=== PATIENT | male | born 1935 | race Caucasian/White ===

== ENCOUNTER → 2016-09-27 | Outpatient (CLI) | payer MEDICARE, OTHER ==
[~2016-09-27] MED LIST: ADV250INH INH; BENI20TA3 PO; CALC1CAP31 PO; CLIN1CAP5 PO; CORE40CA PO; DOXY200C PO; DULO1CAP3 PO; EUCECRE3 TOP; FERR325T3 PO; FURO20TA2 PO; IPRASOL4 INH; LEVE1INJ5 SC; LEVO750T33 PO; OMEP20CA3 PO; RENATAB5 PO; SPIR1CAP INH; VIT D2 PO
[2016-09-27 18:24] LABS: ALBUMIN 3.6 GM/DL (3.2-5.2); ALBUMIN/GLOBULIN RATIO 1.13 (1.00-1.93); BILIRUBIN,TOTAL 0.4 MG/DL (0.2-1.0); CALCIUM LEVEL 8.6 MG/DL (8.8-10.2); CREATININE FOR GFR 1.41 MG/DL (0.70-1.30); GLOMERULAR FILTRATION RATE 51.6 (>42); POTASSIUM SERUM 4.3 MEQ/L (3.5-5.1); TOTAL PROTEIN 6.8 GM/DL (6.4-8.2)
[2016-09-27 19:11] LABS: BASO # 0.1 K/mm3 (0.0-0.2); BASO % 0.8 % (0.0-1.0); EOS # 0.2 K/mm3 (0.0-0.50); EOS % 2.5 % (0.0-3.0); LYMPH % 24.2 % (24.0-44.0); MEAN CORPUSCULAR HEMOGLOBIN 27.3 pg (27.0-33.0); MEAN CORPUSCULAR HGB CONC 30.7 g/dl (32.0-36.5); MONO # 0.5 K/mm3 (0.0-0.8); MONO % 5.9 % (0.0-5.0); NEUTROPHILS # 5.2 K/mm3 (1.8-7.7); NEUTROPHILS % 63.3 % (36.0-66.0); RED CELL DISTRIBUTION WIDTH 14.1 % (11.5-14.5); WHITE BLOOD COUNT 8.1 K/mm3 (4.0-10.0)
== END ==
LOC: M LAB 15:33
PROVIDERS: ATTEND Physician Assistant Medical
DX: E11.9 Type 2 diabetes mellitus without complications (principal); E55.9 Vitamin D deficiency, unspecified

== ENCOUNTER → 2017-01-29 | Outpatient (CLI) | payer MEDICARE, OTHER ==
[~2017-01-29] MED LIST changes: +BENI20TA18 PO; -BENI20TA3 PO; +CLIN150C14 PO; -CLIN1CAP5 PO; +LEVO750T13 PO; -LEVO750T33 PO
[2017-01-29 19:46] LABS: ALBUMIN/GLOBULIN RATIO 1.05 (1.00-1.93); BILIRUBIN,TOTAL 0.7 MG/DL (0.2-1.0); CALCIUM LEVEL 9.5 MG/DL (8.8-10.2); CREATININE FOR GFR 1.58 MG/DL (0.70-1.30); GLOMERULAR FILTRATION RATE 45.3 (>42); POTASSIUM SERUM 4.3 MEQ/L (3.5-5.1); TOTAL PROTEIN 7.8 GM/DL (6.4-8.2)
[2017-01-29 20:10] LABS: BASO # 0.1 K/mm3 (0.0-0.2); EOS # 0.2 K/mm3 (0.0-0.50); EOS % 1.7 % (0.0-3.0); LYMPH # 1.8 K/mm3 (1.5-4.5); LYMPH % 15.8 % (24.0-44.0); MEAN CORPUSCULAR HGB CONC 33.2 g/dl (32.0-36.5); MEAN CORPUSCULAR VOLUME 90.6 fl (80.0-96.0); MONO # 0.5 K/mm3 (0.0-0.8); MONO % 4.8 % (0.0-5.0); NEUTROPHILS # 8.4 K/mm3 (1.8-7.7); NEUTROPHILS % 74.7 % (36.0-66.0); RED CELL DISTRIBUTION WIDTH 13.8 % (11.5-14.5); WHITE BLOOD COUNT 11.2 K/mm3 (4.0-10.0)
== END ==
LOC: M LAB 16:17
PROVIDERS: ATTEND Physician Assistant Medical
DX: E11.9 Type 2 diabetes mellitus without complications (principal)

== ENCOUNTER → 2017-06-16 | Outpatient (CLI) | payer MEDICARE, OTHER ==
[2017-06-16 10:32] LABS: BASO # 0.1 10^3/uL (0.0-0.2); BASO % 0.5 % (0.0-1.0); EOS # 0.2 10^3/uL (0.0-0.50); IMMATURE GRANULOCYTE % 0.6 % (0-0); LYMPH # 1.8 10^3/uL (1.5-4.5); LYMPH % 15.6 % (24.0-44.0); MEAN CORPUSCULAR HEMOGLOBIN 29.4 pg (27.0-33.0); MEAN CORPUSCULAR HGB CONC 32.8 g/dl (32.0-36.5); MEAN CORPUSCULAR VOLUME 89.5 fl (80.0-96.0); MONO # 0.8 10^3/uL (0.0-0.8); MONO % 7.3 % (0.0-5.0); NEUTROPHILS # 8.6 10^3/uL (1.8-7.7); PLATELET COUNT, AUTOMATED 302 10^3/uL (150-450); RED CELL DISTRIBUTION WIDTH 13.4 % (11.5-14.5); WHITE BLOOD COUNT 11.6 10^3/uL (4.0-10.0)
[2017-06-16 11:07] LABS: ALBUMIN 3.5 GM/DL (3.2-5.2); ALBUMIN/GLOBULIN RATIO 1.06 (1.00-1.93); BILIRUBIN,TOTAL 0.6 MG/DL (0.2-1.0); CALCIUM LEVEL 8.9 MG/DL (8.8-10.2); CREATININE FOR GFR 1.31 MG/DL (0.70-1.30); POTASSIUM SERUM 3.5 MEQ/L (3.5-5.1); THYROXINE (T4) 9.1 UG/DL (4.5-12.0); TOTAL PROTEIN 6.8 GM/DL (6.4-8.2)
--- NOTE | 2017-06-16 14:10 | REP ---
MRI BRAIN WITHOUT CONTRAST: HISTORY: Confusion. COMPARISON: 06/13/2015. Areas of increased signal intensity on T2-weighted images are present in the periventricular and subcortical white matter and silva. This represents small vessel ischemic disease. There is no intraparenchymal hemorrhage, infarct, mass or midline shift. The ventricular system and cortical sulci as well as subarachnoid space in the posterior fossa are dilated consistent with mild volume loss. There is no extracerebral collection. The sinuses are clear. IMPRESSION: 1. Small vessel ischemic disease. 2. Mild volume loss. Signed by Sid Wheatley MD 06/16/2017 02:09 P
== END ==
LOC: M LAB 09:58
PROVIDERS: ATTEND Physician Assistant Medical
DX: E11.9 Type 2 diabetes mellitus without complications (principal); R55 Syncope and collapse; R90.82 White matter disease, unspecified

== ENCOUNTER 2017-11-23 16:20 | Emergency (ER) | payer MEDICARE, OTHER ==
[2017-11-23] MEDS: ACETAMINOPHEN TAB 650MG DOSE (2X325MG) PO (17:34)
== END 2017-11-23 18:18 | disposition home or self-care (01) ==
LOC: M ED 16:20
DX: S40.011A Contusion of right shoulder, initial encounter (principal); R91.1 Solitary pulmonary nodule; W01.10XA Fall on same level from slipping, tripping and stumbling with subsequent striking against unspecified object, initial encounter; Y92.099 Unspecified place in other non-institutional residence as the place of occurrence of the external cause; Y93.9 Activity, unspecified; Y99.9 Unspecified external cause status; J44.9 Chronic obstructive pulmonary disease, unspecified; K21.9 Gastro-esophageal reflux disease without esophagitis; Z87.891 Personal history of nicotine dependence; Z79.4 Long term (current) use of insulin; Z79.899 Other long term (current) drug therapy
CPT/HCPCS: 73030

== ENCOUNTER → 2018-11-03 | Outpatient (CLI) | payer MEDICARE, OTHER ==
[~2018-11-03] MED LIST changes: +IPRA0.00 INH; -IPRASOL4 INH
[2018-11-03 16:18] LABS: HEMOGLOBIN A1c 6.9 %
[2018-11-03 16:19] LABS: ALBUMIN 4.1 GM/DL (3.2-5.2); BILIRUBIN,TOTAL 0.5 MG/DL (0.2-1.0); CALCIUM LEVEL 8.9 MG/DL (8.8-10.2); CREATININE FOR GFR 1.51 MG/DL (0.70-1.30); GLOMERULAR FILTRATION RATE 47.5 (>35); POTASSIUM SERUM 3.8 MEQ/L (3.5-5.1); TOTAL PROTEIN 7.3 GM/DL (6.4-8.2)
[2018-11-03 16:37] LABS: TOTAL 25(OH) VITAMIN D 27.7 NG/ML (30.0-100.0)
== END ==
LOC: M LAB 15:12
PROVIDERS: ATTEND Family Medicine Addiction Medicine
DX: E11.9 Type 2 diabetes mellitus without complications (principal)

== ENCOUNTER 2019-02-21 15:41 | Emergency (ER) | payer MEDICARE, OTHER ==
[~2019-02-21] VITALS: Ht 172.7 cm; Wt 93.6 kg
[~2019-02-21 15:41] MED LIST changes: -DULO1CAP3 PO; +DULO1CAP6 PO; +OMEP1CAP73 PO; -OMEP20CA3 PO
[2019-02-21] MEDS ORDERED: IBUPROFEN 600 MG TAB PO ONE (16:30)
[2019-02-21] MEDS ORDERED: NORCO, ANEXSIA 5/325MG TABLET (HYDROcodone/ACETAMINOPHEN) PO ONE (17:30)
--- NOTE | 2019-02-21 17:46 | REP ---
Clinical: Trauma. Technique: AP and lateral views of the right humerus. Findings: There is a comminuted fracture of the humeral surgical neck. Overlying soft tissue swelling. Impression: Comminuted fracture of the humeral surgical neck. Electronically Signed by Zachary Gomez MD 02/21/2019 05:37 P
--- NOTE | 2019-02-21 17:49 | REP ---
Clinical: Trauma. Fall. Technique: Internal rotation, external rotation view of the right shoulder. Findings: There is a comminuted angulated fracture through the humeral neck. Overlying soft tissue swelling noted. Underlying osteopenia and age-related degenerative changes. Impression: Comminuted fracture of the humeral neck. Electronically Signed by Zachary Gomez MD 02/21/2019 05:40 P
--- NOTE | 2019-02-21 17:52 | REP ---
Clinical: Trauma. Fall. Technique: AP and angled views of the right clavicle. Findings: There is a comminuted fracture through the humeral surgical neck. Osteopenia and degenerative changes are appreciated. The clavicle is intact. Impression: 1. No clavicle fracture. 2. Comminuted humeral neck fracture. 3. Underlying osteopenia and degenerative changes. Electronically Signed by Zachary Gomez MD 02/21/2019 05:44 P
[2019-02-21] MEDS ORDERED: NORC1TAB7 PO (18:08)
[2019-02-21 18:15] VITALS: BP 142/91
== END 2019-02-21 18:20 | disposition home or self-care (01) ==
LOC: M ED 15:41
DX: S42.211A Unspecified displaced fracture of surgical neck of right humerus, initial encounter for closed fracture (principal); W18.39XA Other fall on same level, initial encounter; Y92.018 Other place in single-family (private) house as the place of occurrence of the external cause; J44.9 Chronic obstructive pulmonary disease, unspecified; E11.9 Type 2 diabetes mellitus without complications; I10 Essential (primary) hypertension; F41.9 Anxiety disorder, unspecified; K21.9 Gastro-esophageal reflux disease without esophagitis; Z79.899 Other long term (current) drug therapy; Z79.4 Long term (current) use of insulin; Z87.891 Personal history of nicotine dependence

== ENCOUNTER 2019-03-26 17:05 | Inpatient (IN) | payer MEDICARE, OTHER ==
[~2019-03-26] VITALS: Ht 172.7 cm; Wt 88.5 kg
[~2019-03-26 17:05] MED LIST changes: +NORC1TAB7 PO
[2019-03-26 17:38] LABS: BASO # 0.1 10^3/uL (0.0-0.2); BASO % 0.5 % (0.0-1.0); EOS # 0.4 10^3/uL (0.0-0.5); EOS % 2.9 % (0.0-3.0); HEMATOCRIT 43.7 % (42.0-52.0); HEMOGLOBIN 14.3 g/dl (13.5-17.5); LYMPH # 1.9 10^3/uL (1.5-5.0); LYMPH % 13.6 % (24.0-44.0); MEAN CORPUSCULAR HEMOGLOBIN 30.3 pg (27.0-33.0); MEAN CORPUSCULAR HGB CONC 32.7 g/dl (32.0-36.5); MEAN CORPUSCULAR VOLUME 92.6 fl (80.0-96.0); MONO % 6.9 % (0.0-5.0); NEUTROPHILS # 10.8 10^3/uL (1.5-8.5); NEUTROPHILS % 75.5 % (36.0-66.0); PLATELET COUNT, AUTOMATED 354 10^3/uL (150-450); RED BLOOD COUNT 4.72 10^6/uL (4.30-6.10); WHITE BLOOD COUNT 14.3 10^3/uL (4.0-10.0)
[2019-03-26 17:52] LABS: INR 1.04; PROTHROMBIN TIME 13.3 SECONDS (11.8-14.0)
[2019-03-26] MEDS: METOPROLOL 5 MG/5 ML VIAL IV SCH ×3 (17:53→19:10)
[2019-03-26 18:10] LABS: ALBUMIN 3.4 GM/DL (3.2-5.2); ALT/SGPT 40 U/L (12-78); BILIRUBIN,DIRECT 0.3 MG/DL (0.0-0.2); BILIRUBIN,TOTAL 0.6 MG/DL (0.2-1.0); BLOOD UREA NITROGEN 17 MG/DL (7-18); CALCIUM LEVEL 10.1 MG/DL (8.8-10.2); CARBON DIOXIDE LEVEL 27 MEQ/L (21-32); CHLORIDE LEVEL 102 MEQ/L (98-107); CK-MB VALUE MASS < 1.0 NG/ML (<3.6); CPK CREATINE PHOSPHOKINASE 29 U/L (39-308); CREATININE FOR GFR 1.17 MG/DL (0.70-1.30); GLOMERULAR FILTRATION RATE > 60.0 (>35); GLUCOSE, FASTING 150 MG/DL (70-100); MB/CK RELATIVE INDEX 3.45 (< OR =4); NT-PRO BNP 433 PG/ML (<450); POTASSIUM SERUM 4.1 MEQ/L (3.5-5.1); SODIUM LEVEL 138 MEQ/L (136-145); THYROXINE (T4) 9.5 UG/DL (4.5-12.0); TOTAL PROTEIN 7.4 GM/DL (6.4-8.2); TROPONIN I < 0.02 NG/ML (< 0.10)
--- NOTE | 2019-03-26 18:13 | REP ---
Clinical: Cough . Comparison: 05/24/2014 . Findings: The mediastinum and cardiac silhouette are stable and within normal limits for portable technique. The lung heredia demonstrate chronic interstitial changes without focal consolidation, effusion, or pneumothorax. Skeletal structures are intact. Impression: No focal consolidation or effusion. Chronic interstitial changes versus mild interstitial edema. Electronically Signed by Zachary Gomez MD 03/26/2019 06:05 P
[2019-03-26] MEDS ORDERED: LEVALBUTEROL 1.25 MG/0.5 ML CONCENTRATE NEB NEB ONE (18:45)
--- NOTE | 2019-03-26 19:39 | ECGEPIP ---
[facility] - ED Test Date: 2019-03-26 Pat Name: AKASH EARLY Department: Room: - Gender: Male Erp Specialist: lt : 1935 Requested By: SYD ELLER Order Number: [id number] Reading MD: Adonis Ahn Measurements Intervals [place] Rate: 156 P: [place]: 0 QRS: -45 QRSD: 75 T: 41 QT: 276 QTc: 445 Interpretive Statements ATRIAL FIBRILLATION WITH RAPID VENTRICULAR RESPONSE NO PRIORS FOR COMPARISON Electronically Signed on 03-26-2019 19:38:59 EDT by Adonis Ahn
--- NOTE | 2019-03-26 19:50 | HPEPDOC ---
[facility] Medical History & Physical Date of Admission Mar 26, 2019 Date of Service: Mar 26, 2019 Primary Care Physician: A Other Provider Aiden Miranda MD Attending Physician: YVETTE SHEIKH MD History and Physical TIME OF SERVICE: 9:35 PM CHIEF COMPLAINT: Sent by PCP HISTORY OF PRESENT ILLNESS: This is an 83-year-old male who was sent to the ED for evaluation by his PCP. Prior to arrival he "felt dizzy didn't feel right". He went to his PCP who sent him here for evaluation. Specifically, he had dyspnea at rest and with walking. He thinks that his COPD is acting up because of the change in the weather; he had to increase his oxygen from 2 L to 5 L. He has been coughing more than usual, but denies having a change in the color of the sputum. He denies having chest pain, denies any weight, denies having leg swelling. About 2 weeks ago he fell and fractured his right arm which his reports was managed conservatively because of his age, and comorbidities. In the ED, EKG showed A. fib with RVR, which is new. REVIEW OF SYSTEMS: 12 point review of systems negative except as listed in HPI PAST MEDICAL/ SURGICAL HISTORY: COPD with chronic respiratory failure and dependence on 2 L of nasal cannula. Diabetes CKD 3 Dyslipidemia. Chronic Hypertension. Chronic Coronary artery disease GERD. Hemorrhoids. Diverticulosis. Status post resection of colonic polyp Status post incision and drainage of left thigh abscess Status post repair of right humeral fracture Status post cholecystectomy Status post inguinal hernia repair SOCIAL HISTORY: Former smoker FAMILY HISTORY: CAD Diabetes ALLERGIES: Please see below. HOME MEDICATIONS: Please see below. PHYSICAL EXAMINATION: VITAL SIGNS: Please see below. GENERAL APPEARANCE: Well-nourished, well-developed, not in apparent distress HEENT: Normocephalic, atraumatic, nasal cannula, place, mucous membranes slightly dry CARDIOVASCULAR: Heart rate irregularly irregular, there is no lower extremity edema LUNGS: The patient is unable to speak full sentences without having to stop to rest, he is using accessory muscles to breathe. There is equal air entry bilaterally, along with expiratory wheezing bilaterally ABDOMEN: Soft, nontender and not distended MUSCULOSKELETAL: Range of motion intact in all 4 extremities except for left arm which is in a sling NEUROLOGICAL: Numerous 2-12 are grossly intact. Speech is not dysarthric PSYCHIATRIC: Alert and oriented, able to understand and follow commands LABORATORY DATA: See below. IMAGING: Chest x-ray is negative for a focal consolidation, or effusion. There are chronic interstitial changes may also represent mild interstitial edema MICROBIOLOGY: Please see below. ASSESSMENT: Mr. English is an 83-year-old male with a past medical history of insulin- dependent diabetes mellitus, COPD, CKD 3 dyslipidemia and hypertension will be admitted for management of newly diagnosed A. fib with RVR, and acute COPD. PLAN: 1. Multifactorial Dyspnea Secondary to acute COPD and A. fib with RVR Patient is not back to his baseline of 2 L of O2 BNP wnl Plan: admit to PCU for management of A.fib / O2 via NC / f/u D-dimer to rule out A. fib as the patient recently had a heart fracture & ABG 2. A. fib with RVR -likely 2/2 acute COPD / will r/o PE -EKG per HPI -Trop, BNP, TSH, K, Ca wnl -CHADS VASC Score to determine risk of stroke = 5 = needs aC Plan: telemetry / f/u serial trops / rate rhythm control w Metoprolol 25mg PO BID / anticoagulant w heparin drip pending Echo to r/o valvulopathy / pt will also need outpatient sleep study 3. Acute on chronic COPD Likely due to the change in the weather causing bronchitis SIRS criteria include leukocytosis and tachycardia , but clinically the patient does not appear septic Chest x-ray didn't show any acute process Plan: f/u ABG , d-dimer, O2 / continue Spiriva/Dunebs Q6H, Albuterol Q4HP, Prednisone + PPI / levofloxacin/Tessalon Pearls / refer to [facility] for repeat PFTs and Pulmonary Rehab when ready for d/c 4. Hypomagnesemia. Plan: Repeat magnesium and follow up lytes in the morning 5. Old left arm fracture. Plan: Continue with sling / lidocaine patch, Tylenol and tramadol for pain, 6. Diabetes Plan: diabetic diet / f/u accuchecks & A1C / hypoglycemia protocol / the tumor 26 units daily + sliding scale insulin / hold oral anti-glycemics 7. Chronic Hypertension. Plan: Continue home meds 8 Chronic Coronary artery disease /Dyslipidemia. Plan: Continue home meds 9. CKD 3 At baseline Plan: Follow-up BMP daily. Avoid nephrotoxins 10 GERD. Plan: PPIs 11.Overweight BMI 29 Plan: f/u w PCP to discuss diet / recommend 40 min of cardiovascular exercise 4- 5 days a week DVT prophylaxis with heparin drip pending Echo to rule out valvulopathy Disposition pending clinical course Vital Signs Vital Signs Date Time Temp Pulse Resp B/P (MAP) Pulse Ox O2 Delivery O2 Flow Rate FiO2 03/26/19 19:10 98 133/84 03/26/19 18:00 Room Air 03/26/19 17:10 97.4 26 97 2.0 Laboratory Data Labs 24H Laboratory Tests 2 03/26/19 17:19: Immature Granulocyte % (Auto) 0.6, White Blood Count 14.3H, Red Blood Count 4.72, Hemoglobin 14.3, Hematocrit 43.7, Mean Corpuscular Volume 92.6, Mean Corpuscular Hemoglobin 30.3, Mean Corpuscular Hemoglobin Concent 32.7, Red Cell Distribution Width 14.0, Platelet Count 354, Neutrophils (%) (Auto) 75.5H, Lymphocytes (%) (Auto) 13.6L, Monocytes (%) (Auto) 6.9H, Eosinophils (%) (Auto) 2.9, Basophils (%) (Auto) 0.5, Neutrophils # (Auto) 10.8H, Lymphocytes # (Auto) 1.9, Monocytes # (Auto) 1.0H, Eosinophils # (Auto) 0.4, Basophils # (Auto) 0.1, Nucleated Red Blood Cells % (auto) 0.0, Prothrombin Time 13.3, Prothromb Time I nternational Ratio 1.04, Anion Gap 9, Glomerular Filtration Rate > 60.0, Calcium Level 10.1, Aspartate Amino Transf (AST/SGOT) 30, Alanine Aminotransferase (ALT/SGPT) 40, Alkaline Phosphatase 155H, Total Bilirubin 0.6, Direct Bilirubin 0.3H, Total Creatine Kinase 29L, Creatine Kinase MB < 1.0, Creatine Kinase MB Relative Index 3.45, Troponin I < 0.02, SW-Cgh-U-Type Natriuretic Peptide 433, Total Protein 7.4, Albumin 3.4, Albumin/Globulin Ratio 0.85L, Thyroid Stimulating Hormone (TSH) 2.180, Thyroxine (T4) 9.5 03/26/19 17:20: Lactic Acid Level 1.6 03/26/19 17:22: POC pH (Misc Panel) 7.381, POC Base Excess (Misc Panel) 0.0, POC Saturated Percent O2 (Misc) 96, POC pO2 (Misc Panel) 83.0, POC pCO2 (Misc Panel) 41.6, POC HCO3 (Misc Panel) 24.7, POC Total CO2 (Misc Panel) 26.0 CBC/BMP Laboratory Tests 03/26/19 17:19 Red Blood Count 4.72, Mean Corpuscular Volume 92.6, Mean Corpuscular Hemoglobin 30.3, Mean Corpuscular Hemoglobin Concent 32.7, Red Cell Distribution Width 14.0, Neutrophils (%) (Auto) 75.5 H, Lymphocytes (%) (Auto) 13.6 L, Monocytes (%) (Auto) 6.9 H, Eosinophils (%) (Auto) 2.9, Basophils (%) (Auto) 0.5, Neutrophils # (Auto) 10.8 H, Lymphocytes # (Auto) 1.9, Monocytes # (Auto) 1.0 H, Eosinophils # (Auto) 0.4, Basophils # (Auto) 0.1 Microbiology Microbiology 03/26/19 Blood Culture, Received Pending 03/26/19 Blood Culture, Received Pending Home Medications Scheduled Duloxetine Hcl (Duloxetine HCl) 60 Mg Cap, 60 MG PO DAILY Ergocalciferol (Vitamin D2) (Vitamin D2) 50,000 Unit Capsule, 50,000 UNIT PO 1XWK TAKES ON FRIDAY Ferrous Sulfate (Ferrous Sulfate) 325 Mg Tab, 325 MG PO DAILY Insulin Detemir (Levemir Flextouch) 100 Unit/Ml Inj, 26 UNIT SC DAILY Ipratropium/Albuterol Sulfate (Iprat-Albut 0.5-3(2.5) mg/3 ml) 1 Lia Lia, 1 INH INH Q4H Omeprazole (Omeprazole) 20 Mg Cap, 20 MG PO DAILY Salmeterol/Fluticasone (Advair 250-50 Diskus) 14 Puff/Inhaler Aerp, 1 PUFF INH B ID Tiotropium [place] (Spiriva) 18 Mcg Cap, 1 INH INH DAILY Allergies Coded Allergies: No Known Allergies (Verified , 03/06/04) A-FIB/CHADSVASC A-FIB History Current/History of A-Fib/PAF?: Yes Current PO Anticoag Therapy: Yes Age/Risk Factor Scoring CHADSVASC: CHADSVASC Response (Comments) Value Age Risk Factor Age >/= 75 years old 2 Gender Risk Factor Male 0 Hx of CHF No 0 Hx of HTN Yes 1 Hx of Stroke/TIA/or VTE No 0 Hx of Diabetes Yes 1 Hx of Vascular Disease Yes 1 Total 5 YVETTE SHEIKH MD Mar 26, 2019 19:50
[2019-03-26] MEDS ORDERED: HEPARIN SOD (PORCINE) 5000 UNITS/ML VIAL IV STA (20:09)
[2019-03-26] MEDS ORDERED: methylPREDNISolone INJ 125 MG/2 ML VIAL (J2930) IV STA (20:09)
[2019-03-26] MEDS ORDERED: ALBUTEROL SULFATE 2.5 MG/0.5 ML INH NEB SOLN NEB PRN (20:15)
[2019-03-26] MEDS ORDERED: DEXTROSE 50% 50 ML SYRINGE IV PRN (20:15)
[2019-03-26] MEDS ORDERED: VITA50005 PO (20:23)
[2019-03-26] MEDS: HumaLOG INSULIN (NovoLOG) PER UNIT SC SCH (20:48)
[2019-03-26] MEDS ORDERED: BENZONATATE 100 MG CAP PO ONE (21:00)
[2019-03-26] MEDS: METOPROLOL TART 25 MG TABLET PO SCH (21:03)
[2019-03-26 21:51] LABS: CPK CREATINE PHOSPHOKINASE 30 U/L (39-308); MAGNESIUM LEVEL 1.5 MG/DL (1.8-2.4); MB/CK RELATIVE INDEX 3.33 (< OR =4); TROPONIN I < 0.02 NG/ML (< 0.10)
[2019-03-26] MEDS ORDERED: MAGNESIUM OXIDE 400 MG TAB (MAG-OX) PO ONE (22:30)
[2019-03-26] MEDS ORDERED: LevoFLOXacin IV 500 MG in IV 1 EA IV ONE (22:30)
[2019-03-26] MEDS ORDERED: ISOVUE-370 76% 100ML VIAL (Q9967) As Ordered ONE (22:30)
--- NOTE | 2019-03-26 23:13 | REPVR ---
EXAM: CT Angiography Chest With Contrast EXAM DATE/TIME: 03/26/2019 10:41 PM CLINICAL HISTORY: 83 years old, male; Dyspnea; Additional info: Dyspnea, recent arm fracture, elevated d-dimer TECHNIQUE: Imaging protocol: Computed tomographic angiography of the chest with intravenous contrast. 3D rendering: MIP reconstructed images were created and reviewed. Radiation optimization: All CT scans at this facility use at least one of these dose optimization techniques: automated exposure control; mA and/or kV adjustment per patient size (includes targeted exams where dose is matched to clinical indication); or iterative reconstruction. Contrast material: ISOVUE 370; Contrast volume: 75 ml; Contrast route: IV; COMPARISON: CT CHEST W/O CONTRAST - OUTSIDE PRIOR 06/01/2015 1:51 PM FINDINGS: Pulmonary arteries: There are no pulmonary emboli. Aorta: The aorta demonstrates mild atherosclerotic calcification. There is no aortic dissection or aneurysm. Lungs: Focus of parenchymal scarring right apex. Irregular parenchymal opacity in the right upper lobe measuring approximately 1.5 x 3.6 cm associated with pleural tenting may represent postsurgical changes which should be correlated clinically. The opacity is in the same location of a previously demonstrated right upper lobe nodule. Increase interstitial markings demonstrated bilaterally most pronounced in the lower lung zones. Bilateral centrilobular emphysematous changes stable in appearance. Pleural space: Unremarkable. No pneumothorax. No pleural effusion. Heart: Unremarkable. No cardiomegaly. No pericardial effusion. Lymph nodes: Unremarkable. No enlarged lymph nodes. Bones/joints: Fractured proximal humerus on the right. Rib deformity lateral aspect of the right third rib may be related to prior fracture and/or postsurgical changes. The spine demonstrates mild degenerative changes. Soft tissues: Unremarkable. IMPRESSION: 1. Bilateral centrilobular emphysematous changes stable in appearance. 2. There is no aortic dissection or aneurysm. 3. There are no pulmonary emboli. Electronically signed by: Cuauhtemoc Nickerson On 03/26/2019 23:12:51 PM
[2019-03-26] MEDS: LIDOCAINE 5% (LIDODERM) PATCH TD SCH (23:26)
[2019-03-27] VITALS (7 sets, daily range): BP systolic 108–171; BP diastolic 58–89
[2019-03-27] MEDS: traMADol ER 100MG TABLET (ULTRAM ER) PO SCH ×2 (00:38→20:32)
[2019-03-27] MEDS: ACETAMINOPHEN 650MG ER TAB (TYLENOL ARTHRITIS) PO SCH ×3 (00:38→20:32)
[2019-03-27] MEDS ORDERED: IPRATROPIUM 0.5MG/ALBUTEROL 2.5MG INH SOL UD 3ML (DUONEB)(J7620) NEB SCH (02:00)
[2019-03-27 04:33] LABS: HEMOGLOBIN 12.5 g/dl (13.5-17.5); MEAN CORPUSCULAR HEMOGLOBIN 29.6 pg (27.0-33.0); MEAN CORPUSCULAR HGB CONC 32.1 g/dl (32.0-36.5); MEAN CORPUSCULAR VOLUME 92.2 fl (80.0-96.0); PLATELET COUNT, AUTOMATED 291 10^3/uL (150-450); RED BLOOD COUNT 4.23 10^6/uL (4.30-6.10); WHITE BLOOD COUNT 7.8 10^3/uL (4.0-10.0)
[2019-03-27 04:55] LABS: BLOOD UREA NITROGEN 19 MG/DL (7-18); CARBON DIOXIDE LEVEL 27 MEQ/L (21-32); CHLORIDE LEVEL 102 MEQ/L (98-107); GLOMERULAR FILTRATION RATE > 60.0 (>35); GLUCOSE, FASTING 189 MG/DL (70-100); MAGNESIUM LEVEL 1.5 MG/DL (1.8-2.4); POTASSIUM SERUM 4.9 MEQ/L (3.5-5.1); SODIUM LEVEL 136 MEQ/L (136-145)
[2019-03-27 05:05] LABS: HEMOGLOBIN A1c 7.5 %
[2019-03-27 05:08] LABS: CK-MB VALUE MASS < 1.0 NG/ML (<3.6); CPK CREATINE PHOSPHOKINASE 25 U/L (39-308); TROPONIN I < 0.02 NG/ML (< 0.10)
[2019-03-27] MEDS: LevoFLOXacin 250 MG TABLET PO SCH (06:33)
[2019-03-27] MEDS: LEVALBUTEROL 1.25 MG/0.5 ML CONCENTRATE NEB INH SCH ×3 (08:04→19:29)
[2019-03-27] MEDS: TIOTROPIUM INHALER/CAPSULE (SPIRIVA) INH SCH (08:04)
[2019-03-27] MEDS: ASPIRIN 81 MG ENTERIC TAB PO SCH (08:47)
[2019-03-27] MEDS: DULoxetine 30 MG CAP (CYMBALTA) PO SCH (08:47)
[2019-03-27] MEDS: predniSONE 20 MG TAB PO SCH (08:47)
[2019-03-27] MEDS: METOPROLOL TART 25 MG TABLET PO SCH ×2 (08:48→20:34)
[2019-03-27] MEDS: HumaLOG INSULIN (NovoLOG) PER UNIT SC SCH ×4 (08:48→20:23)
[2019-03-27] MEDS: PANTOPRAZOLE 40MG TAB (PROTONIX) PO SCH (08:48)
[2019-03-27] MEDS: LEVEMIR (INSULIN DETEMIR) 1 UNITS/0.01ML SC SCH (08:49)
[2019-03-27] MEDS ORDERED: PREVNAR 13 VACCINE SYRINGE (CPT CODE:90670) IM ONE (09:00)
[2019-03-27] MEDS: **NOTE PATIENT COMMENT** MISC XX SCH (09:11)
--- NOTE | 2019-03-27 14:04 | REP ---
Clinical: Ataxia and gait disturbances. Comparison: MRI of the brain dated 06/16/2017 Findings: Age-related atrophy and microvascular ischemic changes are appreciated. The ventricles and sulci are symmetric. Kumar-white differentiation is maintained. There is no evidence for acute intracranial hemorrhage, mass/mass effect, pathology or infarction. No extra-axial fluid collection. Calvarium is intact. Paranasal sinuses and mastoid air cells are clear. Impression: Age related atrophy and microvascular ischemic changes. No acute intracranial hemorrhage, infarction, or mass/mass effect. Electronically Signed by Zachary Gomez MD 03/27/2019 01:56 P
[2019-03-27] MEDS: MAG SULF 1GM/100ML (MAG RUN) 1 GM in IV 1 EA IV SCH ×2 (14:16→15:05)
--- NOTE | 2019-03-27 15:13 | IPN ---
DATE: 03/27/2019 SUBJECTIVE:The patient's is sleeping at the bedside. The patient is pleasantly confused but he denies any lightheadedness, dizziness, chest pain, pressure or tightness. Shortness of breath slightly improved but still has occasional cough with white-yellow sputum. He denies any fever or chills overnight. OBJECTIVE: PHYSICAL EXAMINATION: VITAL SIGNS: Temperature 97.5, pulse 77, respiratory rate 16, blood pressure 108/58, 96% on two liters nasal cannula. GENERAL: The patient is awake, alert, and oriented to himself. He is pleasantly confused but answers questions appropriately. He is not using respiratory accessory muscles. Anicteric sclerae. No jaundice. Dry mucous membranes. HEART: S1, S2, irregularly irregular. LUNGS: Diminished with bilateral wheezing. No tripod positioning or use of respiratory accessory muscles. Air entry is diminished. ABDOMEN: Soft, nontender, nondistended. Positive bowel sounds. No rebound, guarding or hepatosplenomegaly. No carotid bruits noted. EXTREMITIES: Right arm is in a sling. Lower extremities have no lower extremity edema, clubbing or cyanosis. LABORATORY DATA: White count 7.8, hemoglobin 12, hematocrit 39, platelet count 291. Sodium 136, potassium 4.5, chloride 102, bicarbonate 27, BUN 19, creatinine 1.10, glucose 199, magnesium of 1.5. ASSESSMENT AND PLAN: This is an 83-year-old male with history of falls at home with a fracture of the right arm managed conservatively, presented to the emergency room with complaints of dizziness, found to have atrial fibrillation with rapid ventricular response (RVR) as well as worsening shortness of breath. He has past history significant for chronic obstructive pulmonary disease (COPD) on two liters nasal cannula with chronic hypoxic respiratory failure, type 2 diabetes, chronic kidney disease (CKD) stage III, dyslipidemia, hypertension, coronary artery disease (CAD), reflux, hemorrhoids, diverticulosis, colonic polyp, drainage of left thigh abscess, right humeral fracture repair, cholecystectomy and inguinal hernia repair. ACTIVE ISSUES: 1. Atrial fibrillation with rapid ventricular rate. The patient has been given metoprolol twice a day with significant improvement in rate control. He is currently placed on aspirin 81 mg due to recurrent falls with recent fractured arm on the right. Echocardiogram has been obtained. We will discuss with physical therapy regarding balance issues. He is at high risk of intracranial hemorrhage due to his gait imbalance. We will obtain CT of the head to rule out cerebellar cerebrovascular accident (CVA). 2. Chronic obstructive pulmonary disease (COPD) exacerbation. The patient is currently on prednisone, nebulizer treatments, Levaquin, and supplemental oxygen. Xopenex 0.63 and Spiriva to be continued. 3. Chronic hypoxic respiratory failure, on two liters of oxygen. Continue with goal saturations of 88% to 92%. 4. Type 2 diabetes. Consistent-carbohydrate diet, Levemir insulin, insulin sliding scale, and hypoglycemic protocol. 5. Recurrent falls. At risk for intracranial hemorrhage if the patient is placed on Eliquis or Xarelto. 6. Pain control with tramadol. Monitor for altered mental status changes. 7. Right arm fracture. Managed conservatively. Orthopedic followup and physical therapy as outpatient. 8. History of chronic kidney disease, stage III. Avoid nephrotoxins, renally dose all medications. 9. Low magnesium level. Supplement with magnesium runs times two and recheck magnesium level with next blood draw. MTDD
[2019-03-27] MEDS: LIDOCAINE 5% (LIDODERM) PATCH TD SCH (20:34)
[2019-03-28 02:00] VITALS: BP 125/73
[2019-03-28] MEDS: LevoFLOXacin 250 MG TABLET PO SCH (05:36)
[2019-03-28 06:00] VITALS: BP 119/74
[2019-03-28 06:42] LABS: BASO % 0.2 % (0.0-1.0); EOS % 0.2 % (0.0-3.0); HEMATOCRIT 33.1 % (42.0-52.0); LYMPH # 1.7 10^3/uL (1.5-5.0); LYMPH % 15.8 % (24.0-44.0); MEAN CORPUSCULAR HEMOGLOBIN 29.5 pg (27.0-33.0); MEAN CORPUSCULAR HGB CONC 33.2 g/dl (32.0-36.5); MEAN CORPUSCULAR VOLUME 88.7 fl (80.0-96.0); MONO # 1.1 10^3/uL (0.0-0.8); MONO % 9.6 % (0.0-5.0); NEUTROPHILS # 8.1 10^3/uL (1.5-8.5); NEUTROPHILS % 73.4 % (36.0-66.0); PLATELET COUNT, AUTOMATED 252 10^3/uL (150-450); RED BLOOD COUNT 3.73 10^6/uL (4.30-6.10)
[2019-03-28 07:07] LABS: CALCIUM LEVEL 8.8 MG/DL (8.8-10.2); CREATININE FOR GFR 1.41 MG/DL (0.70-1.30); GLOMERULAR FILTRATION RATE 51.4 (>35); POTASSIUM SERUM 3.9 MEQ/L (3.5-5.1)
[2019-03-28] MEDS: TIOTROPIUM INHALER/CAPSULE (SPIRIVA) INH SCH (07:52)
[2019-03-28] MEDS: LEVALBUTEROL 1.25 MG/0.5 ML CONCENTRATE NEB INH SCH ×3 (08:00→19:34)
--- NOTE | 2019-03-28 08:23 | ECHO ---
DATE OF PROCEDURE: 03/27/2019 Date of : 1935 Age: 83 Gender: Male. Height: 68 inches Weight: 196 pounds Body surface area: 2.03 meters squared Inpatient: Progressive care unit (PCU), room 3228. REFERRING PHYSICIAN: Dr. Jennyfer Burgess INDICATION: Dyspnea. MEASUREMENTS: 2D Measurements: RV: 3.4 cm LV: 4.8 cm Septum: 0.9 cm Posterior wall: 0.9 cm Aortic root: 3.6 cm LA: 3.4 cm LVEF: 65% Doppler Measurements: AV: 1.37 meters per second LVOT: 0.87 meters per second LVOT diameter: 2.0 cm MV-E: 74, A: 87, EA ratio: 0.9 Early mitral deceleration time: 271 milliseconds E prime: 5.8, A prime: 7.5, E/E prime ratio: 12.8 PCWP: 12 mmHg PV: 0.75 meters per second Pulmonary artery acceleration time: 144 milliseconds RVSP: 27 mmHg IVC: 1.8 cm COMMENTS: Normal sinus rhythm without intraventricular conductance disturbance. Technically difficult study in light of the patient's body habitus but some diagnostically useful information was still obtained. Normal left ventricular size, wall thickness and wall motion. Normal left atrial size with Doppler evidence of impairment of left ventricular (LV) diastolic function in keeping with his age. Current estimated mean left atrial pressure was still normal. Normal right heart chamber sizes and motion and estimated pulmonary arterial pressure. Normal IVC size and collapse against an elevated central venous pressure. Aortic valvular sclerosis without stenosis and only trace insufficiency. Mild mitral annular calcification with only trace insufficiency. No apparent intracardiac mass or pericardial effusion.
[2019-03-28] MEDS ORDERED: NS 250 ML IV ONE (09:00)
[2019-03-28] MEDS: predniSONE 20 MG TAB PO SCH (09:14)
[2019-03-28] MEDS: PANTOPRAZOLE 40MG TAB (PROTONIX) PO SCH (09:14)
[2019-03-28] MEDS: ASPIRIN 81 MG ENTERIC TAB PO SCH (09:15)
[2019-03-28] MEDS: atenoloL 50 MG TAB PO SCH ×2 (09:15→21:10)
[2019-03-28] MEDS: DULoxetine 30 MG CAP (CYMBALTA) PO SCH (09:15)
[2019-03-28] MEDS: LEVEMIR (INSULIN DETEMIR) 1 UNITS/0.01ML SC SCH (09:16)
[2019-03-28] MEDS: ACETAMINOPHEN 650MG ER TAB (TYLENOL ARTHRITIS) PO SCH ×2 (09:16→21:10)
[2019-03-28] MEDS: HumaLOG INSULIN (NovoLOG) PER UNIT SC SCH ×4 (09:16→20:39)
[2019-03-28] MEDS: NYSTATIN 100,000 UNITS/GM TOPICAL PWD 15 GM TOP SCH (09:17)
[2019-03-28] MEDS: **NOTE PATIENT COMMENT** MISC XX SCH (09:21)
[2019-03-28 10:00] VITALS: BP 102/65
--- NOTE | 2019-03-28 11:06 | REP ---
Clinical: Cough . Comparison: 03/26/2019 . Findings: The mediastinum and cardiac silhouette are stable and within normal limits for portable technique. The lung heredia demonstrate stable chronic-appearing changes without acute consolidation, effusion, or pneumothorax. Skeletal structures are intact. Impression: No change from prior examination. No obvious acute cardiopulmonary process appreciated. Electronically Signed by Zachary Gomez MD 03/28/2019 10:57 A
--- NOTE | 2019-03-28 11:29 | REP ---
Clinical: Acute renal failure. Technique: Real time swanson scale and color evaluation using curved array transducer. Findings: Bilateral kidneys are normal in reniform shape with increased central sinus fat and cortical thinning suggesting chronic renal disease. No hydronephrosis, obvious nephrolithiasis, or renal mass lesion. No perinephric fluid collection identified. Right kidney measures 10.1 x 4.0 x 5.0 cm and includes 4.1 x 4.4 x 3.4 cm simple upper pole cyst. Left kidney measures 11.2 x 4.3 x 5.2 cm. Bladder is grossly unremarkable and bilateral ureteral jets are noted. Impression: 1. No hydronephrosis. 2. Chronic medical renal disease and 4.4 cm right upper pole cyst. Electronically Signed by Zachary Gomez MD 03/28/2019 11:22 A
[2019-03-28 14:00] VITALS: BP 102/69
--- NOTE | 2019-03-28 15:42 | IPNPDOC ---
Date Seen The patient was seen on 03/28/19. Progress Note SUBJECTIVE: SOB and DEGROOT unchanged. still w cough productive of white sputum . no fever or chills. says he seems better. no pnd orthopnea, palpitations, lightheadedness, or dizziness. creatinine abn admits to decreased oral intake, but denies diarrhea. says pt has difficulty starting a urinary stream or maintaining urine output concernig for prostate issues. pvr ordered, and pt encouraged to increase oral fluid intake. OBJECTIVE: PHYSICAL EXAMINATION: VITAL SIGNS: PLS SEE BELOW GENERAL: alert and oriented to himself and place. Anicteric sclerae. No jaundice. Dry mucous membranes. HEART: S1, S2, irregularly irregular. LUNGS: Diminished with bilateral wheezing. No tripod positioning or use of respiratory accessory muscles. Air entry is diminished. ABDOMEN: Soft, nontender, nondistended. Positive bowel sounds. No rebound, guarding or hepatosplenomegaly. No carotid bruits noted. EXTREMITIES: Right arm is in a sling. Lower extremities have no lower extremity edema, clubbing or cyanosis. LABORATORY DATA, MICROBIOLOGY, IMAGING STUDIES: PLS SEE BELOW ASSESSMENT AND PLAN: This is an 83-year-old male with history of falls at home with a fracture of the right arm managed conservatively, presented to the emergency room with complaints of dizziness, found to have atrial fibrillation with rapid ventricular response (RVR) as well as worsening shortness of breath. He has past history significant for chronic obstructive pulmonary disease (COPD) on two liters nasal cannula with chronic hypoxic respiratory failure, type 2 diabetes, chronic kidney disease (CKD) stage III, dyslipidemia, hypertension, coronary artery disease (CAD), reflux, hemorrhoids, diverticulosis, colonic polyp, drainage of left thigh abscess, right humeral fracture repair, cholecystectomy and inguinal hernia repair. Atrial fibrillation with rapid ventricular rate. rate control with atenolol. ASA for AC due to risk of ICH with gait imbalance and h/o recurrent falls with right arm injury. CT head: no cerebellar CVA Chronic obstructive pulmonary disease (COPD) exacerbation. The patient is currently on prednisone, nebulizer treatments, Levaquin, and supplemental oxygen. Xopenex 0.63 and Spiriva to be continued. Chronic hypoxic respiratory failure, on two liters of oxygen. Continue with goal saturations of 88% to 92%. Type 2 diabetes. Consistent-carbohydrate diet,decreased Levemir insulin due to glucose 77, insulin sliding scale, and hypoglycemic protocol. Recurrent falls. At risk for intracranial hemorrhage if the patient is placed on Eliquis or Xarelto. on low dose ASA for Afib Pain control with tramadol. Monitor for altered mental status changes. Right arm fracture. Managed conservatively. Orthopedic followup and physical therapy as outpatient. History of chronic kidney disease, stage III. Avoid nephrotoxins, renally dose all medications. encourage oral fluid intake. check pvr and bladder scan. renal us no hydronephrosis Low magnesium level.,resolved Supplemented with magnesium runs times two and serial magnesium level until normal disposition: await PT clearance. VS, I&O, 24H, Fishbone Vital Signs/I&O Vital Signs Date Time Temp Pulse Resp B/P (MAP) Pulse Ox O2 Delivery O2 Flow Rate FiO2 03/28/19 14:00 97.0 68 17 102/69 (80) 93 2.0 03/26/19 23:30 Nasal Cannula I&O- Last 24 Hours up to 6 AM 03/28/19 05:59 Intake Total 810 ml Output Total 275 ml Balance 535 ml Laboratory Data 24H LABS Laboratory Tests 2 03/27/19 16:52: Bedside Glucose (Misc Panel) 238H 03/27/19 20:17: Bedside Glucose (Misc Panel) 191H 03/27/19 20:24: Magnesium Level 2.2 03/28/19 06:15: Immature Granulocyte % (Auto) 0.8, White Blood Count 11.0H, Red Blood Count 3.73L, Hemoglobin 11.0L, Hematocrit 33.1L, Mean Corpuscular Volume 88.7, Mean Corpuscular Hemoglobin 29.5, Mean Corpuscular Hemoglobin Concent 33.2, Red Cell Distribution Width 13.6, Platelet Count 252, Neutrophils (%) (Auto) 73.4H, Lymphocytes (%) (Auto) 15.8L, Monocytes (%) (Auto) 9.6H, Eosinophils (%) (Auto) 0.2, Basophils (%) (Auto) 0.2, Neutrophils # (Auto) 8.1, Lymphocytes # (Auto) 1.7, Monocytes # (Auto) 1.1H, Eosinophils # (Auto) 0.0, Basophils # (Auto) 0.0, Nucleated Red Blood Cells % (auto) 0.0, Anion Gap 11, Glomerular Filtration Rate 51.4, Blood Urea Nitrogen 35#H, Creatinine 1.41H, Sodium Level 136, Potassium Level 3.9#, Chloride Level 101, Carbon Dioxide Level 24, Calcium Level 8.8 03/28/19 11:29: Bedside Glucose (Misc Panel) 77L CBC/BMP Laboratory Tests 03/28/19 06:15 Red Blood Count 3.73 L, Mean Corpuscular Volume 88.7, Mean Corpuscular Hemoglobin 29.5, Mean Corpuscular Hemoglobin Concent 33.2, Red Cell Distribution Width 13.6, Neutrophils (%) (Auto) 73.4 H, Lymphocytes (%) (Auto) 15.8 L, Monocytes (%) (Auto) 9.6 H, Eosinophils (%) (Auto) 0.2, Basophils (%) (Auto) 0.2, Neutrophils # (Auto) 8.1, Lymphocytes # (Auto) 1.7, Monocytes # (Auto) 1.1 H, Eosinophils # (Auto) 0.0, Basophils # (Auto) 0.0, Calcium Level 8.8 Microbiology Microbiology 03/26/19 Blood Culture - Preliminary, Resulted No growth after 24 hours . All specim... 03/26/19 Blood Culture - Preliminary, Resulted No growth after 24 hours . All specim... JESSICA NAIR MD Mar 28, 2019 15:30
[2019-03-28 18:00] VITALS: BP 115/61
[2019-03-28] MEDS: traMADol ER 100MG TABLET (ULTRAM ER) PO SCH (21:10)
[2019-03-28] MEDS: LIDOCAINE 5% (LIDODERM) PATCH TD SCH (21:11)
[2019-03-28 22:00] VITALS: BP 115/62
[2019-03-29] MEDS: LevoFLOXacin 250 MG TABLET PO SCH (05:24)
[2019-03-29 06:00] VITALS: BP 141/75
[2019-03-29] MEDS: TIOTROPIUM INHALER/CAPSULE (SPIRIVA) INH SCH (07:43)
[2019-03-29] MEDS: LEVALBUTEROL 1.25 MG/0.5 ML CONCENTRATE NEB INH SCH ×3 (08:58→20:45)
[2019-03-29 09:21] LABS: HEMATOCRIT 34.3 % (42.0-52.0); MEAN CORPUSCULAR HEMOGLOBIN 28.6 pg (27.0-33.0); MEAN CORPUSCULAR HGB CONC 32.1 g/dl (32.0-36.5); MEAN CORPUSCULAR VOLUME 89.1 fl (80.0-96.0); PLATELET COUNT, AUTOMATED 262 10^3/uL (150-450); RED BLOOD COUNT 3.85 10^6/uL (4.30-6.10); WHITE BLOOD COUNT 7.6 10^3/uL (4.0-10.0)
[2019-03-29 09:43] LABS: BLOOD UREA NITROGEN 36 MG/DL (7-18); CALCIUM LEVEL 8.9 MG/DL (8.8-10.2); CARBON DIOXIDE LEVEL 30 MEQ/L (21-32); CHLORIDE LEVEL 102 MEQ/L (98-107); CREATININE FOR GFR 1.23 MG/DL (0.70-1.30); GLOMERULAR FILTRATION RATE > 60.0 (>35); GLUCOSE, FASTING 97 MG/DL (70-100); SODIUM LEVEL 139 MEQ/L (136-145)
[2019-03-29 10:00] VITALS: BP 116/58
[2019-03-29] MEDS: HumaLOG INSULIN (NovoLOG) PER UNIT SC SCH ×4 (10:05→20:36)
[2019-03-29] MEDS: predniSONE 20 MG TAB PO SCH (10:06)
[2019-03-29] MEDS: DULoxetine 30 MG CAP (CYMBALTA) PO SCH (10:06)
[2019-03-29] MEDS: PANTOPRAZOLE 40MG TAB (PROTONIX) PO SCH (10:07)
[2019-03-29] MEDS: ASPIRIN 81 MG ENTERIC TAB PO SCH (10:07)
[2019-03-29] MEDS: ACETAMINOPHEN 650MG ER TAB (TYLENOL ARTHRITIS) PO SCH ×2 (10:08→21:19)
[2019-03-29] MEDS: atenoloL 50 MG TAB PO SCH ×2 (10:08→21:19)
[2019-03-29] MEDS: LEVEMIR (INSULIN DETEMIR) 1 UNITS/0.01ML SC SCH (10:09)
[2019-03-29] MEDS: NYSTATIN 100,000 UNITS/GM TOPICAL PWD 15 GM TOP SCH (10:10)
[2019-03-29] MEDS: **NOTE PATIENT COMMENT** MISC XX SCH (10:13)
[2019-03-29] MEDS ORDERED: traMADol 50 MG TAB PO ONE (13:00)
[2019-03-29 14:00] VITALS: BP 114/59
--- NOTE | 2019-03-29 15:24 | IPNPDOC ---
Date Seen The patient was seen on 03/29/19. Progress Note SUBJECTIVE: still with some residual cough with scant sputum, breathing is better but not back to baseline. no fever, chills, or chest pain not cleared by physical therapy. OBJECTIVE: PHYSICAL EXAMINATION: VITAL SIGNS: PLS SEE BELOW GENERAL: alert and oriented to himself and place. no conversational dyspnea or use of respiratory accessory muscles. Anicteric sclerae. No jaundice. Dry mucous membranes. HEART: S1, S2, irregularly irregular. LUNGS: decreased breath sounds, No tripod positioning no wheezing ABDOMEN: Soft, nontender, nondistended. Positive bowel sounds. No rebound, guarding or hepatosplenomegaly. No carotid bruits noted. EXTREMITIES: Right arm is in a sling. Lower extremities have no lower extremity edema, clubbing or cyanosis. LABORATORY DATA, MICROBIOLOGY, IMAGING STUDIES: PLS SEE BELOW ASSESSMENT AND PLAN: This is an 83-year-old male with history of falls at home with a fracture of the right arm managed conservatively, presented to the emergency room with complaints of dizziness, found to have atrial fibrillation with rapid ventricular response (RVR) as well as worsening shortness of breath. He has past history significant for chronic obstructive pulmonary disease (COPD) on two liters nasal cannula with chronic hypoxic respiratory failure, type 2 diabetes, chronic kidney disease (CKD) stage III, dyslipidemia, hypertension, coronary artery disease (CAD), reflux, hemorrhoids, diverticulosis, colonic polyp, drainage of left thigh abscess, right humeral fracture repair, cholecystectomy and inguinal hernia repair. Atrial fibrillation with rapid ventricular rate,rate controlled on atenolol. ASA for AC due to risk of ICH with gait imbalance and h/o recurrent falls with right arm injury. CT head: no cerebellar CVA Chronic obstructive pulmonary disease (COPD) exacerbation. The patient is currently on prednisone, nebulizer treatments, Levaquin, and supplemental oxygen. Xopenex 0.63 and Spiriva to be continued. still with some DEGROOT, but not desaturating and at baseline o2 need of 2liters continuously Chronic hypoxic respiratory failure, on two liters of oxygen. Continue with goal saturations of 88% to 92%. Type 2 diabetes. Consistent-carbohydrate diet,decreased Levemir insulin due to glucose 77, insulin sliding scale, and hypoglycemic protocol. Recurrent falls. At risk for intracranial hemorrhage if the patient is placed on Eliquis or Xarelto. on low dose ASA for Afib CVA prophylaxis. pt and pt's aware of risk of ICH with stronger anticoagulants. Pain control with tramadol. Monitor for altered mental status changes. Right arm fracture. Managed conservatively. Orthopedic followup and physical therapy as outpatient. History of chronic kidney disease, stage III. Avoiding nephrotoxins, renally dosed all medications. encouraged oral fluid intake. negative pvr and bladder scan. renal us no hydronephrosis. back to baseline creatinine Low magnesium level.,resolved Supplemented with magnesium runs times two disposition: awaiting PT clearance. VS, I&O, 24H, Fishbone Vital Signs/I&O Vital Signs Date Time Temp Pulse Resp B/P (MAP) Pulse Ox O2 Delivery O2 Flow Rate FiO2 03/29/19 14:00 97.7 57 18 114/59 (77) 98 2.0 03/26/19 23:30 Nasal Cannula I&O- Last 24 Hours up to 6 AM 03/29/19 06:00 Intake Total 1366 ml Output Total 0 ml Balance 1366 ml Laboratory Data 24H LABS Laboratory Tests 2 03/28/19 16:45: Bedside Glucose (Misc Panel) 167H 03/28/19 20:33: Bedside Glucose (Misc Panel) 225H 03/29/19 06:13: Bedside Glucose (Misc Panel) 109 03/29/19 09:06: Nucleated Red Blood Cells % (auto) 0.0, Anion Gap 7L, Glomerular Filtration Rate > 60.0, Blood Urea Nitrogen 36H, Creatinine 1.23, Sodium Level 139, Potassium Level 4.0, Chloride Level 102, Carbon Dioxide Level 30, Calcium Level 8.9 03/29/19 11:20: Bedside Glucose (Misc Panel) 157H 03/29/19 12:23: Methicillin-Resist S.aureus DNA PCR NOT DETECTED CBC/BMP Laboratory Tests 03/29/19 09:06 Red Blood Count 3.85 L, Mean Corpuscular Volume 89.1, Mean Corpuscular Hemoglobin 28.6, Mean Corpuscular Hemoglobin Concent 32.1, Red Cell Distribution Width 14.1, Calcium Level 8.9 Microbiology Microbiology 03/26/19 Blood Culture - Preliminary, Resulted No Growth after 48 hours. All Specime... 03/26/19 Blood Culture - Preliminary, Resulted No Growth after 48 hours. All Specime... JESSICA NAIR MD Mar 29, 2019 15:24
[2019-03-29 18:00] VITALS: BP 115/60
[2019-03-29] MEDS ORDERED: traMADol 50 MG TAB PO PRN (18:00)
[2019-03-29] MEDS: traMADol ER 100MG TABLET (ULTRAM ER) PO SCH (21:19)
[2019-03-29] MEDS: LIDOCAINE 5% (LIDODERM) PATCH TD SCH (21:20)
[2019-03-29 22:00] VITALS: BP 118/61
[2019-03-30] MEDS: LevoFLOXacin 250 MG TABLET PO SCH (05:44)
[2019-03-30 06:00] VITALS: BP 119/68
[2019-03-30] MEDS: LEVEMIR (INSULIN DETEMIR) 1 UNITS/0.01ML SC SCH (07:40)
[2019-03-30] MEDS: LEVALBUTEROL 1.25 MG/0.5 ML CONCENTRATE NEB INH SCH ×3 (07:41→21:07)
[2019-03-30] MEDS: TIOTROPIUM INHALER/CAPSULE (SPIRIVA) INH SCH (07:41)
[2019-03-30 07:44] VITALS: BP 119/60
[2019-03-30] MEDS: PANTOPRAZOLE 40MG TAB (PROTONIX) PO SCH (08:44)
[2019-03-30] MEDS: ACETAMINOPHEN 650MG ER TAB (TYLENOL ARTHRITIS) PO SCH ×2 (08:44→20:20)
[2019-03-30] MEDS: ASPIRIN 81 MG ENTERIC TAB PO SCH (08:44)
[2019-03-30] MEDS: NYSTATIN 100,000 UNITS/GM TOPICAL PWD 15 GM TOP SCH (08:45)
[2019-03-30] MEDS: DULoxetine 30 MG CAP (CYMBALTA) PO SCH (08:45)
[2019-03-30] MEDS: atenoloL 50 MG TAB PO SCH ×2 (08:45→20:20)
[2019-03-30] MEDS: predniSONE 20 MG TAB PO SCH (08:45)
[2019-03-30] MEDS: **NOTE PATIENT COMMENT** MISC XX SCH (08:46)
[2019-03-30] MEDS: HumaLOG INSULIN (NovoLOG) PER UNIT SC SCH ×4 (09:08→19:57)
[2019-03-30 10:00] VITALS: BP 105/53
[2019-03-30] MEDS ORDERED: BISACODYL 10 MG SUPP PR PRN (11:15)
[2019-03-30] MEDS: MOM 30ML SUSPENSION UDC PO SCH (11:29)
--- NOTE | 2019-03-30 11:29 | IPNPDOC ---
Text Note Date of Service The patient was seen on 03/30/19. NOTE SUBJECTIVE: Sob is much improved, no cough or phlegm any more, no fever or chills, says his breathing is at baseline. No chest pain or palpitation. Says has not had a bowel movement in 3 or 4 days. OBJECTIVE: PHYSICAL EXAMINATION: VITAL SIGNS: PLS SEE BELOW GENERAL: alert and oriented to himself and place. no conversational dyspnea or use of respiratory accessory muscles. HEENT: Anicteric sclerae. No jaundice. Moist mucous membranes NECK: No JVD, No cartid bruit, no thyromegaly HEART: S1, S2, irregularly irregular. No rub murmur or gallop LUNGS: decreased breath sounds, some scattered wheezing on kike right back on deep expiration, left is clear, some basal crackles. ABDOMEN: Soft, nontender, nondistended. Positive bowel sounds. No rebound, guarding or hepatosplenomegaly. EXTREMITIES: Right arm is in a sling. Lower extremities have no lower extremity edema, clubbing or cyanosis. Skin: some scattered bruising in the upper extremities from venipunctures. skin is intack, warm and dry. NEURO: no focal neuro deficits. ASSESSMENT AND PLAN: This is an 83-year-old male with history of falls at home with a fracture of the right arm managed conservatively, presented to the emergency room with complaints of dizziness, found to have atrial fibrillation with rapid ventricular response (RVR) as well as worsening shortness of breath. He has past history significant for chronic obstructive pulmonary disease (COPD) on two liters nasal cannula with chronic hypoxic respiratory failure, type 2 diabetes, chronic kidney disease (CKD) stage III, dyslipidemia, hypertension, coronary artery disease (CAD), reflux, hemorrhoids, diverticulosis, colonic polyp, drainage of left thigh abscess, right humeral fracture repair, cholecystectomy and inguinal hernia repair. Atrial fibrillation with rapid ventricular rate, Now rate controlled on atenolol. ASA only due to risk of ICH with gait imbalance and h/o recurrent falls with right arm injury. CT head: no cerebellar CVA Chronic obstructive pulmonary disease (COPD) exacerbation. The patient is currently on prednisone, nebulizer treatments, Levaquin, and supplemental oxygen. Xopenex 0.63 and Spiriva to be continued. still with some DEGROOT, but not desaturating and at baseline o2 need of 2liters continuously Chronic hypoxic respiratory failure, on two liters of oxygen. Continue with goal saturations of 88% to 92%. Type 2 diabetes. Consistent-carbohydrate diet Levemir sliding scale lispro and hypoglycemic protocol. Recurrent falls. due to generalized deconditioning and gait instability, OA. PT and OT Pain control with tramadol. Right arm fracture. Managed conservatively. Orthopedic followup and physical therapy as outpatient. Chronic kidney disease, stage III. Avoiding nephrotoxins, renally dosed all medications. encouraged oral fluid intake. negative pvr and bladder scan. renal us no hydronephrosis. back to baseline creatinine Low magnesium level.,resolved Supplemented with magnesium runs times two Disposition: awaiting PT clearance. Possibly will need to go to Rehab. VS,Fishbone, I+O VS, Fishbone, I+O Vital Signs Date Time Temp Pulse Resp B/P (MAP) Pulse Ox O2 Delivery O2 Flow Rate FiO2 03/30/19 10:00 97.7 68 18 105/53 (70) 90 1.0 03/26/19 23:30 Nasal Cannula I&O- Last 24 Hours up to 6 AM 03/30/19 06:00 Intake Total 746 ml Output Total 850 ml Balance -104 ml BECK LOPES MD Mar 30, 2019 11:29
[2019-03-30] MEDS: SENOKOT S TAB PO SCH ×2 (11:30→20:20)
[2019-03-30] MEDS: ENOXAPARIN 30 MG/0.3 ML SYR (J1650) SC SCH (13:17)
[2019-03-30 14:00] VITALS: BP 105/54
[2019-03-30] MEDS: traMADol ER 100MG TABLET (ULTRAM ER) PO SCH (20:20)
[2019-03-30] MEDS: LIDOCAINE 5% (LIDODERM) PATCH TD SCH (20:21)
[2019-03-30 22:00] VITALS: BP 120/60
[2019-03-31] VITALS (7 sets, daily range): BP systolic 112–146; BP diastolic 54–86
[2019-03-31] MEDS: LevoFLOXacin 250 MG TABLET PO SCH (05:24)
[2019-03-31 06:11] LABS: BASO % 0.2 % (0.0-1.0); EOS # 0.1 10^3/uL (0.0-0.5); EOS % 0.9 % (0.0-3.0); HEMATOCRIT 35.9 % (42.0-52.0); HEMOGLOBIN 11.5 g/dl (13.5-17.5); LYMPH # 1.9 10^3/uL (1.5-5.0); LYMPH % 24.1 % (24.0-44.0); MEAN CORPUSCULAR HEMOGLOBIN 28.9 pg (27.0-33.0); MEAN CORPUSCULAR VOLUME 90.2 fl (80.0-96.0); MONO # 0.9 10^3/uL (0.0-0.8); MONO % 11.1 % (0.0-5.0); PLATELET COUNT, AUTOMATED 244 10^3/uL (150-450); RED BLOOD COUNT 3.98 10^6/uL (4.30-6.10)
[2019-03-31 06:36] LABS: BLOOD UREA NITROGEN 26 MG/DL (7-18); CALCIUM LEVEL 8.7 MG/DL (8.8-10.2); CARBON DIOXIDE LEVEL 30 MEQ/L (21-32); CHLORIDE LEVEL 103 MEQ/L (98-107); CREATININE FOR GFR 1.14 MG/DL (0.70-1.30); GLOMERULAR FILTRATION RATE > 60.0 (>35); GLUCOSE, FASTING 156 MG/DL (70-100); POTASSIUM SERUM 3.9 MEQ/L (3.5-5.1); SODIUM LEVEL 139 MEQ/L (136-145)
[2019-03-31] MEDS: TIOTROPIUM INHALER/CAPSULE (SPIRIVA) INH SCH (07:16)
[2019-03-31] MEDS: LEVALBUTEROL 1.25 MG/0.5 ML CONCENTRATE NEB INH SCH ×3 (07:16→18:16)
[2019-03-31] MEDS: HumaLOG INSULIN (NovoLOG) PER UNIT SC SCH ×4 (08:03→21:00)
[2019-03-31] MEDS: **NOTE PATIENT COMMENT** MISC XX SCH (09:00)
[2019-03-31] MEDS: ENOXAPARIN 30 MG/0.3 ML SYR (J1650) SC SCH (09:00)
[2019-03-31] MEDS: LEVEMIR (INSULIN DETEMIR) 1 UNITS/0.01ML SC SCH (09:00)
--- NOTE | 2019-03-31 10:05 | IPNPDOC ---
Text Note Date of Service The patient was seen on 03/31/19. NOTE SUBJECTIVE: Sob is much improved, denies any cough or phlegm , no fever or ch ills, says his breathing is at baseline. No chest pain or palpitation. Had 2 bowel movements yesterday after bowel regimen. OBJECTIVE: PHYSICAL EXAMINATION: VITAL SIGNS: PLS SEE BELOW GENERAL: alert and oriented to himself and place. no conversational dyspnea or use of respiratory accessory muscles. HEENT: Anicteric sclerae. No jaundice. Moist mucous membranes NECK: No JVD, No cartid bruit, no thyromegaly HEART: S1, S2, irregularly irregular. No rub murmur or gallop LUNGS: decreased breath sounds, bilateral basal coarse crackles. No ronchi or wheezing. ABDOMEN: Soft, nontender, nondistended. Positive bowel sounds. No rebound, guarding or hepatosplenomegaly. EXTREMITIES: Right arm is in a sling. Lower extremities have no lower extremity edema, clubbing or cyanosis. Skin: some scattered bruising in the upper extremities from venipunctures. skin is intack, warm and dry. NEURO: no focal neuro deficits. ASSESSMENT AND PLAN: This is an 83-year-old male with history of falls at home with a fracture of the right arm managed conservatively, presented to the emergency room with complaints of dizziness, found to have atrial fibrillation with rapid ventricular response (RVR) as well as worsening shortness of breath. He has past history significant for chronic obstructive pulmonary disease (COPD) on two liters nasal canula with chronic hypoxic respiratory failure, type 2 diabetes, chronic kidney disease (CKD) stage III, dyslipidemia, hypertension, coronary artery disease (CAD), reflux, hemorrhoids, diverticulosis, colonic polyp, drainage of left thigh abscess, right humeral fracture repair, cholecystectomy and inguinal hernia repair. Atrial fibrillation with rapid ventricular rate, Now rate controlled on atenolol. ASA only due to risk of ICH with gait imbalance and h/o recurrent falls with right arm injury. CT head: no cerebellar CVA Chronic obstructive pulmonary disease (COPD) exacerbation. The patient is currently on prednisone, nebulizer treatments, Levaquin, and supplemental oxygen. Xopenex 0.63 and Spiriva to be continued. still with some DEGROOT, but not desaturating and at baseline o2 need of 2liters continuously Chronic hypoxic respiratory failure, on two liters of oxygen. Continue with goal saturations of 88% to 92%. Type 2 diabetes. Consistent-carbohydrate diet Levemir sliding scale lispro and hypoglycemic protocol. Recurrent falls. due to generalized deconditioning and gait instability, OA. PT and OT Pain control with tramadol. Right arm fracture. Managed conservatively. Orthopedic followup and physical therapy as outpatient. Chronic kidney disease, stage III. Avoiding nephrotoxins, renally dosed all medications. encouraged oral fluid intake. negative pvr and bladder scan. renal us no hydronephrosis. back to baseline creatinine Low magnesium level.,resolved Supplemented with magnesium runs times two Disposition: To Rehab only as per PT. VS,Fishbone, I+O VS, Fishbone, I+O Laboratory Tests 03/31/19 05:27 Red Blood Count 3.98 L, Mean Corpuscular Volume 90.2, Mean Corpuscular H emoglobin 28.9, Mean Corpuscular Hemoglobin Concent 32.0, Red Cell Distribution Width 13.9, Neutrophils (%) (Auto) 62.0, Lymphocytes (%) (Auto) 24.1, Monocytes (%) (Auto) 11.1 H, Eosinophils (%) (Auto) 0.9, Basophils (%) (Auto) 0.2, Neutrophils # (Auto) 5.0, Lymphocytes # (Auto) 1.9, Monocytes # (Auto) 0.9 H, Eosinophils # (Auto) 0.1, Basophils # (Auto) 0.0, Calcium Level 8.7 L Vital Signs Date Time Temp Pulse Resp B/P (MAP) Pulse Ox O2 Delivery O2 Flow Rate FiO2 03/31/19 06:00 98.0 55 24 146/80 (102) 98 2.0 03/26/19 23:30 Nasal Cannula I&O- Last 24 Hours up to 6 AM 03/31/19 06:00 Intake Total 1292 ml Output Total 200 ml Balance 1092 ml BECK LOPES MD Mar 31, 2019 06:40
[2019-03-31] MEDS: MOM 30ML SUSPENSION UDC PO SCH (11:04)
[2019-03-31] MEDS: DULoxetine 30 MG CAP (CYMBALTA) PO SCH (11:05)
[2019-03-31] MEDS: SENOKOT S TAB PO SCH ×2 (11:05→21:31)
[2019-03-31] MEDS: predniSONE 10 MG TAB PO SCH (11:05)
[2019-03-31] MEDS: PANTOPRAZOLE 40MG TAB (PROTONIX) PO SCH (11:06)
[2019-03-31] MEDS: ACETAMINOPHEN 650MG ER TAB (TYLENOL ARTHRITIS) PO SCH ×2 (11:06→21:31)
[2019-03-31] MEDS: atenoloL 50 MG TAB PO SCH ×2 (11:06→21:36)
[2019-03-31] MEDS: NYSTATIN 100,000 UNITS/GM TOPICAL PWD 15 GM TOP SCH (11:09)
[2019-03-31] MEDS: ASPIRIN 81 MG ENTERIC TAB PO SCH (11:09)
[2019-03-31] MEDS: LIDOCAINE 5% (LIDODERM) PATCH TD SCH (21:32)
[2019-03-31] MEDS: traMADol ER 100MG TABLET (ULTRAM ER) PO SCH (22:10)
[2019-04-01] VITALS (8 sets, daily range): BP systolic 110–141; BP diastolic 59–86
[2019-04-01] MEDS: LevoFLOXacin 250 MG TABLET PO SCH (05:54)
[2019-04-01 06:40] LABS: BASO % 0.4 % (0.0-1.0); EOS # 0.1 10^3/uL (0.0-0.5); HEMOGLOBIN 11.6 g/dl (13.5-17.5); LYMPH # 1.9 10^3/uL (1.5-5.0); LYMPH % 19.2 % (24.0-44.0); MEAN CORPUSCULAR HEMOGLOBIN 29.7 pg (27.0-33.0); MEAN CORPUSCULAR HGB CONC 32.2 g/dl (32.0-36.5); MEAN CORPUSCULAR VOLUME 92.1 fl (80.0-96.0); MONO # 0.8 10^3/uL (0.0-0.8); MONO % 8.1 % (0.0-5.0); NEUTROPHILS # 6.7 10^3/uL (1.5-8.5); NEUTROPHILS % 69.2 % (36.0-66.0); PLATELET COUNT, AUTOMATED 246 10^3/uL (150-450); RED BLOOD COUNT 3.91 10^6/uL (4.30-6.10); WHITE BLOOD COUNT 9.7 10^3/uL (4.0-10.0)
[2019-04-01 07:03] LABS: BLOOD UREA NITROGEN 27 MG/DL (7-18); CALCIUM LEVEL 8.8 MG/DL (8.8-10.2); CARBON DIOXIDE LEVEL 30 MEQ/L (21-32); CHLORIDE LEVEL 102 MEQ/L (98-107); CREATININE FOR GFR 1.19 MG/DL (0.70-1.30); GLOMERULAR FILTRATION RATE > 60.0 (>35); GLUCOSE, FASTING 158 MG/DL (70-100); POTASSIUM SERUM 4.1 MEQ/L (3.5-5.1); SODIUM LEVEL 138 MEQ/L (136-145)
[2019-04-01] MEDS: LEVALBUTEROL 1.25 MG/0.5 ML CONCENTRATE NEB INH SCH ×3 (07:15→20:26)
[2019-04-01] MEDS: TIOTROPIUM INHALER/CAPSULE (SPIRIVA) INH SCH (07:15)
[2019-04-01] MEDS: HumaLOG INSULIN (NovoLOG) PER UNIT SC SCH ×4 (07:30→21:00)
[2019-04-01] MEDS: LEVEMIR (INSULIN DETEMIR) 1 UNITS/0.01ML SC SCH (09:00)
[2019-04-01] MEDS: atenoloL 50 MG TAB PO SCH ×2 (09:00→20:09)
[2019-04-01] MEDS: DULoxetine 30 MG CAP (CYMBALTA) PO SCH (09:26)
[2019-04-01] MEDS: MOM 30ML SUSPENSION UDC PO SCH (09:27)
[2019-04-01] MEDS: SENOKOT S TAB PO SCH ×2 (09:27→20:09)
[2019-04-01] MEDS: ASPIRIN 81 MG ENTERIC TAB PO SCH (09:27)
[2019-04-01] MEDS: predniSONE 10 MG TAB PO SCH (09:28)
[2019-04-01] MEDS: PANTOPRAZOLE 40MG TAB (PROTONIX) PO SCH (09:28)
[2019-04-01] MEDS: ACETAMINOPHEN 650MG ER TAB (TYLENOL ARTHRITIS) PO SCH ×2 (09:28→20:06)
[2019-04-01] MEDS: ENOXAPARIN 30 MG/0.3 ML SYR (J1650) SC SCH (09:29)
[2019-04-01] MEDS: NYSTATIN 100,000 UNITS/GM TOPICAL PWD 15 GM TOP SCH (09:30)
[2019-04-01] MEDS: **NOTE PATIENT COMMENT** MISC XX SCH (09:33)
--- NOTE | 2019-04-01 14:39 | IPNPDOC ---
Text Note Date of Service The patient was seen on 04/01/19. NOTE SUBJECTIVE: Sob has resolved denies any cough or phlegm , no fever or chills, says his breathing is at baseline. No chest pain or palpitation. Had 2 bowel movements yesterday after bowel regimen. OBJECTIVE: PHYSICAL EXAMINATION: VITAL SIGNS: PLS SEE BELOW GENERAL: alert and oriented to himself and place. no conversational dyspnea or use of respiratory accessory muscles. HEENT: Anicteric sclerae. No jaundice. Moist mucous membranes NECK: No JVD, No cartid bruit, no thyromegaly HEART: S1, S2, irregularly irregular. No rub murmur or gallop LUNGS: decreased breath sounds, bilateral basal coarse crackles. No ronchi or wheezing. ABDOMEN: Soft, nontender, nondistended. Positive bowel sounds. No rebound, guarding or hepatosplenomegaly. EXTREMITIES: Right arm is in a sling. Lower extremities have no lower extremity edema, clubbing or cyanosis. Skin: some scattered bruising in the upper extremities from venipunctures. skin is intack, warm and dry. NEURO: no focal neuro deficits. ASSESSMENT AND PLAN: This is an 83-year-old male with history of falls at home with a fracture of the right arm managed conservatively, presented to the emergency room with complaints of dizziness, found to have atrial fibrillation with rapid ventricular response (RVR) as well as worsening shortness of breath. He has past history significant for chronic obstructive pulmonary disease (COPD) on two liters nasal canula with chronic hypoxic respiratory failure, type 2 diabetes, chronic kidney disease (CKD) stage III, dyslipidemia, hypertension, coronary artery disease (CAD), reflux, hemorrhoids, diverticulosis, colonic polyp, drainage of left thigh abscess, right humeral fracture repair, cholecystectomy and inguinal hernia repair. Atrial fibrillation with rapid ventricular rate, Now rate controlled on atenolol. ASA only due to risk of ICH with gait imbalance and h/o recurrent falls with right arm injury. CT head: no cerebellar CVA Chronic obstructive pulmonary disease (COPD) exacerbation. The patient is currently on prednisone, nebulizer treatments, Levaquin, and supplemental oxygen. Xopenex 0.63 and Spiriva to be continued. still with some DEGROOT, but not desaturating and at baseline o2 need of 2liters continuously Chronic hypoxic respiratory failure, on two liters of oxygen. Continue with goal saturations of 88% to 92%. Type 2 diabetes. Consistent-carbohydrate diet Levemir sliding scale lispro and hypoglycemic protocol. Recurrent falls. due to generalized deconditioning and gait instability, OA. PT and OT Pain control with tramadol. Right arm fracture. Managed conservatively. Orthopedic followup and physical therapy as outpatient. Chronic kidney disease, stage III. Avoiding nephrotoxins, renally dosed all medications. encouraged oral fluid intake. negative pvr and bladder scan. renal us no hydronephrosis. back to baseline creatinine Low magnesium level.,resolved Supplemented with magnesium runs times two Disposition: Home with services vs rehab VS,Sonali, I+O VS, Sonali, I+O Laboratory Tests 04/01/19 06:19 Red Blood Count 3.91 L, Mean Corpuscular Volume 92.1, Mean Corpuscular Hem oglobin 29.7, Mean Corpuscular Hemoglobin Concent 32.2, Red Cell Distribution Width 14.2, Neutrophils (%) (Auto) 69.2 H, Lymphocytes (%) (Auto) 19.2 L, Monocytes (%) (Auto) 8.1 H, Eosinophils (%) (Auto) 1.0, Basophils (%) (Auto) 0.4, Neutrophils # (Auto) 6.7, Lymphocytes # (Auto) 1.9, Monocytes # (Auto) 0.8, Eosinophils # (Auto) 0.1, Basophils # (Auto) 0.0, Calcium Level 8.8 Vital Signs Date Time Temp Pulse Resp B/P (MAP) Pulse Ox O2 Delivery O2 Flow Rate FiO2 04/01/19 14:00 97.6 60 22 113/81 (92) 96 04/01/19 08:34 2.0 03/26/19 23:30 Nasal Cannula I&O- Last 24 Hours up to 6 AM 04/01/19 06:00 Intake Total 990 ml Output Total 0 ml Balance 990 ml BECK LOPES MD Apr 01, 2019 14:39
[2019-04-01] MEDS: LIDOCAINE 5% (LIDODERM) PATCH TD SCH (20:06)
[2019-04-01] MEDS: traMADol ER 100MG TABLET (ULTRAM ER) PO SCH (20:06)
[2019-04-02] MEDS: LevoFLOXacin 250 MG TABLET PO SCH (05:42)
[2019-04-02 06:00] VITALS: BP 128/67
[2019-04-02] MEDS: LEVALBUTEROL 1.25 MG/0.5 ML CONCENTRATE NEB INH SCH ×2 (07:10→13:40)
[2019-04-02] MEDS: TIOTROPIUM INHALER/CAPSULE (SPIRIVA) INH SCH (07:10)
[2019-04-02 07:12] LABS: BASO # 0.1 10^3/uL (0.0-0.2); BASO % 0.5 % (0.0-1.0); EOS # 0.2 10^3/uL (0.0-0.5); EOS % 1.5 % (0.0-3.0); HEMOGLOBIN 11.9 g/dl (13.5-17.5); LYMPH # 2.1 10^3/uL (1.5-5.0); LYMPH % 18.7 % (24.0-44.0); MEAN CORPUSCULAR HEMOGLOBIN 29.5 pg (27.0-33.0); MEAN CORPUSCULAR HGB CONC 32.2 g/dl (32.0-36.5); MEAN CORPUSCULAR VOLUME 91.6 fl (80.0-96.0); MONO # 0.8 10^3/uL (0.0-0.8); MONO % 6.8 % (0.0-5.0); NEUTROPHILS # 7.9 10^3/uL (1.5-8.5); PLATELET COUNT, AUTOMATED 255 10^3/uL (150-450); RED BLOOD COUNT 4.04 10^6/uL (4.30-6.10); WHITE BLOOD COUNT 11.4 10^3/uL (4.0-10.0)
[2019-04-02 07:25] LABS: BLOOD UREA NITROGEN 25 MG/DL (7-18); CALCIUM LEVEL 8.5 MG/DL (8.8-10.2); CARBON DIOXIDE LEVEL 28 MEQ/L (21-32); CHLORIDE LEVEL 104 MEQ/L (98-107); CREATININE FOR GFR 1.09 MG/DL (0.70-1.30); GLOMERULAR FILTRATION RATE > 60.0 (>35); GLUCOSE, FASTING 127 MG/DL (70-100); POTASSIUM SERUM 4.1 MEQ/L (3.5-5.1); SODIUM LEVEL 140 MEQ/L (136-145)
[2019-04-02] MEDS: LEVEMIR (INSULIN DETEMIR) 1 UNITS/0.01ML SC SCH (07:51)
[2019-04-02 08:08] VITALS: BP 138/72
[2019-04-02] MEDS: HumaLOG INSULIN (NovoLOG) PER UNIT SC SCH ×2 (08:08→13:22)
[2019-04-02] MEDS: atenoloL 50 MG TAB PO SCH (08:08)
[2019-04-02] MEDS: MOM 30ML SUSPENSION UDC PO SCH (08:09)
[2019-04-02] MEDS: SENOKOT S TAB PO SCH (08:09)
[2019-04-02] MEDS: ASPIRIN 81 MG ENTERIC TAB PO SCH (08:09)
[2019-04-02] MEDS: PANTOPRAZOLE 40MG TAB (PROTONIX) PO SCH (08:09)
[2019-04-02] MEDS: DULoxetine 30 MG CAP (CYMBALTA) PO SCH (08:09)
[2019-04-02] MEDS: ACETAMINOPHEN 650MG ER TAB (TYLENOL ARTHRITIS) PO SCH (08:09)
[2019-04-02] MEDS: NYSTATIN 100,000 UNITS/GM TOPICAL PWD 15 GM TOP SCH (08:10)
[2019-04-02] MEDS: ENOXAPARIN 30 MG/0.3 ML SYR (J1650) SC SCH (08:10)
[2019-04-02] MEDS: **NOTE PATIENT COMMENT** MISC XX SCH (08:10)
[2019-04-02] MEDS ORDERED: predniSONE 10 MG TAB PO SCH (09:00)
[2019-04-02] MEDS ORDERED: PRED10TA2 PO (12:57)
[2019-04-02] MEDS ORDERED: ATEN50TA2 PO (12:57)
[2019-04-02] MEDS ORDERED: ASPI81TAEC PO (12:57)
[2019-04-02] MEDS ORDERED: NYAM10003 TOP (12:57)
[2019-04-02] MEDS ORDERED: TRAM50TA2 PO (13:00)
--- NOTE | 2019-04-02 19:15 | DS.PDOC ---
Discharge Summary General Date of Admission Mar 26, 2019 at 22:13 Date of Discharge 04/02/2019 Discharge Summary PROCEDURES PERFORMED DURING STAY: [None]. DISCHARGE DIAGNOSES: A Fib with RVR COPD exacerbation Chronic respiratory failure with hypoxia Recurrent Falls Right arm fracture Diabetes CKD stage 3 Dyslipidemia Hypertension CAD Intertriginous Candidiasis GERD Diverticulosis COMPLICATIONS/CHIEF COMPLAINT: Atrial Fibrillation With Rvr. HISTORY OF PRESENT ILLNESS: Please see history and physical HOSPITAL COURSE: This is an 83-year-old male with history of falls at home with a fracture of the right arm managed conservatively, presented to the emergency room with complaints of dizziness, found to have atrial fibrillation with rapid ventricular response (RVR) as well as worsening shortness of breath. He has past history significant for chronic obstructive pulmonary disease (COPD) on two liters nasal canula with chronic hypoxic respiratory failure, type 2 diabetes, chronic kidney disease (CKD) stage III, dyslipidemia, hypertension, coronary artery disease (CAD), reflux, hemorrhoids, diverticulosis, colonic polyp, drainage of left thigh abscess, right humeral fracture repair, cholecystectomy and inguinal hernia repair. Atrial fibrillation with rapid ventricular rate, Now rate controlled on atenolol. ASA only due to risk of ICH with gait imbalance and h/o recurrent falls with ri ght arm injury. CT head: no cerebellar CVA Chronic obstructive pulmonary disease (COPD) exacerbation. The patient is continue Advair, spiriva , duonebs currently on prednisone taper. Chronic hypoxic respiratory failure, on two liters of oxygen. Continue with goal saturations of 88% to 92%. Type 2 diabetes. Consistent-carbohydrate diet Continue Levemir Recurrent falls. due to generalized deconditioning and gait instability, OA. Follow PT and OT recommendations Pain control with tramadol. Right arm fracture. Managed conservatively. Orthopedic followup and physical therapy as outpatient. Chronic kidney disease, stage III. Creatinine better than baseline probably dilutional as he may be a little fluid overloaded. negative pvr and bladder scan. renal us no hydronephrosis. Low magnesium level resolved Supplemented with magnesium Intertriginous candidiasis continue nystatin powder. DISCHARGE MEDICATIONS: Please see below. ALLERGIES: Please see below. PHYSICAL EXAMINATION ON DISCHARGE: VITAL SIGNS: Please see below. GENERAL: alert and oriented to himself and place. no conversational dyspnea or use of respiratory accessory muscles. HEENT: Anicteric sclerae. No jaundice. Moist mucous membranes NECK: No JVD, No cartid bruit, no thyromegaly HEART: S1, S2, irregularly irregular. No rub murmur or gallop LUNGS: decreased breath sounds, bilateral basal coarse crackles. No ronchi or wheezing. ABDOMEN: Soft, nontender, nondistended. Positive bowel sounds. No rebound, guarding or hepatosplenomegaly. EXTREMITIES: Right arm is in a sling. Lower extremities have no lower extremity edema, clubbing or cyanosis. SKIN: some scattered bruising in the upper extremities from venipunctures. skin is intack, warm and dry. NEURO: no focal neuro deficits. LABORATORY DATA: Please see below. ACTIVITY: [As tolerated]. DIET: As tolerated DISPOSITION: 01 Home, Self-Care. DISCHARGE INSTRUCTIONS: Follow up with PMD in 1 week Follow up with Orthopedics DISCHARGE CONDITION: [Stable]. TIME SPENT ON DISCHARGE: 35 minutes. Vital Signs/I&Os Vital Signs Date Time Temp Pulse Resp B/P (MAP) Pulse Ox O2 Delivery O2 Flow Rate FiO2 04/02/19 09:00 2.0 04/02/19 08:08 77 138/72 04/02/19 06:00 97.2 20 96 I&O- Last 24 Hours up to 6 AM 04/02/19 06:00 Intake Total 1396 ml Output Total 0 ml Balance 1396 ml Laboratory Data Labs 24H Laboratory Tests 2 04/01/19 22:08: Bedside Glucose (Misc Panel) 212H 04/02/19 06:35: Immature Granulocyte % (Auto) 3.5H, White Blood Count 11.4H, Red Blood Count 4.04L, Hemoglobin 11.9L, Hematocrit 37.0L, Mean Corpuscular Volume 91.6, Mean Corpuscular Hemoglobin 29.5, Mean Corpuscular Hemoglobin Concent 32.2, Red Cell Distribution Width 14.3, Platelet Count 255, Neutrophils (%) (Auto) 69.0H, Lymphocytes (%) (Auto) 18.7L, Monocytes (%) (Auto) 6.8H, Eosinophils (%) (Auto) 1.5, Basophils (%) (Auto) 0.5, Neutrophils # (Auto) 7.9, Lymphocytes # (Auto) 2.1, Monocytes # (Auto) 0.8, Eosinophils # (Auto) 0.2, Basophils # (Auto) 0.1, Nucleated Red Blood Cells % (auto) 0.0, Anion Gap 8, Glomerular Filtration Rate > 60.0, Blood Urea Nitrogen 25H, Creatinine 1.09, Sodium Level 140, Potassium Level 4.1, Chloride Level 104, Carbon Dioxide Level 28, Calcium Level 8.5L 04/02/19 12:03: Bedside Glucose (Misc Panel) 146H CBC/BMP Laboratory Tests 04/02/19 06:35 Red Blood Count 4.04 L, Mean Corpuscular Volume 91.6, Mean Corpuscular Hemoglobin 29.5, Mean Corpuscular Hemoglobin Concent 32.2, Red Cell Distribution Width 14.3, Neutrophils (%) (Auto) 69.0 H, Lymphocytes (%) (Auto) 18.7 L, Monocytes (%) (Auto) 6.8 H, Eosinophils (%) (Auto) 1.5, Basophils (%) (Auto) 0.5, Neutrophils # (Auto) 7.9, Lymphocytes # (Auto) 2.1, Monocytes # (Auto) 0.8, Eosinophils # (Auto) 0.2, Basophils # (Auto) 0.1, Calcium Level 8.5 L FSBS Laboratory Tests Test 04/01/19 22:08 04/02/19 12:03 Range/Units Bedside Glucose (Misc Panel) 212 146 83-110 MG/DL Microbiology Microbiology 03/26/19 Blood Culture - Final, Complete NO GROWTH AFTER 5 DAYS 03/26/19 Blood Culture - Final, Complete NO GROWTH AFTER 5 DAYS Discharge Medications Scheduled Aspirin (Aspirin EC) 81 Mg Tablet.dr, 81 MG PO DAILY Atenolol (Atenolol) 50 Mg Tablet, 50 MG PO BID Duloxetine Hcl (Duloxetine HCl) 60 Mg Cap, 60 MG PO DAILY, (Reported) Ergocalciferol (Vitamin D2) (Vitamin D2) 50,000 Unit Capsule, 50,000 UNIT PO 1XWK, (Reported) TAKES ON FRIDAY Ferrous Sulfate (Ferrous Sulfate) 325 Mg Tab, 325 MG PO DAILY, (Reported) Insulin Detemir (Levemir Flextouch) 100 Unit/Ml Inj, 26 UNIT SC DAILY, (Reported) Ipratropium/Albuterol Sulfate (Iprat-Albut 0.5-3(2.5) mg/3 ml) 1 Lai Lia, 1 INH INH Q4H, (Reported) Nystatin (Nyamyc) 15 Gm Powder, 0 DOSE TOP DAILY Omeprazole (Omeprazole) 20 Mg Cap, 20 MG PO DAILY, (Reported) Prednisone (Prednisone) 10 Mg Tablet, 10 MG PO TAPER 2 tabs daily x 3 days, then 1 tab daily x 3 days and stop Salmeterol/Fluticasone (Advair 250-50 Diskus) 14 Puff/Inhaler Aerp, 1 PUFF INH BID, (Reported) Tiotropium [place] (Spiriva) 18 Mcg Cap, 1 INH INH DAILY, (Reported) Scheduled PRN Tramadol HCl (Tramadol HCl) 50 Mg Tablet, 50 MG PO TIDP PRN for pain Allergies Coded Allergies: No Known Allergies (Verified , 03/06/04) BECK LOPES MD Apr 02, 2019 19:15
== END 2019-04-02 14:41 | disposition home health service (06) | DRG 309 ==
LOC: M ED 17:05 → M ED INP 22:13 → EEVIPCON 22:13 → M PCU 23:50 → M MSPAV 03-27 22:13
PROVIDERS: ADMIT Internal Medicine; ATTEND Internal Medicine Nephrology
DX: I48.91 Unspecified atrial fibrillation (principal); J96.11 Chronic respiratory failure with hypoxia; J44.0 Chronic obstructive pulmonary disease with (acute) lower respiratory infection; J44.1 Chronic obstructive pulmonary disease with (acute) exacerbation; E83.42 Hypomagnesemia; E11.22 Type 2 diabetes mellitus with diabetic chronic kidney disease; N18.3 Chronic kidney disease, stage 3 (moderate); E78.5 Hyperlipidemia, unspecified; E66.3 Overweight; R29.6 Repeated falls; B37.2 Candidiasis of skin and nail; I12.9 Hypertensive chronic kidney disease with stage 1 through stage 4 chronic kidney disease, or unspecified chronic kidney disease; I25.10 Atherosclerotic heart disease of native coronary artery without angina pectoris; K21.9 Gastro-esophageal reflux disease without esophagitis; K64.9 Unspecified hemorrhoids; K57.90 Diverticulosis of intestine, part unspecified, without perforation or abscess without bleeding; Z99.81 Dependence on supplemental oxygen; Z86.010 Personal history of colon polyps; Z90.49 Acquired absence of other specified parts of digestive tract; Z87.891 Personal history of nicotine dependence; Z79.4 Long term (current) use of insulin; Z79.899 Other long term (current) drug therapy

== ENCOUNTER 2019-09-24 19:09 | Inpatient (IN) | payer MEDICARE, OTHER ==
[~2019-09-24] VITALS: Ht 177.8 cm; Wt 80.6 kg
[~2019-09-24 19:09] MED LIST changes: +ASPI81TAEC PO; +ATEN50TA2 PO; +NYAM10003 TOP; +PRED10TA2 PO; +TRAM50TA2 PO; +VITA50005 PO
[2019-09-24] MEDS ORDERED: FENO145T7 PO (19:23)
[2019-09-24] MEDS ORDERED: AMLO10TA5 PO (19:23)
[2019-09-24 19:56] LABS: BASO # 0.1 10^3/uL (0.0-0.2); BASO % 0.5 % (0.0-1.0); EOS # 0.2 10^3/uL (0.0-0.5); EOS % 1.1 % (0.0-3.0); HEMATOCRIT 50.8 % (42.0-52.0); LYMPH # 1.4 10^3/uL (1.5-5.0); LYMPH % 9.1 % (24.0-44.0); MEAN CORPUSCULAR HEMOGLOBIN 28.1 pg (27.0-33.0); MEAN CORPUSCULAR HGB CONC 31.5 g/dl (32.0-36.5); MEAN CORPUSCULAR VOLUME 89.3 fl (80.0-96.0); MONO # 0.6 10^3/uL (0.0-0.8); MONO % 3.9 % (0.0-5.0); NEUTROPHILS # 12.9 10^3/uL (1.5-8.5); NEUTROPHILS % 84.7 % (36.0-66.0); PLATELET COUNT, AUTOMATED 275 10^3/uL (150-450); RED BLOOD COUNT 5.69 10^6/uL (4.30-6.10); WHITE BLOOD COUNT 15.2 10^3/uL (4.0-10.0)
--- NOTE | 2019-09-24 20:06 | REP ---
Portable chest x-ray: Single view. History: Dyspnea and cough. Comparison chest x-ray: March 28, 2019. Findings: Monitoring electrodes are seen overlying the chest. There is old post-traumatic deformity in the proximal humerus on the right. No other significant bony abnormality is seen. The heart is not enlarged. There is a pleuroparenchymal opacity in the right upper perihilar region which is unchanged from prior radiographs consistent with scarring. This is seen on CT study from March 26, 2019. No acute infiltrate is seen. Pleural angles are sharp. No infiltrate is seen. Impression: Pleuroparenchymal scarring right upper perihilar region unchanged. Otherwise no acute disease. Electronically Signed by Fabián Jameson MD 09/25/2019 08:12 A
[2019-09-24 20:30] LABS: INFLUENZA A AMPLIFICATION NEGATIVE (NEGATIVE); INFLUENZA B AMPLIFICATION NEGATIVE (NEGATIVE)
[2019-09-24 20:31] LABS: BLOOD UREA NITROGEN 17 MG/DL (7-18); CARBON DIOXIDE LEVEL 28 MEQ/L (21-32); CHLORIDE LEVEL 103 MEQ/L (98-107); CK-MB VALUE MASS < 1.0 NG/ML (<3.6); CPK CREATINE PHOSPHOKINASE 38 U/L (39-308); CREATININE FOR GFR 1.31 MG/DL (0.70-1.30); GLOMERULAR FILTRATION RATE 55.8 (>35); GLUCOSE, FASTING 184 MG/DL (70-100); MB/CK RELATIVE INDEX 2.63 (< OR =4); NT-PRO BNP 696 PG/ML (<450); POTASSIUM SERUM 4.2 MEQ/L (3.5-5.1); SODIUM LEVEL 139 MEQ/L (136-145); TROPONIN I 0.02 NG/ML (< 0.10)
[2019-09-24] MEDS ORDERED: LEVEMIR (INSULIN DETEMIR) 1 UNITS/0.01ML SC SCH (21:00)
[2019-09-24] MEDS ORDERED: DIGOXIN INJ 0.5 MG/2 ML AMP (J1160) IV ONE (22:00)
[2019-09-24] MEDS ORDERED: NS 500 ML IV ONE (22:45)
[2019-09-24] MEDS ORDERED: cefTRIAXone SOD 1 GM in D5W MINI-BAG PLUS 50 ML IV ONE (23:00)
[2019-09-24] MEDS ORDERED: VITA500079 PO (23:26)
[2019-09-24] MEDS ORDERED: VITA50005 PO (23:29)
--- NOTE | 2019-09-24 23:35 | IPNPDOC ---
Text Note Date of Service The patient was seen on 09/24/19. NOTE Time of service 11:45 PM Mr. English is an 83-year-old male with a past medical history of IDDM (A1C 7.5%), COPD, CKD 3 & dyslipidemia who is admitted for management of sepsis 2/2 UTI, acute COPD and rapid afib. PE: NC in place/ using accessory muscles / pursed lip breathing /using acessory muscles / HR tachy and irregular He was last admitted Sept for rapid A fib and discharged with ASA. 1. Sepsis possibly 2/2 UTI- sepsis order set / abx / IVF/ f/u lactic 2. Rapid Afib - He was last admitted Sept for rapid A fib and discharged with ASA. His echo was negative for mitral valvulopathy. Since he is not rate controlled despite 2 doses of cardizem and digoxin we will start the Cardizem drip / due to CHADSVASc of 5 will start geriatric dosing of apixaban 2.5mg BID / trend trops 3. Acute COPD COPD order set / f/u respiratory penal 4. Bed Bugs contact precautions/ Rest per Dr. Bravo's note VS,Fishbone, I+O VS, Gtbone, I+O Laboratory Tests 09/24/19 19:30 Vital Signs Date Time Temp Pulse Resp B/P (MAP) Pulse Ox O2 Delivery O2 Flow Rate FiO2 09/24/19 22:26 152 09/24/19 21:50 97.4 22 133/82 (99) 94 Nasal Cannula 2.0 YVETTE SHEIKH MD Sep 24, 2019 23:35
[2019-09-25] VITALS (17 sets, daily range): BP systolic 114–171; BP diastolic 69–94
[2019-09-25] MEDS ORDERED: methylPREDNISolone INJ 125 MG/2 ML VIAL (J2930) IV STA (00:12)
[2019-09-25] MEDS ORDERED: ACETAMINOPHEN TAB 650MG DOSE (2X325MG) PO PRN (00:15)
[2019-09-25] MEDS ORDERED: GLUCAGON FOR INJ 1 MG VIAL (J1610) SC PRN (00:15)
[2019-09-25] MEDS ORDERED: MAALOX 30 ML SUSP *UDC PO PRN (00:15)
[2019-09-25] MEDS ORDERED: DEXTROSE 50% 50 ML SYRINGE IV PRN (00:15)
[2019-09-25] MEDS ORDERED: GLUCOSE 4 GM CHEW TABLET PO PRN (00:15)
[2019-09-25] MEDS ORDERED: MOM 30ML SUSPENSION UDC PO PRN (00:15)
[2019-09-25] MEDS ORDERED: ALBUTEROL SULFATE 2.5 MG/0.5 ML INH NEB SOLN NEB PRN (00:15)
[2019-09-25] MEDS ORDERED: VANCOMYCIN HCL 1,000 MG, VIAL MATE ADAPTER 1 EACH in D5W 250 ML IV ONE (01:00)
[2019-09-25] MEDS ORDERED: diltiaZEM 125 MG in NS 100 ML IV SCH ×3 (01:00)
--- NOTE | 2019-09-25 02:09 | HPEPDOC ---
[facility] Medical History & Physical Date of Admission Sep 24, 2019 Date of Service: Sep 24, 2019 Attending Physician: YVETTE SHEIKH MD History and Physical CHIEF COMPLAINT: Weakness, dysuria HISTORY OF PRESENT ILLNESS: Patient is an 84-year-old male who presents to the emergency department with a 3-4 weeks history of worsening shortness of breath. Patient has also noticed worsening dysuria over the last few days. Patient says he feels weak and does not really get around that much his house. Patient says feeling slightly ill. Patient also has a wound over his left hip that his has been taking care of for him. Patient reports that he has been coughing and occasionally will bring up some white phlegm. Patient hasn't noticed any blood in his urine. Patient feels weak but has not fallen but came in because of problems that he's been having. REVIEW OF SYSTEMS: General: Patient denies fevers, chills, night sweats, unintentional weight loss HEENT: Patient denies headaches, changes in vision, sore throat. Cardiovascular: Patient denies chest pain, chest pressure, or palpitations Respiratory: Patient endorses shortness of breath and cough as above GI: Patient denies abdominal pain, nausea, vomiting, diarrhea : Patient denies pain or difficulty with urination Neurological: Patient denies numbness or tingling in extremities Extremities: Patient denies swelling or pain in extremities Skin: Patient has a wound on his left hip as above Hematologic: Patient denies any easy bruising. Lymphatic: Patient denies any lumps in his neck, axilla, or groin. PAST MEDICAL HISTORY: 1. COPD. 2. Diabetes mellitus. 3. chronic kidney disease stage III. 4. Dyslipidemia 5. Hypertension 6. Coronary artery disease 7. GERD 8. Hemorrhoids 9. Diverticulosis PAST SURGICAL HISTORY: 1. Incision and drainage of the wound was left hip. 2. Right humeral fracture. 3. Cholecystectomy. 4. Hernia repair SOCIAL HISTORY: Patient lives at home with his and their daughter. Patient used to smoke cigarettes but stopped greater than 10 years ago. Patient denies daily alcohol or drug use. 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 FAMILY HISTORY: Family history of coronary artery disease and diabetes mellitus ALLERGIES: Please see below. HOME MEDICATIONS: Please see below. PHYSICAL EXAMINATION: VITAL SIGNS: Temperature 97.6, pulse 132, respiratory rate 20, blood pressure 165/92, pulse oximetry 93% on room air. General: Alert and oriented male patient who was laying in bed when I walked in the room. Patient does not appear to be in any acute distress. HEENT: Normocephalic, atraumatic, moist mucous membranes, posterior pharynx was nonerythematous Neck: No lymphadenopathy, thyromegaly, or carotid bruits. Cardiac: Regular rate and rhythm, no murmurs, normal S1, normal S2 Pulm: Diminished breath sounds with scattered rhonchi and wheezing. Abd: Soft, nondistended, mild tenderness to the suprapubic region. Ext: No edema bilateral lower extremities Neuro: No gross neurological deficits. Patient is of the move his extremities on command. Skin: Patient had a approximately 3 cm x 2 cm wound on the left hip that appear to have a tract running deep. There was some purulent material draining from the wound. Patient also has what appear to be insect bites on the patient's arms. LABORATORY DATA: Immature Granulocyte % (Auto) 0.7, Neutrophils (%) (Auto) 84.7H, Lymphocytes (%) (Auto) 9.1L, Monocytes (%) (Auto) 3.9, Eosinophils (%) (Auto) 1.1, Basophils (%) (Auto) 0.5, Neutrophils # (Auto) 12.9H, Lymphocytes # (Auto) 1.4L, Monocytes # (Auto) 0.6, Eosinophils # (Auto) 0.2, Basophils # (Auto) 0.1, Nucleated Red Blood Cells % (auto) 0.0, Anion Gap 8, Glomerular Filtration Rate 55.8, Calcium Level 9.0, Total Creatine Kinase 38L, Creatine Kinase MB < 1.0, Creatine Kinase MB Relative Index 2.63, Troponin I 0.02, SP-Knd-I-Type Natriuretic Peptide 696H, Thyroid Stimulating Hormone (TSH) 4.130H, Influenza Type A (RT-PCR) NEGATIVE, Influenza Type B (RT-PCR) NEGATIVE Urine Color YELLOW, Urine Appearance TURBIDH, Urine pH 5.0, Urine Specific [place] 1.019, Urine Protein 2+H, Urine Glucose (UA) NEGATIVE, Urine Ketones NEGATIVE, Urine Blood 3+H, Urine Nitrite NEGATIVE, Urine Bilirubin NEGATIVE, Urine Urobilinogen 0.2, Urine Leukocyte Esterase 2+H, Urine WBC (Auto) TNTCH, Urine RBC (Auto) 42H, Urine Hyaline Casts (Auto) 0, Urine Bacteria (Auto) 3+H, Urine Squamous Epithelial Cells 1, Urine Amorphous Sediment SMALLH, Urine Sperm (Auto) IMAGING: A chest x-ray performed was reported to have pleural parenchymal scarring in the right upper perihilar region which is unchanged. Otherwise no acute disease MICROBIOLOGY: 09/24/19 Urine Culture, Received Pending 09/24/19 Blood Culture, Received Pending 09/24/19 Blood Culture, Received Pending ASSESSMENT: Patient is an 84-year-old male who presented to the hospital with shortness of breath, dysuria, and weakness was also found to be intermittent fibrillation with rapid ventricular rate. Patient appears to have a urinary tract infection which is contributing to the patient's atrial fibrillation with RVR. PLAN: 1. Atrial fibrillation with rapid ventricular rate. Patient has chronic atrial fibrillation but is not on any anticoagulation for an unknown reason. Patient received 2 loading doses of diltiazem and digoxin which did not slow his heart rate down completely. Patient will be placed on a Cardizem drip in the intensive care unit to be titrated to bring his heart rate down. Patient was started on el iquis for anticoagulation. Patient's atrial fibrillation with RVR is most likely being caused by sepsis secondary to urinary tract infection and possible soft tissue infection. 2. Urinary tract infection. Patient's urine analysis showed signs of infection. Patient also has dysuria. Patient is receiving IV ceftriaxone for treatment of his infection until cultures come back. 3. Wound. Patient is a wound on the left hip. We will do wound care for now with a foam dressing and wound cleanser. We have also sent cultures for the wound. Patient does have a history of MRSA in wounds in the past. Patient will receive vancomycin until cultures come back. Blood cultures are also pending. 4. Possible sepsis with source of infection being urinary tract infection and possibly also wound infection. Patient was tachycardic with atrial fibrillation with rapid ventricular rate. Patient was also tachypneic but was not febrile nor was he hypotensive. Lactic is still pending. Patient is currently on antibio tics. 5. Possible COPD exacerbation. Patient has a history of COPD. Patient will be placed on IV Solu-Medrol see if this will improve his breathing. Patient will continue with his at-home inhalers and will have breathing treatments as well. 6. Diabetes mellitus. Patient will be continued with his home dose of Levemir as well as sliding scale. 7. Chronic kidney disease stage 3. We will monitor the patient's creatinine closely throughout his admission. 8. Hypertension. We'll continue with the patient's current medication. 9. DVT prophylaxis: Patient will be fully anticoagulated with eliquis. 10. CODE STATUS: Full code. Disposition. Patient will be admitted to the intensive care unit for titration of Cardizem drip. Once heart rate is controlled, patient can be transferred out of the intensive care unit. We expect a greater than 2 midnights today. Addendum: We are having difficulty obtaining vascular accesses in obtaining labs. Patient did have one peripheral IV and were able to run the Cardizem drip as well as vancomycin. We checked with pharmacy to make sure that these would be compatible together and they were. Patient will most likely need central venous access in the morning to be able to draw labs from as well as secure vascular access for the patient. Home Medications Scheduled Amlodipine Besylate (Amlodipine Besylate) 10 Mg Tablet, 10 MG PO DAILY Duloxetine Hcl (Duloxetine HCl) 60 Mg Cap, 60 MG PO DAILY Ergocalciferol (Vitamin D2) (Vitamin D2) 50,000 Units Cap, 50,000 UNITS PO 1XWK TAKES ON FRIDAY Fenofibrate Nanocrystallized (Fenofibrate) 145 Mg Tablet, 145 MG PO DAILY Ferrous Sulfate (Ferrous Sulfate) 325 Mg Tab, 325 MG PO DAILY NEEDS REFILL Insulin Detemir (Levemir Flextouch) 100 Unit/Ml Inj, 26 UNIT SC QHS Ipratropium/Albuterol Sulfate (Iprat-Albut 0.5-3(2.5) mg/3 ml) 1 Lia Lia, 1 INH INH Q4H Omeprazole (Omeprazole) 20 Mg Cap, 20 MG PO QHS Salmeterol/Fluticasone (Advair 250-50 Diskus) 14 Puff/Inhaler Aerp, 1 PUFF INH BID Tiotropium [place] (Spiriva) 18 Mcg Cap, 1 INH INH DAILY Allergies Coded Allergies: No Known Allergies (Verified , 03/06/04) A-FIB/CHADSVASC A-FIB History Current/History of A-Fib/PAF?: Yes Current PO Anticoag Therapy: Yes Treatment Treatment ordered: Apixaban GME ATTESTATION GME ATTESTATION My faculty preceptor for this patient encounter was physically present during the encounter and was fully available. All aspects of the patient interview, examination, medical decision making process, and medical care plan development were reviewed and approved by the faculty preceptor. The faculty preceptor is aware and concurs with the plan as stated in the body of this note and will attest to such by his/her cosignature. ATTENDING NOTE I reviewed and edited the note and agree with the findings as documented. SHADE LIMON DO Sep 25, 2019 02:09 YVETTE SHEIKH MD Sep 26, 2019 06:58
[2019-09-25] MEDS: HumaLOG INSULIN (NovoLOG) PER UNIT SC SCH ×5 (03:08→21:00)
[2019-09-25] MEDS: OMEPRAZOLE 20 MG CAP PO SCH ×2 (03:09→21:10)
[2019-09-25] MEDS: APIXABAN 2.5 MG TAB (ELIQUIS) PO SCH ×3 (03:09→21:10)
--- NOTE | 2019-09-25 05:30 | PHACANCOPD ---
PHARMACY VANCOMYCIN DOSING Pt Demographics Demographics Patient Age:84 , Weight:78.600 , Gender: male Adjusted Body Weight Date: 09/25/19, Adjusted Body Weight: [77.3] Kg Vancomycin Vancomycin indication: SEPSIS/UTI/SSTI Vancomycin Target Ranges: 10-20 mcg/ml Vancomycin Load Y/N: No Load Dose Date Time Vancomycin Load Dose: Date: Time: Vancomycin Dose Date: 09/25/19. Current Vancomycin Dose: [1GM@03,THEN Q18H@12] Intermittent Dosing?: No Labs Micro Microbiology 09/25/19 Gram Stain, Received Pending 09/25/19 Wound Culture, Received Pending 09/24/19 Urine Culture, Received Pending 09/24/19 Blood Culture, Received Pending 09/24/19 Blood Culture, Received Pending Creatinine Clearance Date:09/25/19. Creatinine Clearance: [47.7].CALCULATED Assessment and Plan Maintaining Current Dose?: Yes Reason for dose change: No Dose Change Pharmacist Note Pharmacist Note Date: 09/25/19. Pharmacist note:84yum,70",83.64 KG(ABW=77.3KG),scr=1.31,crcl=47.5 NKDA,ADMITTED D/T SEPSIS SECONDARY TO UTI/ALSO POSSIBLE SSTI FROM LEFT HIP WOUND.Vancomycin consult ordered.Vanco 1 gram IV@26391, the will begin 1 gram IV Q18H @12:00 today. Trough is scheduled 09/25@0500(prior to the 3rd dose) RITA ZENDEJAS PHARMACY Sep 25, 2019 05:30
[2019-09-25] MEDS: IPRATROPIUM 0.5MG/ALBUTEROL 2.5MG INH SOL UD 3ML (DUONEB)(J7620) NEB SCH ×4 (06:19→22:07)
[2019-09-25 07:45] LABS: HEMOGLOBIN 15.1 g/dl (13.5-17.5); MEAN CORPUSCULAR HEMOGLOBIN 27.9 pg (27.0-33.0); MEAN CORPUSCULAR HGB CONC 32.1 g/dl (32.0-36.5); MEAN CORPUSCULAR VOLUME 86.9 fl (80.0-96.0); PLATELET COUNT, AUTOMATED 236 10^3/uL (150-450); RED BLOOD COUNT 5.41 10^6/uL (4.30-6.10); WHITE BLOOD COUNT 10.8 10^3/uL (4.0-10.0)
[2019-09-25 07:49] LABS: BLOOD UREA NITROGEN 16 MG/DL (7-18); CALCIUM LEVEL 8.3 MG/DL (8.8-10.2); CARBON DIOXIDE LEVEL 26 MEQ/L (21-32); CHLORIDE LEVEL 104 MEQ/L (98-107); CREATININE FOR GFR 0.98 MG/DL (0.70-1.30); GLOMERULAR FILTRATION RATE > 60.0 (>35); GLUCOSE, FASTING 191 MG/DL (70-100); POTASSIUM SERUM 4.3 MEQ/L (3.5-5.1); SODIUM LEVEL 137 MEQ/L (136-145)
[2019-09-25 07:54] LABS: CK-MB VALUE MASS < 1.0 NG/ML (<3.6); CPK CREATINE PHOSPHOKINASE 20 U/L (39-308); TROPONIN I < 0.02 NG/ML (< 0.10)
[2019-09-25] MEDS ORDERED: methylPREDNISolone INJ 125 MG/2 ML VIAL (J2930) IV SCH (08:00)
[2019-09-25] MEDS: TIOTROPIUM INHALER/CAPSULE (SPIRIVA) INH SCH (08:21)
[2019-09-25] MEDS: ADVAIR HFA 115/21MCG INHALER INH SCH ×2 (08:22→22:07)
[2019-09-25 08:36] LABS: ALT/SGPT 16 U/L (12-78); BILIRUBIN,TOTAL 0.4 MG/DL (0.2-1.0); TOTAL PROTEIN 6.7 GM/DL (6.4-8.2)
[2019-09-25] MEDS: FERROUS SULFATE 325MG TAB PO SCH (08:55)
[2019-09-25] MEDS: FENOFIBRATE 145 MG TAB (TRICOR) PO SCH (08:55)
[2019-09-25] MEDS: DULoxetine 30 MG CAP (CYMBALTA) PO SCH (08:55)
[2019-09-25] MEDS ORDERED: amLODIPine 10 MG TAB PO SCH (09:00)
[2019-09-25] MEDS: VANCOMYCIN HCL 1,000 MG, VIAL MATE ADAPTER 1 EACH in D5W 250 ML IV SCH (12:04)
--- NOTE | 2019-09-25 18:44 | ECGEPIP ---
[facility] - ED Test Date: 2019-09-24 Pat Name: AKASH EARLY Department: Room: [place] [address] Gender: Male Sr. Manager: HILARIO : [id number] Requested By: JOHAN Alvarado Order Number: [id number] Reading MD: Brisa Hunt Measurements Intervals [place] Rate: 148 P: [place]: 0 QRS: -38 QRSD: 90 T: 74 QT: 291 QTc: 457 Interpretive Statements ATRIAL FIBRILLATION WITH RAPID VENTRICULAR RESPONSE PROBABLE BASELINE ARTIFACT LIMITS INTERPRETATION LAD MODERATE ST DEPRESSION DECREASED RATE 03/26/19 Electronically Signed on 09-25-2019 18:43:50 EST by Brisa Hunt
[2019-09-25] MEDS: LEVEMIR (INSULIN DETEMIR) 1 UNITS/0.01ML SC SCH (21:09)
[2019-09-25] MEDS: cefTRIAXone SOD 1 GM in D5W MINI-BAG PLUS 50 ML IV SCH (23:43)
[2019-09-26] VITALS (11 sets, daily range): BP systolic 109–145; BP diastolic 56–83
[2019-09-26] MEDS: IPRATROPIUM 0.5MG/ALBUTEROL 2.5MG INH SOL UD 3ML (DUONEB)(J7620) NEB SCH ×4 (01:42→20:00)
[2019-09-26] MEDS: NYSTATIN 100,000 UNITS/GM TOPICAL PWD 15 GM TOP SCH ×3 (04:56→20:21)
[2019-09-26 05:19] LABS: HEMATOCRIT 38.2 % (42.0-52.0); MEAN CORPUSCULAR HEMOGLOBIN 28.8 pg (27.0-33.0); MEAN CORPUSCULAR HGB CONC 33.2 g/dl (32.0-36.5); MEAN CORPUSCULAR VOLUME 86.6 fl (80.0-96.0); PLATELET COUNT, AUTOMATED 227 10^3/uL (150-450); RED BLOOD COUNT 4.41 10^6/uL (4.30-6.10); WHITE BLOOD COUNT 11.5 10^3/uL (4.0-10.0)
[2019-09-26 05:29] LABS: HEMOGLOBIN 12.7 g/dl (13.5-17.5)
[2019-09-26 05:43] LABS: CALCIUM LEVEL 8.5 MG/DL (8.8-10.2); CREATININE FOR GFR 1.28 MG/DL (0.70-1.30); GLOMERULAR FILTRATION RATE 57.3 (>35); MAGNESIUM LEVEL 1.6 MG/DL (1.8-2.4); POTASSIUM SERUM 4.1 MEQ/L (3.5-5.1); VANCOMYCIN LEVEL TROUGH 8.4 UG/ML (10.0-20.0)
[2019-09-26] MEDS ORDERED: MAGNESIUM OXIDE 400 MG TAB (MAG-OX) PO ONE (06:00)
[2019-09-26] MEDS: VANCOMYCIN HCL 1,000 MG, VIAL MATE ADAPTER 1 EACH in D5W 250 ML IV SCH (06:15)
--- NOTE | 2019-09-26 06:31 | PHACANCOPD ---
PHARMACY VANCOMYCIN DOSING Pt Demographics Demographics Patient Age:84 , Weight:79.200 , Gender: male Adjusted Body Weight Date: 09/25/19, Adjusted Body Weight: [77.3] Kg Vancomycin Vancomycin indication: SEPSIS/UTI/SSTI Vancomycin Target Ranges: 10-20 mcg/ml Vancomycin Load Y/N: No Load Dose Date Time Vancomycin Load Dose: Date: Time: Vancomycin Dose Date: 09/25/19. Current Vancomycin Dose: [1GM@03, THEN 1GM Q18H:Date: 09/26/19. Cu rrent Vancomycin Dose: 1 GM IV Q18H@12] Intermittent Dosing?: No Labs Micro Microbiology 09/25/19 Gram Stain - Final, Resulted 09/25/19 Wound Culture, Resulted Pending 09/24/19 Urine Culture - Final, Complete 09/24/19 Blood Culture - Preliminary, Resulted No growth after 24 hours . All specim... 09/24/19 Blood Culture - Preliminary, Resulted No growth after 24 hours . All specim... Creatinine Clearance Date:09/26/19. Creatinine Clearance: [47]. Date:09/25/19. Creatinine Clearance: [47.7].CALCULATED Assessment and Plan Maintaining Current Dose?: Yes Reason for dose change: No Dose Change Pharmacist Note Pharmacist Note Date: 09/26/19. Pharmacist note:Vancomycin trough d rawn this morning reports @8.4(goal=10-20),SCR+1.28 Will order additional 500mg dose to be administered this am @0800,then will continue with the Vancomycin 1 gram iv q18h regimen.Next trough is scheduled for 09/26@1700 Date: 09/25/19. Pharmacist note:84yum,70",83.64 KG(ABW=77.3KG),scr=1.31,crcl=47.5 NKDA,ADMITTED D/T SEPSIS SECONDARY TO UTI/ALSO POSSIBLE SSTI FROM LEFT HIP WOUND.Vancomycin consult ordered.Vanco 1 gram IV@08589, the will begin 1 gram IV Q18H @12:00 today. Trough is scheduled 09/25@0500(prior to the 3rd dose) RITA ZENDEJAS PHARMACY Sep 26, 2019 06:30
[2019-09-26] MEDS: ADVAIR HFA 115/21MCG INHALER INH SCH ×2 (07:35→20:19)
[2019-09-26] MEDS: TIOTROPIUM INHALER/CAPSULE (SPIRIVA) INH SCH (07:35)
[2019-09-26] MEDS ORDERED: VANCOMYCIN HCL 500 MG in D5W MINI-BAG PLUS 100 ML IV ONE (08:00)
[2019-09-26] MEDS: HumaLOG INSULIN (NovoLOG) PER UNIT SC SCH ×4 (08:08→20:45)
[2019-09-26] MEDS: FERROUS SULFATE 325MG TAB PO SCH (08:09)
[2019-09-26] MEDS: DULoxetine 30 MG CAP (CYMBALTA) PO SCH (08:09)
[2019-09-26] MEDS: APIXABAN 2.5 MG TAB (ELIQUIS) PO SCH ×2 (08:09→20:21)
[2019-09-26] MEDS: FENOFIBRATE 145 MG TAB (TRICOR) PO SCH (08:09)
[2019-09-26] MEDS ORDERED: methylPREDNISolone INJ 40 MG/1 ML VIAL (J2920) IV SCH (09:00)
[2019-09-26] MEDS ORDERED: VITAMIN D 50,000 UNITS CAPSULE (ERGOCALCIFEROL 1.25MG) PO SCH (09:00)
--- NOTE | 2019-09-26 12:05 | IPN ---
DATE: 09/26/2019 Blake is seen in the ICU. His heart rate has slowed down and he is intermittently in sinus rhythm, then atrial fibrillation and then some undetermined rhythm that seems to be an atrial arrhythmia. Heart rate is 80 to 100 now. Blood pressure has been 110 systolic. He denies any chest pain, shortness of breath. Overall feels well. His wound culture is still pending. His MRSA screen was negative. Urine culture came back negative. Blood cultures are negative. PHYSICAL EXAMINATION: 110/58, pulse of 80, respiratory rate is around 20, 95% oxygen saturation on 2 liters. General appearance: Resting comfortably. In no distress. Alert, conversant. Lungs: Decreased breath sounds, but clear. Heart: Irregular rate and rhythm. Rate around 70 to 100. Abdomen: Soft, nontender, no masses. Trace peripheral edema. Left hip wound is dressed. LABS: White count 11.5, hemoglobin 12.7, platelets 227. Sodium 135, potassium 4.1, BUN 22, creatinine 1.2. Glucose 172.
[2019-09-26] MEDS: OMEPRAZOLE 20 MG CAP PO SCH (20:21)
[2019-09-26] MEDS: LEVEMIR (INSULIN DETEMIR) 1 UNITS/0.01ML SC SCH (20:46)
--- NOTE | 2019-09-26 21:24 | IPN ---
DATE: 09/25/2019 PRIMARY CARE PROVIDER: [facility]. HISTORY: Mr. English is an 84-year-old, admitted with atrial fibrillation, rapid ventricular response. He was admitted for the same condition in March 2019, had an echocardiogram at that time where he had converted to sinus rhythm. Left atrium was 34 mm. Ejection fraction of 65%. He has aortic sclerosis without stenosis. Essentially normal echocardiogram. He converted to sinus rhythm, was not discharge on any anticoagulants as he has had a recent fall. He is re-admitted with atrial fibrillation with rapid ventricular response. He denies any chest pain, shortness of breath, actually feels better today. He probably has a urinary tract infection. He has had a single dose of Rocephin given. On admission, does not have further antibiotics ordered at this time. He is not on diltiazem drip. Heart rates are 110 to 130. PHYSICAL EXAMINATION: 127/79, pulse of 120, 98% oxygen saturation on 2 liters. GENERAL APPEARANCE: Elderly, resting in bed, alert, conversant. HEENT: Unremarkable. LUNGS: Decreased breath sounds, clear. HEART: Regular rate and rhythm. 1/6 systolic ejection murmur. ABDOMEN: Soft, nontender, no masses. Trace peripheral edema. Pulses decreased in the feet, but palpable. No costovertebral angle (CVA) tenderness. LABORATORY: White count 10.8, hemoglobin 15, platelets 236. Sodium 137, potassium 4.3, BUN 16, creatinine 7.09. Blood sugar is 190s. IMPRESSION: 1. Atrial fibrillation, rapid ventricular response. He is diltiazem drip, but he is still not controlled. Will start some oral diltiazem and this will facilitate while weaning off the drip. He is tolerating this without significant problems. His troponins are flat. 2. Suspected urinary tract infection . He received a single dose of antibiotic yesterday. He does not have ongoing antibiotic ordered. Will continue Rocephin 1 gm IV every 24 hours, waiting for urine and blood cultures. 3. Diabetes. I am reducing his detemir insulin. He is on an enforced diabetic diet. A risk of hypoglycemia, if he needs to continue his usual insulin doses. 4. ?Chronic obstructive pulmonary disease (COPD) exacerbation. Possible chronic obstructive pulmonary disease (COPD) exacerbation. His lungs are clear. He is receiving a hefty dose of IV steroid that could affect his blood sugar. I do not think chronic obstructive pulmonary disease (COPD) is significant problem right now and will reduce his prednisone and steroids to Solu-Medrol 40 mg IV daily for four more days and then discontinue. 5. Hypertension. Diltiazem has been started, as amlodipine was already discontinued . 6. Hyperlipidemia. He is fenofibrate, but no statin. Not sure why that choice was made as an outpatient. I do not have access to his lab data, will continue this in the absence of more information. 7. Acute kidney injury. This has resolved since admission with some gentle hydration. I agree with this decision to initiate anticoagulation in this patient. He has not had recent falls and the risk of thromboembolic stroke always the potential risk of a patient with no recent falls.
[2019-09-26] MEDS: cefTRIAXone SOD 1 GM in D5W MINI-BAG PLUS 50 ML IV SCH (22:07)
[2019-09-27] VITALS: BP 122/80
[2019-09-27] MEDS: IPRATROPIUM 0.5MG/ALBUTEROL 2.5MG INH SOL UD 3ML (DUONEB)(J7620) NEB SCH ×4 (01:53→19:52)
[2019-09-27 04:00] VITALS: BP 135/64
[2019-09-27 04:13] LABS: HEMATOCRIT 38.1 % (42.0-52.0); HEMOGLOBIN 12.4 g/dl (13.5-17.5); MEAN CORPUSCULAR HGB CONC 32.5 g/dl (32.0-36.5); PLATELET COUNT, AUTOMATED 220 10^3/uL (150-450); RED BLOOD COUNT 4.43 10^6/uL (4.30-6.10); WHITE BLOOD COUNT 8.5 10^3/uL (4.0-10.0)
[2019-09-27 04:33] LABS: BLOOD UREA NITROGEN 27 MG/DL (7-18); CALCIUM LEVEL 8.9 MG/DL (8.8-10.2); CARBON DIOXIDE LEVEL 24 MEQ/L (21-32); CHLORIDE LEVEL 101 MEQ/L (98-107); CREATININE FOR GFR 1.22 MG/DL (0.70-1.30); GLOMERULAR FILTRATION RATE > 60.0 (>35); GLUCOSE, FASTING 177 MG/DL (70-100); MAGNESIUM LEVEL 1.7 MG/DL (1.8-2.4); POTASSIUM SERUM 4.1 MEQ/L (3.5-5.1); SODIUM LEVEL 133 MEQ/L (136-145)
[2019-09-27 08:00] VITALS: BP 125/59
[2019-09-27] MEDS: ADVAIR HFA 115/21MCG INHALER INH SCH ×2 (08:04→19:52)
[2019-09-27] MEDS: TIOTROPIUM INHALER/CAPSULE (SPIRIVA) INH SCH (08:04)
[2019-09-27] MEDS: HumaLOG INSULIN (NovoLOG) PER UNIT SC SCH ×4 (08:46→21:00)
[2019-09-27] MEDS: FERROUS SULFATE 325MG TAB PO SCH (08:46)
[2019-09-27] MEDS: APIXABAN 2.5 MG TAB (ELIQUIS) PO SCH ×2 (08:46→22:10)
[2019-09-27] MEDS: FENOFIBRATE 145 MG TAB (TRICOR) PO SCH (08:46)
[2019-09-27] MEDS: NYSTATIN 100,000 UNITS/GM TOPICAL PWD 15 GM TOP SCH ×2 (08:47→22:12)
[2019-09-27] MEDS: DULoxetine 30 MG CAP (CYMBALTA) PO SCH (08:50)
--- NOTE | 2019-09-27 11:10 | IPN ---
DATE OF SERVICE: 09/27/2019 Blake is seen in intensive care unit (ICU). He is a progressive care unit (PCU) patient. He is in the ICU as an overflow. He is on the hospitalist service with atrial fibrillation with rapid ventricular response. His heart rate has remained elevated during this admission. Initially on diltiazem drip. We put him on oral diltiazem. Dose has been increased. His heart rate is slowly coming down to acceptable range. This morning, his heart rate was 90-100 on rounds. He denies chest pain, shortness of breath, palpitations. PHYSICAL EXAMINATION: 125/90, pulse is around 90, 96% oxygen (O2) saturation on 2 liters (is on chronic supplemental oxygen at home at 2 liters). Is alert, conversant, in no distress, elderly. HEENT: Unremarkable. No jugular venous distention (JVD). Irregular rate and rhythm. Rate is around 100. Abdomen: Soft, nontender, no masses. No peripheral edema. LABORATORIES: Complete blood count (CBC) is stable with hemoglobin of 12.4. Sodium 133, potassium 4.1, BUN 27, creatinine 1.2, glucose 177, magnesium 1.7. IMPRESSION: 1. Atrial fibrillation with rapid ventricular response. Diltiazem dose was increased overnight. His heart rate is coming down. Once his daily diltiazem dose is determined, he could be switched to a more convenient once or twice daily for him. Continue his Eliquis 2.5 mg twice a day for thromboembolic prophylaxis. 2. Left hip wound. He grew out a few proteus. He is on Rocephin. This will be discontinued, and he will switched to oral Keflex. 3. Chronic obstructive pulmonary disease (COPD) with chronic respiratory failure needing chronic supplemental oxygen. Continue his O2 and nebulized bronchodilator. Steroids discontinued a few days ago. 4. Diabetes. Blood sugars are mildly elevated. Will increase the dose of his detemir insulin. I anticipate he will be ready for discharge in the next day or two.
[2019-09-27 12:00] VITALS: BP 148/93
[2019-09-27] MEDS: CEPHALEXIN 500 MG CAP PO SCH ×2 (12:24→22:11)
[2019-09-27 16:00] VITALS: BP 128/81
[2019-09-27 20:00] VITALS: BP 131/58
[2019-09-27] MEDS: OMEPRAZOLE 20 MG CAP PO SCH (22:10)
[2019-09-27] MEDS: LEVEMIR (INSULIN DETEMIR) 1 UNITS/0.01ML SC SCH (22:10)
[2019-09-28] VITALS: BP 133/64
[2019-09-28] MEDS: IPRATROPIUM 0.5MG/ALBUTEROL 2.5MG INH SOL UD 3ML (DUONEB)(J7620) NEB SCH ×4 (02:18→19:50)
[2019-09-28 04:00] VITALS: BP 138/70
[2019-09-28 04:46] LABS: HEMATOCRIT 41.9 % (42.0-52.0); HEMOGLOBIN 13.5 g/dl (13.5-17.5); MEAN CORPUSCULAR HGB CONC 32.2 g/dl (32.0-36.5); MEAN CORPUSCULAR VOLUME 86.7 fl (80.0-96.0); PLATELET COUNT, AUTOMATED 201 10^3/uL (150-450); RED BLOOD COUNT 4.83 10^6/uL (4.30-6.10); WHITE BLOOD COUNT 9.7 10^3/uL (4.0-10.0)
[2019-09-28 05:13] LABS: BLOOD UREA NITROGEN 27 MG/DL (7-18); CARBON DIOXIDE LEVEL 29 MEQ/L (21-32); CHLORIDE LEVEL 101 MEQ/L (98-107); CREATININE FOR GFR 0.99 MG/DL (0.70-1.30); GLOMERULAR FILTRATION RATE > 60.0 (>35); GLUCOSE, FASTING 87 MG/DL (70-100); MAGNESIUM LEVEL 1.9 MG/DL (1.8-2.4); POTASSIUM SERUM 4.1 MEQ/L (3.5-5.1); SODIUM LEVEL 135 MEQ/L (136-145)
[2019-09-28] MEDS: HumaLOG INSULIN (NovoLOG) PER UNIT SC SCH ×4 (07:30→21:00)
[2019-09-28 08:00] VITALS: BP 157/66
[2019-09-28] MEDS: TIOTROPIUM INHALER/CAPSULE (SPIRIVA) INH SCH (08:51)
[2019-09-28] MEDS: NYSTATIN 100,000 UNITS/GM TOPICAL PWD 15 GM TOP SCH ×2 (09:00→21:27)
[2019-09-28] MEDS: CEPHALEXIN 500 MG CAP PO SCH ×2 (09:15→21:27)
[2019-09-28] MEDS: DULoxetine 30 MG CAP (CYMBALTA) PO SCH (09:15)
[2019-09-28] MEDS: FENOFIBRATE 145 MG TAB (TRICOR) PO SCH (09:15)
[2019-09-28] MEDS: FERROUS SULFATE 325MG TAB PO SCH (09:15)
[2019-09-28] MEDS: APIXABAN 2.5 MG TAB (ELIQUIS) PO SCH ×2 (09:16→21:27)
[2019-09-28] MEDS: ADVAIR HFA 115/21MCG INHALER INH SCH ×2 (09:27→19:50)
--- NOTE | 2019-09-28 09:51 | IPNPDOC ---
Text Note Date of Service The patient was seen on 09/28/19. NOTE Subjective: Patient is an 84-year-old male with a past medical history of COPD on 2L O2, CAD, HTN, DLP, DM2, CKD3, GERD who presented to the ER with complaints of worsening shortness of breath. In the emergency room, patient was found to be in A. fib with RVR. He was admitted to the hospitalist service for further evaluation and treatment. Patient was also noted to have a urinary tract infection. Patient was seen and examined at the bedside. Currently, patient appears to be doing well. . He denies any problems overnight. He denies any current shortness of breath as reported mild cough. Denies any abdominal pain, nausea, vomiting, constipation, or urinary discomfort. Objective: Vitals (See below) General: Lying in bed, no acute distress, comfortable, Awake / Alert HEENT: NC, AT CVS: +S1S2 Lungs: Fair air entry b/l, -w/r/r Abdomen: Soft, ND, NT Extremities: - Edema, - Calf tenderness Assessment and plan: Atrial fibrillation with RVR - Currently, patient is not expressing any symptoms - Ray appears to be better controlled - Will change the patient's short-acting Diltiazem to long-acting today - c/w Full anticoagulation with Eliquis Leukocytosis - likely 2/2 Left hip wound, less likely 2/2 UTI - Wound culture 09/24: Proteus mirabilis, Staphylococcus aureus, Corynebacterium species - Blood cultures/urine cultures. 09/23: Negative - s/p Rocephin; c/w Keflex (Antibiotic day #5 of ) COPD on 2L O2 / Chronic hypoxic respiratory failure - No evidence of exacerbation - On baseline level of oxygen - s/p Corticosteroids - c/w inhaled therapy as ordered CAD - Will have outpatient follow up with Cardiology HTN - BP appears well controlled - c/w Cardizem DLP - c/w Fenofibrate IDDM2 with Hyperglycemia - c/w ISS and Levemir CKD3 - Creatinien baseline of 1.1-1.2 - Cr currently better than baseline GERD - c/w Omeprazole DVT prophylaxis - c/w full anticoagulation with Eliquis Disposition: - Will transition to long-acting rate control medications - Pap for discharge within the next 24 hours VS,Fishbone, I+O VS, Fishbone, I+O Laboratory Tests 09/28/19 04:29 Vital Signs Date Time Temp Pulse Resp B/P (MAP) Pulse Ox O2 Delivery O2 Flow Rate FiO2 09/28/19 06:57 100 138/70 09/28/19 04:00 97.9 17 98 Nasal Cannula 2.0 I&O- Last 24 Hours up to 6 AM 09/28/19 06:00 Intake Total 1560 ml Output Total 400 ml Balance 1160 ml SPEEDY METZ MD Sep 28, 2019 09:51
[2019-09-28 12:00] VITALS: BP 141/93
[2019-09-28] MEDS: diltiaZEM **CD** 180 MG CAP PO SCH (13:12)
[2019-09-28 16:00] VITALS: BP 158/82
[2019-09-28 20:00] VITALS: BP 136/76
[2019-09-28] MEDS: OMEPRAZOLE 20 MG CAP PO SCH (21:27)
[2019-09-28] MEDS: LEVEMIR (INSULIN DETEMIR) 1 UNITS/0.01ML SC SCH (21:27)
[2019-09-29] VITALS: BP 131/70
[2019-09-29] MEDS: IPRATROPIUM 0.5MG/ALBUTEROL 2.5MG INH SOL UD 3ML (DUONEB)(J7620) NEB SCH ×2 (01:27→07:18)
[2019-09-29 04:00] VITALS: BP 126/62
[2019-09-29 05:05] LABS: HEMATOCRIT 39.7 % (42.0-52.0); HEMOGLOBIN 13.1 g/dl (13.5-17.5); MEAN CORPUSCULAR HEMOGLOBIN 28.5 pg (27.0-33.0); MEAN CORPUSCULAR VOLUME 86.3 fl (80.0-96.0); PLATELET COUNT, AUTOMATED 197 10^3/uL (150-450); WHITE BLOOD COUNT 9.8 10^3/uL (4.0-10.0)
[2019-09-29 05:36] LABS: BLOOD UREA NITROGEN 31 MG/DL (7-18); CALCIUM LEVEL 8.4 MG/DL (8.8-10.2); CARBON DIOXIDE LEVEL 30 MEQ/L (21-32); CHLORIDE LEVEL 102 MEQ/L (98-107); CREATININE FOR GFR 1.03 MG/DL (0.70-1.30); GLOMERULAR FILTRATION RATE > 60.0 (>35); GLUCOSE, FASTING 99 MG/DL (70-100); MAGNESIUM LEVEL 1.7 MG/DL (1.8-2.4); POTASSIUM SERUM 3.9 MEQ/L (3.5-5.1); SODIUM LEVEL 137 MEQ/L (136-145)
[2019-09-29] MEDS: ADVAIR HFA 115/21MCG INHALER INH SCH (07:18)
[2019-09-29] MEDS: TIOTROPIUM INHALER/CAPSULE (SPIRIVA) INH SCH (07:18)
[2019-09-29] MEDS: HumaLOG INSULIN (NovoLOG) PER UNIT SC SCH ×2 (07:19→12:00)
[2019-09-29] MEDS ORDERED: MAG SULF 1GM/100ML (MAG RUN) 1 GM in IV 1 EA IV ONE (07:30)
[2019-09-29 08:13] VITALS: BP 130/63
[2019-09-29] MEDS: FENOFIBRATE 145 MG TAB (TRICOR) PO SCH (08:18)
[2019-09-29] MEDS: APIXABAN 2.5 MG TAB (ELIQUIS) PO SCH (08:18)
[2019-09-29] MEDS: FERROUS SULFATE 325MG TAB PO SCH (08:18)
[2019-09-29 08:19] VITALS: BP 130/63
[2019-09-29] MEDS: CEPHALEXIN 500 MG CAP PO SCH (08:19)
[2019-09-29] MEDS: diltiaZEM **CD** 180 MG CAP PO SCH (08:19)
[2019-09-29] MEDS: DULoxetine 30 MG CAP (CYMBALTA) PO SCH (08:19)
[2019-09-29] MEDS: NYSTATIN 100,000 UNITS/GM TOPICAL PWD 15 GM TOP SCH (08:20)
[2019-09-29] MEDS ORDERED: CEPH500C PO (09:44)
[2019-09-29] MEDS ORDERED: ELIQ5TAB PO (09:44)
[2019-09-29] MEDS ORDERED: CARD180C4 PO (09:44)
--- NOTE | 2019-09-29 10:11 | DS.PDOC ---
Discharge Summary General Date of Admission Sep 24, 2019 at 23:32 Date of Discharge 09/29/2019 Discharge Summary PROCEDURES PERFORMED DURING STAY: [None]. ADMITTING DIAGNOSES / DISCHARGE DIAGNOSES: Atrial fibrillation with RVR s/p Leukocytosis - likely 2/2 Left hip wound, less likely 2/2 UTI Left hip wound / Local skin and subcutaneous tissue infection of Left hip / Possible stage 3 pressure ulcer COPD on 2L O2 / Chronic hypoxic respiratory failure CAD HTN DLP IDDM2 with Hyperglycemia CKD3 GERD DVT prophylaxis COMPLICATIONS/CHIEF COMPLAINT: Shortness of breath HISTORY OF PRESENT ILLNESS: Patient is an 84-year-old male with a past medical history of COPD on 2L O2, CAD, HTN, DLP, DM2, CKD3, GERD who presented to the ER with complaints of worsening shortness of breath. In the emergency room, patient was found to be in A. fib with RVR. He was admitted to the hospitalist service for further evaluation and treatment. Patient was also noted to have a urinary tract infection. HOSPITAL COURSE: Atrial fibrillation with RVR - Patient remains asymptomatic at this time. He denies shortness of breath, chest pain or palpitations - Rate has been fairly well controlled - c/w long acting Diltiazem - c/w Full anticoagulation with Eliquis; dose adjusted - Patient has been cleared for discharge by physical therapy s/p Leukocytosis - likely 2/2 Left hip wound, less likely 2/2 UTI - Wound culture 09/24: Proteus mirabilis, Staphylococcus aureus, Corynebacterium species - Blood cultures/urine cultures. 09/23: Negative - s/p Rocephin; c/w Keflex (Antibiotic day #6 of 10) COPD on 2L O2 / Chronic hypoxic respiratory failure - No evidence of exacerbation - On baseline level of oxygen - s/p Corticosteroids - c/w inhaled therapy as ordered CAD - Will have outpatient follow up with Cardiology HTN - BP appears well controlled - s/p Amlodipine - c/w Cardizem DLP - c/w Fenofibrate IDDM2 with Hyperglycemia - c/w ISS and Levemir CKD3 - Creatinine baseline of 1.1-1.2 - Cr currently better than baseline GERD - c/w Omeprazole DVT prophylaxis - c/w full anticoagulation with Eliquis DISCHARGE MEDICATIONS: Please see below. ALLERGIES: Please see below. PHYSICAL EXAMINATION ON DISCHARGE: Vitals (See below) General: Lying in bed, no acute distress, comfortable, AAOx3 HEENT: NC, AT CVS: +S1S2 Lungs: Fair air entry b/l, no appreciable wheezing, rhonchi or rales Abdomen: Soft, nondistended, without tenderness Extremities: Trace edema noted, - Calf tenderness LABORATORY DATA: Please see below. IMAGING: CXR 09/23: Pleuroparenchymal scarring right upper perihilar region unchanged. Otherwise no acute disease. ACTIVITY: [As tolerated]. DISCHARGE PLAN: Follow with primary care provider and cardiology within 7 days Remain compliant with treatment plan and medications Return to the ER if you experience any problems DISPOSITION: Home with services DISCHARGE CONDITION: [Stable]. TIME SPENT ON DISCHARGE: 35 minutes Vital Signs/I&Os Vital Signs Date Time Temp Pulse Resp B/P (MAP) Pulse Ox O2 Delivery O2 Flow Rate FiO2 09/29/19 08:19 85 130/63 09/29/19 08:13 97.7 20 95 Nasal Cannula 2.0 I&O- Last 24 Hours up to 6 AM 09/29/19 06:00 Intake Total 1200 ml Output Total 255 ml Balance 945 ml Laboratory Data Labs 24H Laboratory Tests 2 09/28/19 12:30: Bedside Glucose (Misc Panel) 150H 09/28/19 18:14: Bedside Glucose (Misc Panel) 154H 09/28/19 21:25: Bedside Glucose (Misc Panel) 138H 09/29/19 04:35: Nucleated Red Blood Cells % (auto) 0.0, Anion Gap 5L, Glomerular Filtration Rate > 60.0, Calcium Level 8.4L, Magnesium Level 1.7L CBC/BMP Laboratory Tests 09/29/19 04:35 FSBS Laboratory Tests Test 09/28/19 12:30 09/28/19 18:14 09/28/19 21:25 Range/Units Bedside Glucose (Misc Panel) 150 154 138 83-110 MG/DL Microbiology Microbiology 09/25/19 Gram Stain - Final, Complete 09/25/19 Wound Culture - Final, Complete Proteus Mirabilis Staphylococcus Aureus Corynebacterium Species 09/24/19 Urine Culture - Final, Complete 09/24/19 Blood Culture - Preliminary, Resulted No Growth after 72 hours. All specime... 09/24/19 Blood Culture - Preliminary, Resulted No Growth after 72 hours. All specime... Discharge Medications Scheduled Apixaban (Eliquis) 5 Mg Tablet, 1 TAB PO BID Cephalexin (Cephalexin) 500 Mg Capsule, 500 MG PO BID Diltiazem Hcl (Cardizem Cd) 180 Mg Cap.er.24h, 360 MG PO DAILY Duloxetine Hcl (Duloxetine HCl) 60 Mg Cap, 60 MG PO DAILY, (Reported) Ergocalciferol (Vitamin D2) (Vitamin D2) 50,000 Units Cap, 50,000 UNITS PO 1XWK, (Reported) TAKES ON FRIDAY Fenofibrate Nanocrystallized (Fenofibrate) 145 Mg Tablet, 145 MG PO DAILY, (Reported) Ferrous Sulfate (Ferrous Sulfate) 325 Mg Tab, 325 MG PO DAILY, (Reported) NEEDS REFILL Insulin Detemir (Levemir Flextouch) 100 Unit/Ml Inj, 26 UNIT SC QHS, (Reported) Ipratropium/Albuterol Sulfate (Iprat-Albut 0.5-3(2.5) mg/3 ml) 1 Lia Lia, 1 INH INH Q4H, (Reported) Omeprazole (Omeprazole) 20 Mg Cap, 20 MG PO QHS, (Reported) Salmeterol/Fluticasone (Advair 250-50 Diskus) 14 Puff/Inhaler Aerp, 1 PUFF INH BID, (Reported) Tiotropium [place] (Spiriva) 18 Mcg Cap, 1 INH INH DAILY, (Reported) Allergies Coded Allergies: No Known Allergies (Verified , 03/06/04) SPEEDY METZ MD Sep 29, 2019 10:11
== END 2019-09-29 12:57 | disposition home health service (06) | DRG 308 ==
LOC: EDBD 19:09 → M ED 19:09 → M ED INP 23:32 → ENRESERV 23:58 → M ICU 09-25 02:00
PROVIDERS: ADMIT Internal Medicine; ATTEND Internal Medicine
DX: I48.91 Unspecified atrial fibrillation (principal); L89.223 Pressure ulcer of left hip, stage 3; J44.1 Chronic obstructive pulmonary disease with (acute) exacerbation; N17.9 Acute kidney failure, unspecified; J96.11 Chronic respiratory failure with hypoxia; E11.22 Type 2 diabetes mellitus with diabetic chronic kidney disease; E78.5 Hyperlipidemia, unspecified; I12.9 Hypertensive chronic kidney disease with stage 1 through stage 4 chronic kidney disease, or unspecified chronic kidney disease; I25.10 Atherosclerotic heart disease of native coronary artery without angina pectoris; K21.9 Gastro-esophageal reflux disease without esophagitis; K64.8 Other hemorrhoids; I35.8 Other nonrheumatic aortic valve disorders; E11.65 Type 2 diabetes mellitus with hyperglycemia; K57.90 Diverticulosis of intestine, part unspecified, without perforation or abscess without bleeding; Z66 Do not resuscitate; Z90.49 Acquired absence of other specified parts of digestive tract; Z87.891 Personal history of nicotine dependence; Z79.4 Long term (current) use of insulin; Z79.899 Other long term (current) drug therapy; Z99.81 Dependence on supplemental oxygen

== ENCOUNTER → 2019-11-05 | Outpatient (REF) | payer MEDICARE, OTHER ==
[~2019-11-05] MED LIST changes: +AMLO10TA5 PO; +CARD180C4 PO; +CEPH500C PO; +ELIQ5TAB PO; +FENO145T7 PO; +VITA500079 PO
[2019-11-05 15:58] LABS: BASO # 0.1 10^3/uL (0.0-0.2); BASO % 0.6 % (0.0-1.0); EOS # 0.3 10^3/uL (0.0-0.5); EOS % 2.4 % (0.0-3.0); HEMATOCRIT 40.5 % (42.0-52.0); HEMOGLOBIN 12.8 g/dl (13.5-17.5); LYMPH # 2.7 10^3/uL (1.5-5.0); LYMPH % 19.8 % (24.0-44.0); MEAN CORPUSCULAR HEMOGLOBIN 28.1 pg (27.0-33.0); MEAN CORPUSCULAR HGB CONC 31.6 g/dl (32.0-36.5); MONO # 0.8 10^3/uL (0.0-0.8); MONO % 5.6 % (0.0-5.0); NEUTROPHILS # 9.6 10^3/uL (1.5-8.5); NEUTROPHILS % 70.9 % (36.0-66.0); PLATELET COUNT, AUTOMATED 372 10^3/uL (150-450); RED BLOOD COUNT 4.55 10^6/uL (4.30-6.10); WHITE BLOOD COUNT 13.5 10^3/uL (4.0-10.0)
[2019-11-05 16:26] LABS: HEMOGLOBIN A1c 8.2 %
[2019-11-05 16:31] LABS: ALBUMIN 3.6 GM/DL (3.2-5.2); BILIRUBIN,TOTAL 0.6 MG/DL (0.2-1.0); CALCIUM LEVEL 8.9 MG/DL (8.8-10.2); CHOLESTEROL RISK RATIO 4.13 (<5); CREATININE FOR GFR 1.26 MG/DL (0.70-1.30); GLOMERULAR FILTRATION RATE 58.3 (>35); POTASSIUM SERUM 4.1 MEQ/L (3.5-5.1); THYROID STIMULATING HORMONE 4.21 uIU/ML (0.358-3.740); TOTAL PROTEIN 7.2 GM/DL (6.4-8.2)
[2019-11-05 16:32] LABS: TOTAL 25(OH) VITAMIN D 19.9 NG/ML (30.0-100.0)
== END ==
LOC: M LAB REF 15:17
PROVIDERS: ATTEND Family Medicine
DX: E11.9 Type 2 diabetes mellitus without complications (principal)

== ENCOUNTER → 2020-03-23 | Outpatient (REF) | payer MEDICARE, OTHER ==
[~2020-03-23] MED LIST changes: -AMLO10TA5 PO; +AMLO1TAB25 PO
[2020-03-23 20:25] LABS: ALBUMIN 3.4 GM/DL (3.2-5.2); ALT/SGPT 19 U/L (12-78); BILIRUBIN,TOTAL 0.6 MG/DL (0.2-1.0); BLOOD UREA NITROGEN 20 MG/DL (7-18); CALCIUM LEVEL 9.1 MG/DL (8.8-10.2); CARBON DIOXIDE LEVEL 28 MEQ/L (21-32); CHLORIDE LEVEL 101 MEQ/L (98-107); CHOLESTEROL LEVEL 143 MG/DL (<200); CHOLESTEROL RISK RATIO 4.612 (<5); CREATININE FOR GFR 1.18 MG/DL (0.70-1.30); GLOMERULAR FILTRATION RATE > 60.0 (>35); GLUCOSE, FASTING 110 MG/DL (70-100); HDL CHOLESTEROL 31 MG/DL (>40); LDL CHOLESTEROL 91 MG/DL (<100); NON-HDL-C 112 MG/DL; POTASSIUM SERUM 4.6 MEQ/L (3.5-5.1); SODIUM LEVEL 136 MEQ/L (136-145); TOTAL PROTEIN 7.1 GM/DL (6.4-8.2); TRIGLYCERIDES LEVEL 107 MG/DL (<150)
[2020-03-23 20:29] LABS: HEMOGLOBIN A1c 6.7 %
== END ==
LOC: M LAB REF 18:05
PROVIDERS: ATTEND Family Medicine Addiction Medicine
DX: I48.91 Unspecified atrial fibrillation (principal); R29.6 Repeated falls; Z79.899 Other long term (current) drug therapy

== ENCOUNTER 2020-11-03 19:59 | Inpatient (IN) | payer MEDICARE, OTHER ==
[~2020-11-03] VITALS: Ht 177.8 cm; Wt 71.3 kg
[~2020-11-03 19:59] MED LIST changes: +ASPI-569 PO; -ASPI81TAEC PO; -CLIN150C14 PO; +CLIN150C15 PO; -IPRA0.00 INH; +IPRA0.00 NEB
--- NOTE | 2020-11-03 21:27 | REPVR ---
PROCEDURE INFORMATION: Exam: XR Chest Exam date and time: 11/03/2020 9:08 PM Age: 85 years old Clinical indication: Dyspnea; Additional info: Dyspnea/cough TECHNIQUE: Imaging protocol: XR of the chest. Views: 1 view. COMPARISON: OR PORTABLE CHEST X-RAY 09/24/2019 7:43 PM FINDINGS: Lungs: Reticular infiltrates demonstrated bilaterally may represent interstitial fibrotic changes. Foci of increased consolidation demonstrated at the left lung base consistent with an interval focus of pneumonitis. Ovoid focus of parenchymal opacity in the right upper lobe measures 2.8 x 0.8 cm. Finding may represent a focus of atelectasis although a mass of other etiology not excluded. CT correlation suggested. Pleural spaces: Unremarkable. No pleural effusion. No pneumothorax. Heart/Mediastinum: Unremarkable. No cardiomegaly. Bones/joints: Unremarkable. IMPRESSION: 1. Foci of increased consolidation demonstrated at the left lung base consistent with an interval focus of pneumonitis. 2. Ovoid focus of parenchymal opacity in the right upper lobe measures 2.8 by 0.8 cm. Finding may represent a focus of atelectasis although a mass of other etiology not excluded. CT correlation suggested. Electronically signed by: Cuauhtemoc Nickerson On 11/03/2020 21:27:53 PM
[2020-11-03 22:17] LABS: BASO # 0.1 10^3/uL (0.0-0.2); BASO % 0.8 % (0.0-1.0); EOS # 0.2 10^3/uL (0.0-0.5); EOS % 1.8 % (0.0-3.0); HEMOGLOBIN 13.4 g/dl (13.5-17.5); LYMPH # 0.8 10^3/uL (1.5-5.0); LYMPH % 6.8 % (24.0-44.0); MEAN CORPUSCULAR HEMOGLOBIN 28.7 pg (27.0-33.0); MEAN CORPUSCULAR HGB CONC 31.2 g/dl (32.0-36.5); MEAN CORPUSCULAR VOLUME 92.1 fl (80.0-96.0); MONO # 0.9 10^3/uL (0.0-0.8); MONO % 7.5 % (2.0-8.0); NEUTROPHILS # 9.3 10^3/uL (1.5-8.5); NEUTROPHILS % 82.7 % (36.0-66.0); PLATELET COUNT, AUTOMATED 323 10^3/uL (150-450); RED BLOOD COUNT 4.67 10^6/uL (4.30-6.10); WHITE BLOOD COUNT 11.3 10^3/uL (4.0-10.0)
[2020-11-03] MEDS ORDERED: METOPROLOL 5 MG/5 ML VIAL IV SCH (22:20)
[2020-11-03 22:28] LABS: INR 1.05; PROTHROMBIN TIME 13.9 SECONDS (12.5-14.3)
[2020-11-03 22:29] LABS: PARTIAL THROMBOPLASTIN TIME 27.4 SECONDS (24.2-38.5)
[2020-11-03] MEDS ORDERED: AMLO1TAB25 PO (22:40)
[2020-11-03] MEDS ORDERED: MED REC COMMENT (22:41)
[2020-11-03 22:54] LABS: ALBUMIN 2.6 GM/DL (3.2-5.2); ALT/SGPT 22 U/L (12-78); BILIRUBIN,DIRECT 0.4 MG/DL (0.0-0.2); BILIRUBIN,TOTAL 0.7 MG/DL (0.2-1.0); BLOOD UREA NITROGEN 28 MG/DL (7-18); CALCIUM LEVEL 9.6 MG/DL (8.8-10.2); CARBON DIOXIDE LEVEL 29 MEQ/L (21-32); CHLORIDE LEVEL 103 MEQ/L (98-107); CK-MB VALUE MASS < 1.0 NG/ML (<3.6); CPK CREATINE PHOSPHOKINASE 24 U/L (39-308); CREATININE FOR GFR 0.77 MG/DL (0.70-1.30); GLOMERULAR FILTRATION RATE > 60.0 (>35); GLUCOSE, FASTING 147 MG/DL (70-100); MB/CK RELATIVE INDEX 4.17 (< OR =4); NT-PRO BNP 2199 PG/ML (<450); POTASSIUM SERUM 4.4 MEQ/L (3.5-5.1); SODIUM LEVEL 139 MEQ/L (136-145); TOTAL PROTEIN 6.4 GM/DL (6.4-8.2); TROPONIN I 0.03 NG/ML (< 0.10)
--- NOTE | 2020-11-03 23:10 | REPVR ---
PROCEDURE INFORMATION: Exam: CT Head Without Contrast Exam date and time: 11/03/2020 10:57 PM Age: 85 years old Clinical indication: Weakness, extremity TECHNIQUE: Imaging protocol: Computed tomography of the head without contrast. Radiation optimization: All CT scans at this facility use at least one of these dose optimization techniques: automated exposure control; mA and/or kV adjustment per patient size (includes targeted exams where dose is matched to clinical indication); or iterative reconstruction. COMPARISON: CT Head without contrast 03/27/2019 1:43 PM FINDINGS: Brain: There is mild patchy low attenuation of deep white matter. There is moderate prominence of the peripheral sulci. Cerebral ventricles: There is moderate prominence of the central ventricular system. Bones/joints: Unremarkable. No acute fracture. Paranasal sinuses: Visualized sinuses are unremarkable. No fluid levels. Mastoid air cells: Visualized mastoid air cells are well aerated. Soft tissues: Unremarkable. IMPRESSION: 1. There has been little change from 03/27/2019. No acute interval intracranial process is identified. 2. Mild chronic ischemic white matter change and moderate atrophy. Electronically signed by: Conor Chirinos On 11/03/2020 23:11:05 PM
[2020-11-04] VITALS (26 sets, daily range): BP systolic 117–172; BP diastolic 56–97
--- NOTE | 2020-11-04 00:58 | REPVR ---
PROCEDURE INFORMATION: Exam: CT Chest Without Contrast; Diagnostic Exam date and time: 11/03/2020 11:04 PM Age: 85 years old Clinical indication: Shortness of breath; Additional info: SOB TECHNIQUE: Imaging protocol: Diagnostic computed tomography of the chest without contrast. 3D rendering (Not supervised by radiologist): MIP and/or 3D reconstructed images were created by the technologist. Radiation optimization: All CT scans at this facility use at least one of these dose optimization techniques: automated exposure control; mA and/or kV adjustment per patient size (includes targeted exams where dose is matched to clinical indication); or iterative reconstruction. COMPARISON: CT ANGIO CHEST 03/26/2019 10:39 PM FINDINGS: Lungs: Minimal diffuse bullous change with reticulonodular infiltrates which appears slightly increased since the prior study. There is mild scattered fibro-atelectatic change and diffuse thickening of bronchial stewart. There is some endobronchial plugging in the posterior left lower lobe with infiltrate and early consolidation posteriorly. There is right upper lobe stranding and scar extending superior laterally from the superior right hilum. Pleural spaces: Unremarkable. No pneumothorax. No pleural effusion. Heart: Unremarkable. No cardiomegaly. No pericardial effusion. Pulmonary arteries: The main pulmonary artery measures 27 mm. Aorta: The ascending thoracic aorta measures 36 mm. Lymph nodes: Small mediastinal nodes which are within normal limits. Gallbladder and bile ducts: Status post cholecystectomy. Kidneys and ureters: There are bilateral upper pole renal cysts measuring up to 4.7 cm on the right which are redemonstrated since the prior study with little change. Bones/joints: There is irregularity of the right 3rd rib laterally with focus of density which is similar to the prior study. Soft tissues: Unremarkable. IMPRESSION: Diffuse bullous change with scattered atelectasis or scar which is similar to the prior study of 03/26/2019. There is diffuse bronchial wall thickening which appears slightly increased and endobronchial plugging in the left lower lobe with peripheral left lower lobe infiltrates and consolidation consistent with interval pneumonia. There is also diffuse reticulonodular tree-in-bud infiltrates which are slightly increased overall since the prior study and may reflect interstitial pneumonia. Electronically signed by: Conor Chirinos On 11/04/2020 00:58:57 AM
[2020-11-04] MEDS ORDERED: VANCOMYCIN HCL 1,000 MG, VIAL MATE ADAPTER 1 EACH in NS 250 ML IV ONE (01:05)
[2020-11-04] MEDS ORDERED: PIPERACILLIN/TAZOBACTAM SOD 4.5 GM in D5W MINI-BAG PLUS 50 ML IV ONE (01:05)
[2020-11-04] MEDS ORDERED: MAALOX 30 ML SUSP *UDC PO PRN (01:30)
[2020-11-04] MEDS ORDERED: ACETAMINOPHEN TAB 650MG DOSE (2X325MG) PO PRN (01:30)
[2020-11-04] MEDS ORDERED: MOM 30ML SUSPENSION UDC PO PRN (01:30)
--- NOTE | 2020-11-04 01:38 | HPEPDOC ---
[facility] Medical History & Physical Date of Admission Nov 04, 2020 Date of Service: Nov 04, 2020 Other Provider Gentry Miranda MD Attending Physician: YVETTE SHEIKH MD History and Physical TIME OF SERVICE: 145am CHIEF COMPLAINT: dyspnea HISTORY OF PRESENT ILLNESS: This 85 yr old M presented w c/o dyspnea for 2 days. He refused to come to the ER but his family called EMS. When EMS found him he was covered in urine, feces and bed bugs. At the time of my evaluation he reported feeling much better but his dyspnea had not completely resolved. He denied felling dizzy, having chest pain or any other acute c/o. REVIEW OF SYSTEMS: 12-point review of systems negative except as listed in HPI PAST MEDICAL/ SURGICAL HISTORY: COPD Diabetes mellitus. Chronic kidney disease stage III Dyslipidemia Hypertension Coronary artery disease GERD Hemorrhoids Diverticulosis Incision and drainage of the wound was left hip Right humeral fracture Cholecystectomy Hernia repair SOCIAL HISTORY: Patient lives at home with his and their daughter. Patient used to smoke cigarettes but stopped greater than 10 years ago. Patient denies daily alcohol or drug use. 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 FAMILY HISTORY: Family history of coronary artery disease and diabetes mellitus ALLERGIES: Please see below. HOME MEDICATIONS: Please see below. PHYSICAL EXAMINATION: Vital Signs Date Time Temp Pulse Resp B/P (MAP) Pulse Ox O2 Delivery O2 Flow Rate FiO2 11/03/20 20:22 211/100 (137) 11/03/20 20:29 85 96 11/03/20 20:45 Nasal Cannula 3.0 96 11/03/20 20:56 100.1 22 GENERAL APPEARANCE: well nourished and well developed HEENT: EOMI / NC in place CARDIOVASCULAR: tachycardic & irregularly irregular / no LE edema LUNGS: CTAB on RA ABDOMEN: obese /soft & NT MUSCULOSKELETAL: NCAT INTEGUMENT: slightly flushed / NEUROLOGICAL: CN 2-12 grossly intact /speech not dysarthric PSYCHIATRIC: A&O /able to understand and follow all commands LABORATORY DATA: 11/03/20 22:08 Prothrombin Time 13.9, Prothromb Time International Ratio 1.05, Activated Partial Thromboplast Time 27.4, Lactic Acid Level 1.7 11/03/20 22:08: Immature Granulocyte % (Auto) 0.4, Neutrophils (%) (Auto) 82.7H, Lymphocytes (%) (Auto) 6.8L, Monocytes (%) (Auto) 7.5, Eosinophils (%) (Auto) 1.8, Basophils (%) (Auto) 0.8, Neutrophils # (Auto) 9.3H, Lymphocytes # (Auto) 0.8L, Monocytes # (Auto) 0.9H, Eosinophils # (Auto) 0.2, Basophils # (Auto) 0.1, Nucleated Red Blood Cells % (auto) 0.0, Anion Gap 7L, Glomerular Filtration Rate > 60.0, Calcium Level 9.6, Total Bilirubin 0.7, Direct Bilirubin 0.4H, Aspartate Amino Transf (AST/SGOT) 31, Alanine Aminotransferase (ALT/SGPT) 22, Alkaline Phosphatase 107, Total Creatine Kinase 24L, Creatine Kinase MB < 1.0, Creatine Kinase MB Relative Index 4.17H, Troponin I 0.03, RM-Mwp-B-Type Natriuretic Peptide 2199H, Total Protein 6.4, Albumin 2.6L, Albumin/Globulin Ratio 0.7, Thyroid Stimulating Hormone (TSH) 2.110 IMAGING: Chest xray IMPRESSION: 1. Foci of increased consolidation demonstrated at the left lung base consistent with an interval focus of pneumonitis. 2. Ovoid focus of parenchymal opacity in the right upper lobe measures 2.8 by 0.8 cm. Finding may represent a focus of atelectasis although a mass of other etiology not excluded. CT correlation suggested. CT head IMPRESSION: 1. There has been little change from 03/27/2019. No acute interval intracranial process is identified. 2. Mild chronic ischemic white matter change and moderate atrophy. CT chest IMPRESSION: Diffuse bullous change with scattered atelectasis or scar which is similar to the prior study of 03/26/2019. There is diffuse bronchial wall thickening which appears slightly increased and endobronchial plugging in the left lower lobe with peripheral left lower lobe infiltrates and consolidation consistent with interval pneumonia. There is also diffuse reticulonodular tree-in-bud infiltrates which are slightly increased overall since the prior study and may reflect interstitial pneumonia. MICROBIOLOGY: Respiratory Virus Panel neg / Blood Culture, Received results pending ASSESSMENT: is an 85 yr old M w a hx of COPD, DM2, CKD3, DLP, HTN, & CAD who presented w c/o dyspnea and will be admitted for sepsis & acute COPD 2/2 PNA & rapid Afib. PLAN: 1 Sepsis 2/2 PNA Dyspnea likely 2/2 PNA Plan: telemetry / continuous pulse ox & supplemental O2/ f/u sputum culture, strep pneumo, legionella / f/u blood cx,/ target MAP at of least 65 to 70 / f/u Is and Os with target UOP of at least 0.5 ml/kg/H / f/u [id number] w target serum glucose 140-180 while acutely ill / Ceftriaxone + azithromycin / Acetaminophen PRN for fever /per 2019 IDSA/ATS guidelines for CAP will not check procalcitonin to distinguish between viral and bacterial pathogens 2 Rapid A Fib RVR 2/2 sepsis Plan: telemetry / f/u serial Trops to r/o VT, TSH & Mg & f/u repeat Echo (last Echo in 2019 unremarkable) / diltiazem drip & c/w Eliquis 3 Acute COPD 2/2 PNA Plan: nebs & steroids / abx as above 6 IDDM2 Plan: diabetic diet / f/u accuchecks / hypoglycemia protocol / sliding scale insulin / hold oral anti-glycemic / f/u A1C / long acting insulin 30 units QHS 7 Chronic kidney disease stage III 8 Dyslipidemia Plan: Fenofibrate 9 Essential HTN Plan: Amlodipine on hold while on diltiazem DVT px n/a non AC Dispo: home after at least 2 midnights stay Home Medications Scheduled Amlodipine Besylate (Amlodipine Besylate) 2.5 Mg Tablet, 2.5 MG PO DAILY Apixaban (Eliquis) 5 Mg Tablet, 5 MG PO BID Digoxin (Digoxin) 125 Mcg Tablet, 0.125 MG PO DAILY Doxycycline Hyclate (Doxycycline Hyclate) 100 Mg Tablet, 100 MG PO BID Duloxetine Hcl (Duloxetine HCl) 60 Mg Cap, 60 MG PO DAILY Ergocalciferol (Vitamin D2) (Vitamin D2) 50,000 Units Cap, 50,000 UNITS PO 1XWK TAKES ON FRIDAY Fenofibrate Nanocrystallized (Fenofibrate) 145 Mg Tablet, 145 MG PO DAILY Insulin Detemir (Levemir Flextouch) 100 Unit/Ml Inj, 30 UNIT SC QHS Insulin Human Lispro (Humalog) 100 Unit/1 Ml Vial, 0 UNITS SC AC Insulin Human Lispro (Humalog) 100 Unit/1 Ml Vial, 0 UNITS SC QHS Ipratropium/Albuterol Sulfate (Iprat-Albut 0.5-3(2.5) mg/3 ml) 1 Lia Lia, 1 VIAL NEB Q4H Metoprolol Tartrate (Metoprolol Tartrate) 25 Mg Tablet, 25 MG PO BID Omeprazole (Omeprazole) 20 Mg Cap, 20 MG PO QHS Salmeterol/Fluticasone (Advair 250-50 Diskus) 14 Puff/Inhaler Aerp, 1 PUFF INH BID Tiotropium [place] (Spiriva) 18 Mcg Cap, 1 PUFF INH DAILY Scheduled PRN Magnesium Hydroxide (Milk of Magnesia) 400 Mg/5 Ml Oral.susp, 30 ML PO DAILY PRN for CONSTIPATION Allergies Coded Allergies: No Known Allergies (Verified , 03/06/04) A-FIB/CHADSVASC A-FIB History Current/History of A-Fib/PAF?: No Current PO Anticoag Therapy: No YVETTE SHIEKH MD Nov 04, 2020 01:38
[2020-11-04] MEDS ORDERED: GLUCOSE 4GM CHEW TABLET PO PRN (04:00)
[2020-11-04] MEDS ORDERED: GLUCAGON INJ 1MG VIAL SC PRN (04:00)
[2020-11-04 04:02] LABS: MAGNESIUM LEVEL 1.8 MG/DL (1.8-2.4); THYROID STIMULATING HORMONE 1.94 uIU/ML (0.358-3.740)
[2020-11-04] MEDS: cefTRIAXone SOD 1 GM in D5W MINI-BAG PLUS 50 ML IV SCH (04:10)
[2020-11-04] MEDS: HumaLOG INSULIN (NovoLOG) PER UNIT SC SCH ×4 (06:00→20:18)
[2020-11-04] MEDS: AZITHROMYCIN INJ 500 MG, VIAL MATE ADAPTER 1 EACH in NS 250 ML IV SCH (06:08)
[2020-11-04] MEDS ORDERED: diltiaZEM 125 MG in NS 100 ML IV SCH ×3 (06:10→07:40)
[2020-11-04 06:16] LABS: HEMATOCRIT 40.9 % (42.0-52.0); HEMOGLOBIN 12.8 g/dl (13.5-17.5); MEAN CORPUSCULAR HEMOGLOBIN 28.7 pg (27.0-33.0); MEAN CORPUSCULAR HGB CONC 31.3 g/dl (32.0-36.5); MEAN CORPUSCULAR VOLUME 91.7 fl (80.0-96.0); PLATELET COUNT, AUTOMATED 314 10^3/uL (150-450); RED BLOOD COUNT 4.46 10^6/uL (4.30-6.10)
[2020-11-04 06:44] LABS: BLOOD UREA NITROGEN 28 MG/DL (7-18); CALCIUM LEVEL 9.1 MG/DL (8.8-10.2); CARBON DIOXIDE LEVEL 31 MEQ/L (21-32); CHLORIDE LEVEL 103 MEQ/L (98-107); CREATININE FOR GFR 0.93 MG/DL (0.70-1.30); GLOMERULAR FILTRATION RATE > 60.0 (>35); GLUCOSE, FASTING 183 MG/DL (70-100); POTASSIUM SERUM 4.1 MEQ/L (3.5-5.1); SODIUM LEVEL 139 MEQ/L (136-145)
[2020-11-04] MEDS ORDERED: methylPREDNISolone 125MG 2ML VIAL IV STA (06:44)
[2020-11-04] MEDS ORDERED: ALBUTEROL SULFATE 2.5 MG/0.5 ML INH NEB SOLN NEB PRN (06:45)
[2020-11-04] MEDS: APIXABAN 5 MG TAB (ELIQUIS) PO SCH ×2 (08:37→20:17)
[2020-11-04] MEDS: PANTOPRAZOLE 40MG TAB (PROTONIX) PO SCH (08:37)
[2020-11-04] MEDS: FENOFIBRATE 145 MG TAB (TRICOR) PO SCH (08:37)
[2020-11-04] MEDS: DULoxetine 30 MG CAP (CYMBALTA) PO SCH (08:38)
--- NOTE | 2020-11-04 09:39 | ECGEPIP ---
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
[2020-11-04] MEDS ORDERED: DIGOXIN INJ 0.5 MG/2 ML AMP (J1160) IV STA (10:10)
[2020-11-04] MEDS: METOPROLOL 5 MG/5 ML VIAL IV SCH ×3 (10:20→11:08)
[2020-11-04] MEDS: IPRATROPIUM 0.5MG/ALBUTEROL 2.5MG INH SOL UD 3ML (DUONEB) NEB SCH ×3 (10:25→20:14)
[2020-11-04] MEDS: TIOTROPIUM INHALER/CAPSULE (SPIRIVA) INH SCH (11:28)
[2020-11-04] MEDS ORDERED: METOPROLOL 5 MG/5 ML VIAL IV STA (14:18)
--- NOTE | 2020-11-04 14:46 | IPNPDOC ---
Date Seen The patient was seen on 11/04/20. Progress Note SUBJECTIVE: Patient was seen and examined at bedside. In afib with RVR on playground monitor, HR 150s. Denies chest pain, SOB, palpitaitons. he is alert and oriented x 3 but visibly weak. OBJECTIVE PHYSICAL EXAMINATION: VITAL SIGNS: please see below General: NAD, comfortable HEENT: PERRLA, EOMI, sclerae clear Neck: supple, normal ROM, no JVD Respiratory: lungs CTAB, no wheeze, no rales, no crackles CVS: RRR, normal S1, S2, no murmurs Abdo: soft, no masses, no hepatosplenomegaly, BS+, no rebound tenderness Extremities: trace edema, pulses 2+ MSK: no joint deformities, normal ROM Neuro: no focal neuro deficits, moving all 4 extremities, CN2-12 intact. Strength 5/5 in all 4 extremities. No nystagmus. Psych: calm, cooperative, AAO x 3 LABORATORY DATA, IMAGING STUDIES, MICROBIOLOGY: Please see below. Echocardiogram: completed 2D echo n 11/04/20 - prelim read given verbally by Dr. Hernandez. Give rapid rate, difficult to estimate LVEF, but appears normal - marked LA dilation - borderline pulmonary hypertension - L ventricular diastolic dysfunction - early hypertensive changes DVT prophylaxis ordered?: eliquis ASSESSMENT AND PLAN: is an 85 yr old M w a hx of COPD, DM2, CKD3, DLP, HTN, & CAD who presented w c/o dyspnea and will be admitted for sepsis & acute COPD 2/2 PNA & rapid Afib. PLAN: #Sepsis 2/2 PNA #Dyspnea likely 2/2 PNA and afib w RVR telemetry Continuous pulse ox & supplemental O2 f/u sputum culture, strep pneumo, legionella f/u blood cx - c/w Ceftriaxone + azithromycin # Afib with RVR - obtained 2D echo as above - L atrial dilation likely contributing to afib wtih RVR along with sepsis - given acute diastolic congestive heart failure, will stop cardizem drip - D/w Dr. Hernandez. Recommends metoprolol 5m IV (up to 3 doses), digoxin 0.5 mg IV - transition to PO metoprolol with digoxin once rate controlled # Acute COPD 2/2 PNA = nebs & steroids # DM2 - ISS, FBSB AC and HS - hypoglycemic precaution # Chronic kidney disease stage III # Dyslipidemia - Fenofibrate # Hypertension - Amlodipine on hold while on diltiazem DVT ppx: c/w eliquis Dispo: home after at least 2 midnights stay VS, I&O, 24H, Fishbone Vital Signs/I&O Vital Signs Date Time Temp Pulse Resp B/P (MAP) Pulse Ox O2 Delivery O2 Flow Rate FiO2 11/04/20 12:30 86 145/97 (113) 97 11/04/20 12:00 97.2 20 Nasal Cannula 4.0 11/03/20 20:45 96 I&O- Last 24 Hours up to 6 AM 11/04/20 05:59 Intake Total 100 ml Balance 100 ml Laboratory Data 24H LABS Laboratory Tests 2 11/03/20 22:07: Prothrombin Time 13.9, Prothromb Time International Ratio 1.05, Activated Partial Thromboplast Time 27.4, Lactic Acid Level 1.7 11/03/20 22:08: Immature Granulocyte % (Auto) 0.4, Neutrophils (%) (Auto) 82.7H, Lymphocytes (%) (Auto) 6.8L, Monocytes (%) (Auto) 7.5, Eosinophils (%) (Auto) 1.8, Basophils (%) (Auto) 0.8, Neutrophils # (Auto) 9.3H, Lymphocytes # (Auto) 0.8L, Monocytes # (Auto) 0.9H, Eosinophils # (Auto) 0.2, Basophils # (Auto) 0.1, Nucleated Red Blood Cells % (auto) 0.0, Anion Gap 7L, Glomerular Filtration Rate > 60.0, Calcium Level 9.6, Total Bilirubin 0.7, Direct Bilirubin 0.4H, Aspartate Amino Transf (AST/SGOT) 31, Alanine Aminotransferase (ALT/SGPT) 22, Alkaline Phosphatase 107, Total Creatine Kinase 24L, Creatine Kinase MB < 1.0, Creatine Kinase MB Relative Index 4.17H, Troponin I 0.03, RM-Cxt-R-Type Natriuretic Peptide 2199H, Total Protein 6.4, Albumin 2.6L, Albumin/Globulin Ratio 0.7, Thyroid Stimulating Hormone (TSH) 2.110 11/04/20 03:06: Thyroid Stimulating Hormone (TSH) 1.940, Magnesium Level 1.8 11/04/20 05:56: Nucleated Red Blood Cells % (auto) 0.0, Anion Gap 5L, Glomerular Filtration Rate > 60.0, Calcium Level 9.1, Troponin I 0.03 11/04/20 05:58: Methicillin-Resist S.aureus DNA PCR NOT DETECTED 11/04/20 06:06: Bedside Glucose (Misc Panel) 96 11/04/20 11:06: Bedside Glucose (Misc Panel) 157H 11/04/20 11:20: Troponin I 0.03 CBC/BMP Laboratory Tests 11/03/20 22:08 11/04/20 05:56 Microbiology Microbiology 11/03/20 Respiratory Virus Panel (PCR) (TEO) - Final, Complete 11/03/20 Blood Culture, Received Pending 11/03/20 Blood Culture, Received Pending RIGOBERTO VIDAL MD Nov 04, 2020 14:46
[2020-11-04] MEDS: METOPROLOL TART 25 MG TABLET PO SCH ×2 (14:49→20:18)
[2020-11-04] MEDS ORDERED: DIGOXIN INJ 0.5 MG/2 ML AMP (J1160) IV ONE (16:00)
--- NOTE | 2020-11-04 18:09 | SMCUROLCON ---
Urology Consultation General Date of Consultation 11/04/20 Reason For Consultation This patient is seen for Afib W/Rvr,Pneumonia,Sepsis and inability to insert Thomas catheter because of stricturing of the foreskin. History of Present Illness The patient is a 85-year-old male with a past medical history for phimosis. He was found at home covered in urine and feces admitted to the hospital. An attempt was made to pass a Thomas catheter because the patient was having difficulty voiding and incontinence. This is unsuccessful so a urology consult was called to help pass the catheter. There is no past history of urinary or prostate problems. Past Medical History Medical History COPD Diabetes mellitus Chronic kidney disease stage III Dyslipidemia Hypertension Coronary artery disease GERD Hemorrhoids Diverticulosis Surgical Hstory Incision and drainage of left hip wound Right humeral fracture repair Cholecystectomy Hernia repair Social History Social History Not obtainable Medications Current Medications Current Medications Medications (Trade) Dose Ordered Sig/Mata Route PRN Reason Start Time Stop Time Status Last Admin Dose Admin Acetaminophen (Tylenol Tab) 650 mg Q4H PRN PO PAIN OR FEVER 11/04/20 01:30 Al Hydrox/Mg Hydrox/Simethicone (Mylanta) 30 ml DAILY PRN PO DYSPEPSIA 11/04/20 01:30 Albuterol Sulfate (Proventil Neb) 2.5 mg Q1HP PRN NEB SHORTNESS OF BREATH 11/04/20 06:45 Albuterol/ Ipratropium (Duoneb (Ipr 0.5mg/Alb 2.5mg)) 3 ml RQ6H NEB 11/04/20 08:00 11/04/20 12:35 Amlodipine Besylate (Norvasc) 10 mg DAILY PO 11/04/20 09:00 11/04/20 06:39 DC Apixaban (Eliquis) 5 mg BID PO 11/04/20 09:00 11/04/20 08:37 Azithromycin 500 mg/IV Miscellaneous Supplies 1 each/ Sodium Chloride 255 ml @ 255 mls/hr Q24H IV 11/04/20 04:00 11/04/20 06:08 Ceftriaxone Sodium 1 gm/ Dextrose 50 ml @ 100 mls/hr Q24H IV 11/04/20 05:00 11/04/20 04:10 Dextrose (Dextrose 50%) 25 ml ASDIRECTED PRN IV SEE LABEL COMMENTS 11/04/20 04:00 Digoxin (Lanoxin) 0.125 mg DAILY PO 11/05/20 09:00 Digoxin (Lanoxin) 0.5 mg STAT STAT IV 11/04/20 10:10 11/04/20 10:12 DC 11/04/20 10:21 Diltiazem HCl (Cardizem) 10 mg STAT STAT IV 11/03/20 22:20 11/03/20 22:21 DC 11/03/20 23:01 Diltiazem HCl (Cardizem) 29 mg NOW IV 11/04/20 01:35 11/04/20 01:55 DC 11/04/20 03:00 Diltiazem HCl 125 mg/Sodium Chloride 125 ml @ 5 mls/hr Q24H IV 11/04/20 06:10 11/04/20 06:40 DC Diltiazem HCl 125 mg/Sodium Chloride 125 ml @ 5 mls/hr Q24H IV 11/04/20 06:45 11/04/20 08:36 Diltiazem HCl 125 mg/Sodium Chloride 125 ml @ 5 mls/hr Q24H IV 11/04/20 07:40 UNV Duloxetine HCl (Cymbalta) 60 mg DAILY PO 11/04/20 09:00 11/04/20 08:38 Fenofibrate (Tricor) 145 mg DAILY PO 11/04/20 09:00 11/04/20 08:37 Glucagon (Glucagon) 1 mg ASDIRECTED PRN SC SEE LABEL COMMENTS 11/04/20 04:00 Glucose (Glucose) 16 GM ASDIRECTED PRN PO SEE LABEL COMMENTS 11/04/20 04:00 Home Med (Med Rec Complete!) ASDIRECTED XX 11/03/20 22:45 11/03/20 22:43 DC Insulin Detemir (Levemir Insulin) 30 units QHS SC 11/04/20 21:00 Insulin Human Lispro (HumaLOG INSULIN) See Protocol Table Q6H SC 11/04/20 06:00 11/04/20 11:09 Magnesium Hydroxide (Milk Of Magnesia) 30 ml DAILY PRN PO CONSTIPATION 11/04/20 01:30 Methylprednisolone (SOLUmedrol) 125 mg STAT STAT IV 11/04/20 06:44 11/04/20 06:51 DC 11/04/20 08:37 Metoprolol Tartrate (Lopressor) 5 mg Q5M IV 11/03/20 22:20 Cancel Metoprolol Tartrate (Lopressor) 5 mg Q5M IV 11/04/20 10:15 11/04/20 10:26 DC 11/04/20 11:08 Metoprolol Tartrate (Lopressor) 5 mg STAT STAT IV 11/04/20 14:18 11/04/20 14:19 DC Metoprolol Tartrate (Lopressor) 25 mg Q6H PO 11/04/20 15:00 11/04/20 14:49 Pantoprazole Sodium (Protonix) 40 mg DAILY PO 11/04/20 09:00 11/04/20 08:37 Prednisone (Deltasone) 40 mg DAILY PO 11/05/20 09:00 Tiotropium [place] (Spiriva Handihaler) 1 inhalation DAILY@0800 INH 11/04/20 08:00 11/04/20 11:28 Allergies Allergies: Coded Allergies: No Known Allergies (Verified , 03/06/04) Review of Systems General: Reports: Normal Appetite; Denies: Fatigue, Malaise Constitutional: Denies: Fever, Chills, Sweats, Weakness, Malaise Genitourinary: Denies: Dysuria, Frequency, Incontinence, Hematuria Physical Examination General Exam: Alert, No Acute Distress EYE EXAM: PERRLA, Conjunctiva & lids normal, EOMI; No: Sclera icteric ENT EXAM: Atraumatic, Mucous membr. moist/pink, Pharynx Normal Neck Exam: Supple; No: JVD, thyromegaly Abdomen Exam: Normal Bowel Sounds, Soft; No: Tenderness, Hepatospenomegaly Male Exam The penis is uncircumcised with a very severe and long phimosis of the foreskin which cannot be retracted. Scrotum testicles and epididymides perineum are normal Vital Signs/I&O Vital Signs Date Time Temp Pulse Resp B/P (MAP) Pulse Ox O2 Delivery O2 Flow Rate FiO2 11/04/20 14:49 109 11/04/20 14:49 135/101 11/04/20 12:30 97 11/04/20 12:00 97.2 20 Nasal Cannula 4.0 11/03/20 20:45 96 I&O- Last 24 Hours up to 6 AM 11/04/20 06:00 Intake Total 150 ml Output Total 125 ml Balance 25 ml Laboratory Data 24H Labs Laboratory Tests 2 11/03/20 22:07: Prothrombin Time 13.9, Prothromb Time International Ratio 1.05, Activated Partial Thromboplast Time 27.4, Lactic Acid Level 1.7 11/03/20 22:08: Immature Granulocyte % (Auto) 0.4, Neutrophils (%) (Auto) 82.7H, Lymphocytes (%) (Auto) 6.8L, Monocytes (%) (Auto) 7.5, Eosinophils (%) (Auto) 1.8, Basophils (%) (Auto) 0.8, Neutrophils # (Auto) 9.3H, Lymphocytes # (Auto) 0.8L, Monocytes # (Auto) 0.9H, Eosinophils # (Auto) 0.2, Basophils # (Auto) 0.1, Nucleated Red Bl ood Cells % (auto) 0.0, Anion Gap 7L, Glomerular Filtration Rate > 60.0, Calcium Level 9.6, Total Bilirubin 0.7, Direct Bilirubin 0.4H, Aspartate Amino Transf (AST/SGOT) 31, Alanine Aminotransferase (ALT/SGPT) 22, Alkaline Phosphatase 107, Total Creatine Kinase 24L, Creatine Kinase MB < 1.0, Creatine Kinase MB Relative Index 4.17H, Troponin I 0.03, SA-Jgs-F-Type Natriuretic Peptide 2199H, Total Pr otein 6.4, Albumin 2.6L, Albumin/Globulin Ratio 0.7, Thyroid Stimulating Hormone (TSH) 2.110 11/04/20 03:06: Thyroid Stimulating Hormone (TSH) 1.940, Magnesium Level 1.8 11/04/20 05:56: Nucleated Red Blood Cells % (auto) 0.0, Anion Gap 5L, Glomerular Filtration Rate > 60.0, Calcium Level 9.1, Troponin I 0.03 11/04/20 05:58: Methicillin-Resist S.aureus DNA PCR NOT DETECTED 11/04/20 06:06: Bedside Glucose (Misc Panel) 96 11/04/20 11:06: Bedside Glucose (Misc Panel) 157H 11/04/20 11:20: Troponin I 0.03 CBC/BMP Laboratory Tests 11/03/20 22:08 11/04/20 05:56 Microbiology Microbiology 11/03/20 Respiratory Virus Panel (PCR) (TEO) - Final, Complete 11/03/20 Blood Culture, Received Pending 11/03/20 Blood Culture, Received Pending Assessment Severe preputial phimosis Plan An attempt was made to pass a 16 Nigerien Thomas catheter unsuccessfully. Passing a hemostat was also equally unsuccessful. The urethra was finally canalized with a filiform and the foreskin was dilated with followers up to 18 Nigerien. A 12 Nigerien catheter was then able to be inserted into the urethra and passed into the bladder. There is no urine obtained since the patient had recently voided. The balloon was inflated with 10 mL and the catheter irrigated to make sure it was in the right place. Vigorous and connected to closed drainage. At this point catheter should be left in place until the patient is more medically stable. At some point, he will need a circumcision which can be done as an outpatient. ROB BUTTERFIELD MD Nov 04, 2020 18:09
[2020-11-04] MEDS: LEVEMIR (INSULIN DETEMIR) 1 UNITS/0.01ML SC SCH (20:19)
[2020-11-05] VITALS (10 sets, daily range): BP systolic 113–139; BP diastolic 51–87
[2020-11-05] MEDS: IPRATROPIUM 0.5MG/ALBUTEROL 2.5MG INH SOL UD 3ML (DUONEB) NEB SCH ×4 (01:21→19:51)
[2020-11-05] MEDS: AZITHROMYCIN INJ 500 MG, VIAL MATE ADAPTER 1 EACH in NS 250 ML IV SCH (03:02)
[2020-11-05] MEDS: METOPROLOL TART 25 MG TABLET PO SCH ×3 (03:02→20:45)
[2020-11-05] MEDS: cefTRIAXone SOD 1 GM in D5W MINI-BAG PLUS 50 ML IV SCH (04:41)
[2020-11-05 05:14] LABS: HEMATOCRIT 33.7 % (42.0-52.0); HEMOGLOBIN 10.7 g/dl (13.5-17.5); MEAN CORPUSCULAR HGB CONC 31.8 g/dl (32.0-36.5); MEAN CORPUSCULAR VOLUME 91.3 fl (80.0-96.0); PLATELET COUNT, AUTOMATED 294 10^3/uL (150-450); RED BLOOD COUNT 3.69 10^6/uL (4.30-6.10); WHITE BLOOD COUNT 6.3 10^3/uL (4.0-10.0)
[2020-11-05 05:53] LABS: BLOOD UREA NITROGEN 33 MG/DL (7-18); CALCIUM LEVEL 8.8 MG/DL (8.8-10.2); CARBON DIOXIDE LEVEL 28 MEQ/L (21-32); CHLORIDE LEVEL 104 MEQ/L (98-107); CREATININE FOR GFR 0.89 MG/DL (0.70-1.30); DIGOXIN LEVEL 1.5 NG/ML (0.5-2.0); GLOMERULAR FILTRATION RATE > 60.0 (>35); GLUCOSE, FASTING 111 MG/DL (70-100); POTASSIUM SERUM 4.2 MEQ/L (3.5-5.1); SODIUM LEVEL 138 MEQ/L (136-145)
[2020-11-05] MEDS: HumaLOG INSULIN (NovoLOG) PER UNIT SC SCH ×4 (07:19→20:34)
[2020-11-05] MEDS: DIGOXIN 0.125 MG TAB PO SCH (08:19)
[2020-11-05] MEDS: FENOFIBRATE 145 MG TAB (TRICOR) PO SCH (08:19)
[2020-11-05] MEDS: predniSONE 20 MG TAB PO SCH (08:19)
[2020-11-05] MEDS: DULoxetine 30 MG CAP (CYMBALTA) PO SCH (08:20)
[2020-11-05] MEDS: APIXABAN 5 MG TAB (ELIQUIS) PO SCH ×2 (08:20→20:33)
[2020-11-05] MEDS: PANTOPRAZOLE 40MG TAB (PROTONIX) PO SCH (08:20)
[2020-11-05] MEDS: TIOTROPIUM INHALER/CAPSULE (SPIRIVA) INH SCH (09:21)
--- NOTE | 2020-11-05 11:12 | IPNPDOC ---
Date Seen The patient was seen on 11/05/20. Progress Note SUBJECTIVE: Patient was seen and examined at bedside this morning. He is alert and oriented 2. 3. He denies any chest. There is a breath, palpitations, nausea, vomiting, diarrhea or fevers. He has no dysuria. He doesn't report any diarrhea. He did pull out his Thomas overnight due to confusion. He does not remember doing this. Vital signs are stable. Heart rate has been well controlled on current regimen. OBJECTIVE PHYSICAL EXAMINATION: VITAL SIGNS: please see below General: NAD, comfortable HEENT: PERRLA, EOMI, sclerae clear Neck: supple, normal ROM, no JVD Respiratory: lungs CTAB, no wheeze, no rales, no crackles CVS: RRR, normal S1, S2, no murmurs Abdo: soft, no masses, no hepatosplenomegaly, BS+, no rebound tenderness Extremities: trace edema, pulses 2+ MSK: no joint deformities, normal ROM Neuro: no focal neuro deficits, moving all 4 extremities, CN2-12 intact. Strength 5/5 in all 4 extremities. No nystagmus. Psych: calm, cooperative, AAO x 3 LABORATORY DATA, IMAGING STUDIES, MICROBIOLOGY: Please see below. Echocardiogram: completed 2D echo n 11/04/20 - prelim read given verbally by Dr. Hernandez. Give rapid rate, difficult to estimate LVEF, but appears normal - marked LA dilation - borderline pulmonary hypertension - L ventricular diastolic dysfunction - early hypertensive changes DVT prophylaxis ordered?: eliquis ASSESSMENT AND PLAN: is an 85 yr old M w a hx of COPD, DM2, CKD3, DLP, HTN, & CAD who presented w c/o dyspnea and will be admitted for sepsis & acute COPD 2/2 PNA & rapid Afib. PLAN: #Sepsis 2/2 PNA #Dyspnea likely 2/2 PNA and afib w RVR - telemetry - Continuous pulse ox & supplemental O2 - blood cultures prelim negative after 24 hours - MRSA screen negative - pending legionella, strep pneumo ags. Pending sputum culture - c/w ceftriaxone and azithromycin # Afib with RVR - obtained 2D echo as above - L atrial dilation likely contributing to afib wtih RVR along with sepsis - given acute diastolic congestive heart failure, will stop cardizem drip - D/w Dr. Hernandez. Recommends metoprolol 5m IV (up to 3 doses), digoxin 0.5 mg IV - rate currently well controlled on digoxin 0.125 mg daily (dig level 1.5), and metoprolol tartrate 25 mg q6h PO - will transition to metoprolol 25 mg po BID - monitor on tele - downgrade to med surg # Acute COPD 2/2 PNA - nebs & steroids - c/w cetriaxone and azithromycin - MRSA screen negative # DM2 - ISS, FBSB AC and HS - hypoglycemic precaution # Chronic kidney disease stage III - Cr currently < 1 - avoid nephrotoxins # Dyslipidemia - Fenofibrate # Hypertension - c/w metoprolol - resume amlodipine at 2.5 mg daily DVT ppx: c/w eliquis Dispo: home after at least 2 midnights stay. PT/OT ordered. VS, I&O, 24H, Fishbone Vital Signs/I&O Vital Signs Date Time Temp Pulse Resp B/P (MAP) Pulse Ox O2 Delivery O2 Flow Rate FiO2 11/05/20 09:30 77 124/58 (80) 11/05/20 08:00 97.3 20 99 Nasal Cannula 3.0 11/03/20 20:45 96 I&O- Last 24 Hours up to 6 AM 11/05/20 05:59 Intake Total 610 ml Output Total 355 ml Balance 255 ml Laboratory Data 24H LABS Laboratory Tests 2 11/04/20 11:06: Bedside Glucose (Misc Panel) 157H 11/04/20 11:20: Troponin I 0.03 11/04/20 18:11: Bedside Glucose (Misc Panel) 203H 11/04/20 20:16: Bedside Glucose (Misc Panel) 129H 11/05/20 04:47: Nucleated Red Blood Cells % (auto) 0.0, Anion Gap 6L, Glomerular Filtration Rate > 60.0, Calcium Level 8.8, Digoxin Level 1.5 CBC/BMP Laboratory Tests 11/05/20 04:47 Microbiology Microbiology 11/03/20 Respiratory Virus Panel (PCR) (TEO) - Final, Complete 11/03/20 Blood Culture - Preliminary, Resulted No growth after 24 hours . All specim... 11/03/20 Blood Culture - Preliminary, Resulted No growth after 24 hours . All specim... RIGOBERTO VIDAL MD Nov 05, 2020 11:12
--- NOTE | 2020-11-05 13:01 | IPNPDOC ---
Subjective Review oF Systems Chief Complaint The patient is a 85-year-old male admitted with a reason for visit of Afib W/Rvr,Pneumonia,Sepsis. Events since Last Encounter Overnight, the patient managed to pull his brantley out with the balloon intact. Since then, he has been able to void several times. General: Reports: Normal Appetite; Denies: Fatigue, Malaise Constitutional: Denies: Fever, Chills, Sweats, Weakness, Malaise Gastrointestinal: Denies: Nausea, Vomiting, Abdominal Pain Genitourinary: Denies: Dysuria, Frequency, Incontinence, Hematuria Objective Physical Examination Eye Exam: PERRLA, Conjunctiva & lids normal, EOMI; No: Sclera icteric ABDOMEN EXAM: Normal bowel sounds, Soft; No: Tenderness, Hepatospenomegaly Vital Signs/I&O Vital Signs Date Time Temp Pulse Resp B/P (MAP) Pulse Ox O2 Delivery O2 Flow Rate FiO2 11/05/20 12:35 97.3 86 21 113/57 (75) 98 Nasal Cannula 3.0 11/03/20 20:45 96 I&O- Last 24 Hours up to 6 AM 11/05/20 06:00 Intake Total 560 ml Output Total 230 ml Balance 330 ml Laboratory Data Labs 24H Laboratory Tests 2 11/04/20 18:11: Bedside Glucose (Misc Panel) 203H 11/04/20 20:16: Bedside Glucose (Misc Panel) 129H 11/05/20 04:47: Nucleated Red Blood Cells % (auto) 0.0, Anion Gap 6L, Glomerular Filtration Rate > 60.0, Calcium Level 8.8, Digoxin Level 1.5 11/05/20 11:50: Bedside Glucose (Misc Panel) 133H CBC/BMP Laboratory Tests 11/05/20 04:47 FSBS Laboratory Tests Test 11/04/20 18:11 11/04/20 20:16 11/05/20 11:50 Range/Units Bedside Glucose (Misc Panel) 203 129 133 83-110 MG/DL Microbiology Microbiology 11/03/20 Respiratory Virus Panel (PCR) (TEO) - Final, Complete 11/03/20 Blood Culture - Preliminary, Resulted No growth after 24 hours . All specim... 11/03/20 Blood Culture - Preliminary, Resulted No growth after 24 hours . All specim... Assessment/Plan Date Seen The patient was seen on 11/05/20. Plan/VTE VTE Prophylaxis Ordered?: No Plan Since the patient is able to void, I recommend against inserting a Brantley catheter since he will likely only dislodge it one more time. If He should have any further urinary problems, please contact me ROB BUTTERFIELD MD Nov 05, 2020 13:01
[2020-11-05] MEDS: LEVEMIR (INSULIN DETEMIR) 1 UNITS/0.01ML SC SCH (20:35)
[2020-11-05] MEDS: SODIUM CHLORIDE 0.9% INJ 10 ML SYR IV SCH ×2 (20:46→22:00)
[2020-11-06] MEDS: IPRATROPIUM 0.5MG/ALBUTEROL 2.5MG INH SOL UD 3ML (DUONEB) NEB SCH ×4 (01:50→20:32)
[2020-11-06] MEDS: AZITHROMYCIN INJ 500 MG, VIAL MATE ADAPTER 1 EACH in NS 250 ML IV SCH (03:20)
[2020-11-06] MEDS: cefTRIAXone SOD 1 GM in D5W MINI-BAG PLUS 50 ML IV SCH (04:48)
[2020-11-06] MEDS: SODIUM CHLORIDE 0.9% INJ 10 ML SYR IV SCH ×2 (05:46→17:31)
[2020-11-06 06:00] VITALS: BP 139/86
[2020-11-06] MEDS: DEXTROSE 50% 50 ML SYRINGE IV PRN ×2 (06:01→11:44)
--- NOTE | 2020-11-06 07:11 | ECHO ---
DATE OF PROCEDURE: 11/04/2020 Age: 85 Gender: Male Height: 70 inches Weight: 158 pounds Body surface area: 1.89 m2 PATIENT LOCATION: Inpatient ICU Room 3202. REFERRING PHYSICIAN: Shade Brown MD. INDICATION: Paroxysmal atrial fibrillation. Abnormal EKG. MEASUREMENTS: 2D Measurements: RV 3.1 cm LV 4.3 cm Septum 1.1 cm Posterior wall 1.0 cm Aortic Root 3.7 cm LA 4.0 cm LVEF 55-60% Doppler Measurements: AV 1.71 m/s LVOT 0.91 m/s MV-E 77, A 102, E/A ratio 0.8 Early mitral deceleration time 195 msec E prime medial 4.7, A prime medial 9, E prime lateral 5.4 Average E/E prime ratio 15.2/PCWP 20.8 mmHg RVSP 32 mmHg IVC 1.2 cm COMMENTS: Normal sinus rhythm without intraventricular conduction disturbance. Frequent isolated PACs often occurring in a bigeminal pattern. Technically difficult study in light of the patients body habitus, but some diagnostically useful information was still obtained. M-mode and two-dimensional echocardiography was performed with pulsed, continuous wave, color flow, and tissue Doppler studies. Normal left ventricular size and wall thickness. 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 Borderline left atrial enlargement with LV diastolic dysfunction grade 1 and elevated estimated mean left atrial pressure. Normal right heart chamber sizes and motion with Doppler sign of borderline to mild pulmonary hypertension. Normal IVC size and collapse against an elevated central venous pressure. Normal aortic root diameter. At least mild aortic valvular sclerosis without functional abnormality. Mild mitral annular calcification with trace insufficiency. Normal appearing tricuspid valve with trace to very mild insufficiency. Could not detect any intracardiac mass or pericardial effusion. MTDD
[2020-11-06] MEDS: HumaLOG INSULIN (NovoLOG) PER UNIT SC SCH ×3 (07:30→16:36)
[2020-11-06] MEDS: DULoxetine 30 MG CAP (CYMBALTA) PO SCH (09:30)
[2020-11-06] MEDS: METOPROLOL TART 25 MG TABLET PO SCH (09:30)
[2020-11-06] MEDS: APIXABAN 5 MG TAB (ELIQUIS) PO SCH (09:30)
[2020-11-06] MEDS: PANTOPRAZOLE 40MG TAB (PROTONIX) PO SCH (09:30)
[2020-11-06] MEDS: DIGOXIN 0.125 MG TAB PO SCH (09:30)
[2020-11-06] MEDS: FENOFIBRATE 145 MG TAB (TRICOR) PO SCH (09:31)
[2020-11-06] MEDS: predniSONE 20 MG TAB PO SCH (09:31)
[2020-11-06 11:01] LABS: DIGOXIN LEVEL 1.4 NG/ML (0.5-2.0)
[2020-11-06] MEDS: TIOTROPIUM INHALER/CAPSULE (SPIRIVA) INH SCH (11:33)
[2020-11-06 14:00] VITALS: BP 108/57
[2020-11-06 16:11] LABS: BODY FLUID CULTURE Not indicated. (.); LEGIONELLA ANTIGEN URINE Negative (Negative); ORGANISM ID Not indicated. (.); SPECIMEN SOURCE Urine (.); URINE STREP PNEUMONIAE ANTIGEN Negative (Negative)
--- NOTE | 2020-11-06 17:41 | IPNPDOC ---
Date Seen The patient was seen on 11/06/20. Progress Note SUBJECTIVE: Patient was seen and examined at bedside this morning. He is alert and oriented 2. 3. He denies any chest. There is a breath, palpitations, nausea, vomiting, diarrhea or fevers. He has no dysuria. He doesn't report any diarrhea. He did pull out his Thomas overnight due to confusion. He does not remember doing this. Vital signs are stable. Heart rate has been well controlled on current regimen. OBJECTIVE PHYSICAL EXAMINATION: VITAL SIGNS: please see below General: NAD, comfortable HEENT: PERRLA, EOMI, sclerae clear Neck: supple, normal ROM, no JVD Respiratory: lungs CTAB, no wheeze, no rales, no crackles CVS: RRR, normal S1, S2, no murmurs Abdo: soft, no masses, no hepatosplenomegaly, BS+, no rebound tenderness Extremities: trace edema, pulses 2+ MSK: no joint deformities, normal ROM Neuro: no focal neuro deficits, moving all 4 extremities, CN2-12 intact. Strength 5/5 in all 4 extremities. No nystagmus. Psych: calm, cooperative, AAO x 3 LABORATORY DATA, IMAGING STUDIES, MICROBIOLOGY: Please see below. Echocardiogram: completed 2D echo n 11/04/20 - prelim read given verbally by Dr. Hernandez. Give rapid rate, difficult to estimate LVEF, but appears normal - marked LA dilation - borderline pulmonary hypertension - L ventricular diastolic dysfunction - early hypertensive changes DVT prophylaxis ordered?: eliquis ASSESSMENT AND PLAN: is an 85 yr old M w a hx of COPD, DM2, CKD3, DLP, HTN, & CAD who presented w c/o dyspnea and will be admitted for sepsis & acute COPD 2/2 PNA & rapid Afib. PLAN: #Sepsis 2/2 PNA #Dyspnea likely 2/2 PNA and afib w RVR - telemetry - Continuous pulse ox & supplemental O2 - blood cultures prelim negative after 24 hours - MRSA screen negative - pending legionella, strep pneumo ags. Pending sputum culture - patient is afebrile, without WBC - stop ceftriaxone, azithromycin - to complete 5 more days of doxycycline PO. # Afib with RVR - obtained 2D echo as above - L atrial dilation likely contributing to afib wtih RVR along with sepsis - given acute diastolic congestive heart failure, will stop cardizem ip - D/w Dr. Hernandez. Recommends metoprolol 5m IV (up to 3 doses), digoxin 0.5 mg IV - rate currently well controlled on digoxin 0.125 mg daily (dig level 1.5), and metoprolol tartrate 25 mg q6h PO - will transition to metoprolol 25 mg po BID - monitor on tele - downgrade to med surg # Acute COPD 2/2 PNA - nebs & steroids - c/w cetriaxone and azithromycin - MRSA screen negative # DM2 - ISS, FBSB AC and HS - hypoglycemic precaution # Chronic kidney disease stage III - Cr currently < 1 - avoid nephrotoxins # Dyslipidemia - Fenofibrate # Hypertension - c/w metoprolol - resume amlodipine at 2.5 mg daily DVT ppx: c/w eliquis Dispo: home after at least 2 midnights stay. PT/OT ordered, recommending rehab after DC. VS, I&O, 24H, Fishbone Vital Signs/I&O Vital Signs Date Time Temp Pulse Resp B/P (MAP) Pulse Ox O2 Delivery O2 Flow Rate FiO2 11/06/20 14:00 96.7 76 16 108/57 (74) 96 Nasal Cannula 3.0 11/03/20 20:45 96 I&O- Last 24 Hours up to 6 AM 11/06/20 06:00 Intake Total 700 ml Output Total 0 ml Balance 700 ml Laboratory Data 24H LABS Laboratory Tests 2 11/05/20 20:33: Bedside Glucose (Misc Panel) 186H 11/06/20 05:26: Bedside Glucose (Misc Panel) 45L 11/06/20 05:29: Bedside Glucose (Misc Panel) 59L 11/06/20 05:53: Bedside Glucose Confirm (Misc) 55 11/06/20 05:56: Bedside Glucose (Misc Panel) 47L 11/06/20 06:09: Bedside Glucose Confirm (Misc) 145, Digoxin Level 1.4 11/06/20 06:18: Bedside Glucose (Misc Panel) 83 11/06/20 11:33: Bedside Glucose (Misc Panel) 45L 11/06/20 12:19: Bedside Glucose (Misc Panel) 107 11/06/20 16:33: Bedside Glucose (Misc Panel) 97 Microbiology Microbiology 11/03/20 Respiratory Virus Panel (PCR) (TEO) - Final, Complete 11/03/20 Blood Culture - Preliminary, Resulted No Growth after 48 hours. All Specime... 11/03/20 Blood Culture - Preliminary, Resulted No Growth after 48 hours. All Specime... RIGOBERTO VIDAL MD Nov 06, 2020 17:41
[2020-11-06 22:00] VITALS: BP 119/71
[2020-11-06] MEDS ORDERED: LEVEMIR (INSULIN DETEMIR) 1 UNITS/0.01ML SC ONE (23:50)
[2020-11-06] MEDS: LEVEMIR (INSULIN DETEMIR) 1 UNITS/0.01ML SC SCH (23:52)
[2020-11-07] MEDS: HumaLOG INSULIN (NovoLOG) PER UNIT SC SCH ×5 (00:02→22:15)
[2020-11-07] MEDS: METOPROLOL TART 25 MG TABLET PO SCH ×3 (00:24→22:15)
[2020-11-07] MEDS: APIXABAN 5 MG TAB (ELIQUIS) PO SCH ×3 (00:24→22:15)
[2020-11-07] MEDS: SODIUM CHLORIDE 0.9% INJ 10 ML SYR IV SCH ×4 (00:25→22:16)
[2020-11-07] MEDS: DOXYCYCLINE HYCLATE 100MG TABLET PO SCH ×3 (00:25→22:15)
[2020-11-07] MEDS: SODIUM CHLORIDE 0.9% INJ 10 ML SYR IV PRN ×8 (00:26→22:20)
[2020-11-07] MEDS: IPRATROPIUM 0.5MG/ALBUTEROL 2.5MG INH SOL UD 3ML (DUONEB) NEB SCH ×4 (02:00→19:31)
[2020-11-07 06:00] VITALS: BP 114/70
[2020-11-07] MEDS: TIOTROPIUM INHALER/CAPSULE (SPIRIVA) INH SCH (07:04)
[2020-11-07] MEDS: DULoxetine 30 MG CAP (CYMBALTA) PO SCH (08:40)
[2020-11-07] MEDS: FENOFIBRATE 145 MG TAB (TRICOR) PO SCH (08:40)
[2020-11-07] MEDS: predniSONE 20 MG TAB PO SCH (08:41)
[2020-11-07] MEDS: DIGOXIN 0.125 MG TAB PO SCH (08:41)
[2020-11-07] MEDS: PANTOPRAZOLE 40MG TAB (PROTONIX) PO SCH (08:42)
[2020-11-07] MEDS ORDERED: AZITHROMYCIN 250MG TABLET PO SCH (09:00)
[2020-11-07 09:13] LABS: HEMATOCRIT 36.9 % (42.0-52.0); HEMOGLOBIN 11.8 g/dl (13.5-17.5); MEAN CORPUSCULAR HEMOGLOBIN 28.7 pg (27.0-33.0); MEAN CORPUSCULAR VOLUME 89.8 fl (80.0-96.0); PLATELET COUNT, AUTOMATED 300 10^3/uL (150-450); RED BLOOD COUNT 4.11 10^6/uL (4.30-6.10)
[2020-11-07 09:39] LABS: ALBUMIN 2.5 GM/DL (3.2-5.2); ALT/SGPT 38 U/L (12-78); BILIRUBIN,TOTAL 0.3 MG/DL (0.2-1.0); BLOOD UREA NITROGEN 26 MG/DL (7-18); CARBON DIOXIDE LEVEL 33 MEQ/L (21-32); CHLORIDE LEVEL 101 MEQ/L (98-107); CREATININE FOR GFR 0.74 MG/DL (0.70-1.30); GLOMERULAR FILTRATION RATE > 60.0 (>35); GLUCOSE, FASTING 58 MG/DL (70-100); POTASSIUM SERUM 4.1 MEQ/L (3.5-5.1); SODIUM LEVEL 138 MEQ/L (136-145); TOTAL PROTEIN 5.5 GM/DL (6.4-8.2)
[2020-11-07 14:00] VITALS: BP 112/58
--- NOTE | 2020-11-07 18:18 | IPNPDOC ---
Date Seen The patient was seen on 11/07/20. Progress Note SUBJECTIVE: Tired this AM. Labs unremarkable, afebrile. Swallowing evaluation: mod oropharyngeal dysphagia, diet changed. ARU screen placed. Currently denies chest pain, SOB, fevers, chills. OBJECTIVE: PHYSICAL EXAMINATION: VITAL SIGNS: please see below General: NAD, comfortable, AAOx3 HEENT: PERRLA, EOMI, sclerae clear Neck: supple, normal ROM, no JVD Respiratory: lungs CTAB, no wheeze, no rales, no crackles CVS: RRR, normal S1, S2, no murmurs Abdo: soft, no masses, no hepatosplenomegaly, BS+, no rebound tenderness Extremities: trace edema, pulses 2+ MSK: no joint deformities, normal ROM Neuro: no focal neuro deficits, CN2-12 intact. generalized weakness 4/5 in all 4 extremities. No nystagmus. LABORATORY DATA, IMAGING STUDIES, MICROBIOLOGY: Please see below. Echocardiogram 11/04/20: EF 55-60% Normal left ventricular size and wall thickness. 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 Borderline left atrial enlargement with LV diastolic dysfunction grade 1 and elevated estimated mean left atrial pressure. Normal right heart chamber sizes and motion with Doppler sign of borderline to mild pulmonary hypertension. Normal IVC size and collapse against an elevated central venous pressure. Normal aortic root diameter. At least mild aortic valvular sclerosis without functional abnormality. Mild mitral annular calcification with trace insufficiency. Normal appearing tricuspid valve with trace to very mild insufficiency. Could not detect any intracardiac mass or pericardial effusion. ASSESSMENT: is an 85 yr old M w a hx of COPD, DM2, CKD3, DLP, HTN, & CAD who presented w c/o dyspnea and will be admitted for sepsis & acute COPD 2/2 PNA & rapid Afib. PLAN: Shortness of breath likely 2/2 to PNA- resolved sepsis -Currently on 3 L NC, home amount. Denies incr chest pain, SOB -WBC wnl, afebrile. -BCx NG -Strep pneumoniae, legionella studies- neg -MRSA neg -No sputum cx -To complete 4 additional days of PO doxycycline Atrial fibrillation likely 2/2 to L atrial dilation, resolved RVR could have been 2/2 to infection above -HR 70-90, controlled. -Echocardiogram from 11/04/20 above -C/w digoxin 0.125 mg daily (dig level 1.4), metoprolol 25 mg po BID -Monitor on tele Dysphagia -moderate oropharyngeal dysphagia characterized by prolonged mastication with solids and cough following intake of thin liquids and nectar thick liquids. -ST recommend: Level 2/mech soft diet, Honey thick liquids, Meds with puree assist, ST services 3-5x wk to address strategy use for liquid tolerance and to address dysphagia Physical deconditioning likely 2/2 to acute illness above -PT: Pt required assist for bed mobility and transfers, noted to have trunk and BLE knee flexion with prolonged standing and inc fatigue. Pt uses 2L 02 at baseline and this therapist assisted with 02 line management this session. Pt appears to be below baseline and will benefit from cont rehab. -ARU screen placed DM2 -BS stable -ISS, FBSB AC and HS -hypoglycemic precaution Chronic kidney disease stage III -Cr wnl -avoid nephrotoxins Dyslipidemia -Fenofibrate Hypertension -c/w metoprolol, amlodipine DVT ppx -c/w eliquis Resolved: COPD exacerbation DISPOSITION: PT: recommending continued rehab. Plan undecided for discharge currently. VS, I&O, 24H, Fishbone Vital Signs/I&O Vital Signs Date Time Temp Pulse Resp B/P (MAP) Pulse Ox O2 Delivery O2 Flow Rate FiO2 11/07/20 14:00 97.4 90 14 112/58 (76) 99 Nasal Cannula 3.0 11/03/20 20:45 96 I&O- Last 24 Hours up to 6 AM 11/07/20 06:00 Intake Total 1265 ml Output Total 0 ml Balance 1265 ml Laboratory Data 24H LABS Laboratory Tests 2 11/06/20 19:54: Bedside Glucose (Misc Panel) 174H 11/07/20 00:01: Bedside Glucose (Misc Panel) 167H 11/07/20 06:35: Bedside Glucose (Misc Panel) 92 11/07/20 08:53: Nucleated Red Blood Cells % (auto) 0.0, Anion Gap 4L, Glomerular Filtration Rate > 60.0, Calcium Level 9.0, Total Bilirubin 0.3, Aspartate Amino Transf (AST/SGOT) 40H, Alanine Aminotransferase (ALT/SGPT) 38, Alkaline Phosphatase 92, Total Protein 5.5L, Albumin 2.5L, Albumin/Globulin Ratio 0.8 11/07/20 12:03: Bedside Glucose (Misc Panel) 97 11/07/20 16:52: Bedside Glucose (Misc Panel) 199H CBC/BMP Laboratory Tests 11/07/20 08:53 Microbiology Microbiology 11/03/20 Respiratory Virus Panel (PCR) (TEO) - Final, Complete 11/03/20 Blood Culture - Preliminary, Resulted No Growth after 72 hours. All specime... 11/03/20 Blood Culture - Preliminary, Resulted No Growth after 72 hours. All specime... Current Medications Current Medications Medications (Trade) Dose Ordered Sig/Mata Route PRN Reason Start Time Stop Time Status Last Admin Dose Admin Acetaminophen (Tylenol Tab) 650 mg Q4H PRN PO PAIN OR FEVER 11/04/20 01:30 Al Hydrox/Mg Hydrox/Simethicone (Mylanta) 30 ml DAILY PRN PO DYSPEPSIA 11/04/20 01:30 Albuterol Sulfate (Proventil Neb) 2.5 mg Q1HP PRN NEB SHORTNESS OF BREATH 11/04/20 06:45 Albuterol/ Ipratropium (Duoneb (Ipr 0.5mg/Alb 2.5mg)) 3 ml RQ6H NEB 11/04/20 08:00 11/07/20 14:08 Amlodipine Besylate (Norvasc) 2.5 mg DAILY PO 11/05/20 09:00 11/07/20 08:42 Amlodipine Besylate (Norvasc) 10 mg DAILY PO 11/04/20 09:00 11/04/20 06:39 DC Apixaban (Eliquis) 5 mg BID PO 11/04/20 09:00 11/07/20 08:40 Azithromycin (Zithromax Tab) 500 mg DAILY PO 11/07/20 09:00 11/06/20 17:40 DC Azithromycin 500 mg/IV Miscellaneous Supplies 1 each/ Sodium Chloride 255 ml @ 255 mls/hr Q24H IV 11/04/20 04:00 11/06/20 10:30 DC 11/06/20 03:20 Ceftriaxone Sodium 1 gm/ Dextrose 50 ml @ 100 mls/hr Q24H IV 11/04/20 05:00 11/06/20 17:40 DC 11/06/20 04:48 Dextrose (Dextrose 50%) 25 ml ASDIRECTED PRN IV SEE LABEL COMMENTS 11/04/20 04:00 11/06/20 11:44 Digoxin (Lanoxin) 0.125 mg DAILY PO 11/05/20 09:00 11/07/20 08:41 Digoxin (Lanoxin) 0.5 mg STAT STAT IV 11/04/20 10:10 11/04/20 10:12 DC 11/04/20 10:21 Diltiazem HCl (Cardizem) 10 mg STAT STAT IV 11/03/20 22:20 11/03/20 22:21 DC 11/03/20 23:01 Diltiazem HCl (Cardizem) 29 mg NOW IV 11/04/20 01:35 11/04/20 01:55 DC 11/04/20 03:00 Diltiazem HCl 125 mg/Sodium Chloride 125 ml @ 5 mls/hr Q24H IV 11/04/20 06:10 11/04/20 06:40 DC Diltiazem HCl 125 mg/Sodium Chloride 125 ml @ 5 mls/hr Q24H IV 11/04/20 06:45 11/04/20 18:34 DC 11/04/20 08:36 Diltiazem HCl 125 mg/Sodium Chloride 125 ml @ 5 mls/hr Q24H IV 11/04/20 07:40 UNV Doxycycline Hyclate (Vibramycin) 100 mg BID PO 11/06/20 21:00 11/11/20 21:00 11/07/20 08:40 Duloxetine HCl (Cymbalta) 60 mg DAILY PO 11/04/20 09:00 11/07/20 08:40 Fenofibrate (Tricor) 145 mg DAILY PO 11/04/20 09:00 11/07/20 08:40 Glucagon (Glucagon) 1 mg ASDIRECTED PRN SC SEE LABEL COMMENTS 11/04/20 04:00 Glucose (Glucose) 16 GM ASDIRECTED PRN PO SEE LABEL COMMENTS 11/04/20 04:00 Heparin Sodium (Heparin Lock Flush 10units/ml) 10 units ASDIRECTED PRN IV SEE LABEL COMMENTS 11/05/20 19:10 11/07/20 15:38 Heparin Sodium (Heparin Lock Flush 10units/ml) 10 units HLF IV 11/05/20 22:00 11/07/20 15:37 Home Med (Med Rec Complete!) ASDIRECTED XX 11/03/20 22:45 11/03/20 22:43 DC Insulin Detemir (Levemir Insulin) 30 units QHS SC 11/04/20 21:00 11/05/20 20:35 Insulin Human Lispro (HumaLOG INSULIN) SEE PROTOCOL TABLE AC SC 11/05/20 07:30 11/07/20 17:44 Insulin Human Lispro (HumaLOG INSULIN) SEE PROTOCOL TABLE QHS TX 11/04/20 21:00 Insulin Human Lispro (HumaLOG INSULIN) See Protocol Table Q6H TX 11/04/20 06:00 11/04/20 19:57 DC 11/04/20 18:14 Magnesium Hydroxide (Milk Of Magnesia) 30 ml DAILY PRN PO CONSTIPATION 11/04/20 01:30 Methylprednisolone (SOLUmedrol) 125 mg STAT STAT IV 11/04/20 06:44 11/04/20 06:51 DC 11/04/20 08:37 Metoprolol Tartrate (Lopressor) 5 mg Q5M IV 11/03/20 22:20 Cancel Metoprolol Tartrate (Lopressor) 5 mg Q5M IV 11/04/20 10:15 11/04/20 10:26 DC 11/04/20 11:08 Metoprolol Tartrate (Lopressor) 5 mg STAT STAT IV 11/04/20 14:18 11/04/20 14:19 DC Metoprolol Tartrate (Lopressor) 25 mg BID PO 11/05/20 21:00 11/07/20 08:41 Metoprolol Tartrate (Lopressor) 25 mg Q6H PO 11/04/20 15:00 11/05/20 11:07 DC 11/05/20 08:20 Pantoprazole Sodium (Protonix) 40 mg DAILY PO 11/04/20 09:00 11/07/20 08:42 Prednisone (Deltasone) 40 mg DAILY PO 11/05/20 09:00 11/07/20 08:41 Sodium Chloride (Saline Lock Flush) 10 ml ASDIRECTED PRN IV SEE LABEL COMMENTS 11/05/20 19:10 11/07/20 15:38 Sodium Chloride (Saline Lock Flush) 10 ml SLF IV 11/05/20 22:00 11/07/20 15:38 Tiotropium Arnold (Spiriva Handihaler) 1 inhalation DAILY@0800 INH 11/04/20 08:00 11/07/20 07:04 Allergies Coded Allergies: No Known Allergies (Verified , 03/06/04) Ml Renteria MD Nov 07, 2020 18:18
[2020-11-07 22:00] VITALS: BP 118/61
[2020-11-07] MEDS: LEVEMIR (INSULIN DETEMIR) 1 UNITS/0.01ML SC SCH (22:16)
[2020-11-08] MEDS: IPRATROPIUM 0.5MG/ALBUTEROL 2.5MG INH SOL UD 3ML (DUONEB) NEB SCH ×3 (02:01→14:02)
[2020-11-08] MEDS: SODIUM CHLORIDE 0.9% INJ 10 ML SYR IV SCH (05:22)
[2020-11-08] MEDS: SODIUM CHLORIDE 0.9% INJ 10 ML SYR IV PRN (05:23)
[2020-11-08 05:41] LABS: HEMATOCRIT 35.9 % (42.0-52.0); HEMOGLOBIN 11.5 g/dl (13.5-17.5); MEAN CORPUSCULAR HEMOGLOBIN 28.6 pg (27.0-33.0); MEAN CORPUSCULAR VOLUME 89.3 fl (80.0-96.0); PLATELET COUNT, AUTOMATED 316 10^3/uL (150-450); RED BLOOD COUNT 4.02 10^6/uL (4.30-6.10); WHITE BLOOD COUNT 10.6 10^3/uL (4.0-10.0)
[2020-11-08 06:00] VITALS: BP 117/66
[2020-11-08 06:06] LABS: BLOOD UREA NITROGEN 23 MG/DL (7-18); CALCIUM LEVEL 9.4 MG/DL (8.8-10.2); CARBON DIOXIDE LEVEL 33 MEQ/L (21-32); CHLORIDE LEVEL 99 MEQ/L (98-107); CREATININE FOR GFR 0.66 MG/DL (0.70-1.30); GLOMERULAR FILTRATION RATE > 60.0 (>35); GLUCOSE, FASTING 82 MG/DL (70-100); POTASSIUM SERUM 4.1 MEQ/L (3.5-5.1); SODIUM LEVEL 137 MEQ/L (136-145)
[2020-11-08] MEDS: TIOTROPIUM INHALER/CAPSULE (SPIRIVA) INH SCH (07:14)
[2020-11-08] MEDS: HumaLOG INSULIN (NovoLOG) PER UNIT SC SCH ×2 (07:30→11:59)
[2020-11-08] MEDS: APIXABAN 5 MG TAB (ELIQUIS) PO SCH (08:39)
[2020-11-08] MEDS: FENOFIBRATE 145 MG TAB (TRICOR) PO SCH (08:40)
[2020-11-08] MEDS: predniSONE 20 MG TAB PO SCH (08:40)
[2020-11-08] MEDS: PANTOPRAZOLE 40MG TAB (PROTONIX) PO SCH (08:40)
[2020-11-08] MEDS: DOXYCYCLINE HYCLATE 100MG TABLET PO SCH (08:40)
[2020-11-08] MEDS: DULoxetine 30 MG CAP (CYMBALTA) PO SCH (08:41)
[2020-11-08 08:43] VITALS: BP 118/58
[2020-11-08] MEDS: METOPROLOL TART 25 MG TABLET PO SCH (08:43)
[2020-11-08] MEDS: DIGOXIN 0.125 MG TAB PO SCH (08:43)
[2020-11-08] MEDS ORDERED: AMLO25TA PO (11:00)
[2020-11-08] MEDS ORDERED: INSUHUMDS SC ×2 (11:00)
[2020-11-08] MEDS ORDERED: MOM30SS2 PO (11:00)
[2020-11-08] MEDS ORDERED: METO1TAB87 PO (11:00)
[2020-11-08] MEDS ORDERED: ELIQ5TAB PO (11:00)
[2020-11-08] MEDS ORDERED: DOXY100T PO (11:00)
[2020-11-08] MEDS ORDERED: DIGO0.123 PO (11:00)
--- NOTE | 2020-11-08 20:29 | DS.PDOC ---
Discharge Summary General Date of Admission Nov 04, 2020 at 01:27 Date of Discharge 11/08/20 Attending Physician: Ml Renteria MD Discharge Summary HISTORY OF PRESENT ILLNESS: This 85 yr old M presented w c/o dyspnea for 2 days. He refused to come to the ER but his family called EMS. When EMS found him he was covered in urine, feces and bed bugs. At the time of my evaluation he reported feeling much better but his dyspnea had not completely resolved. He denied felling dizzy, having chest pain or any other acute c/o. In the ER patient was found to be in atrial fib with RVR. PNA, sepsis. He was ultimately admitted to medicine service for further treatment HOSPITAL COURSE: During his hospital course his shortness of breath likely 2/2 to PNA/sepsis with atrial fib with RVR. He remained on 3 L NC (home amount 2 L NC) but denies incr chest pain, SOB. WBC improved to wnl, he remained afebrile, BCx NG. Strep pneumoniae, legionella studies- neg. MRSA neg. No sputum cx was able to be collected. He was treated with IV abx initially and later transitioned to PO doxycycline. Atrial fibrillation likely 2/2 to L atrial dilation and PnA/sepsis. RVR resolved and by 11/08/20, HR 70-90, controlled. Echocardiogram was done and can be viewed below under "IMAGING". He was started on digoxin 0.125 mg daily (dig level 1.4), metoprolol 25 mg po BID, eliquis. This remained controlled but persistent. He required urology consult due to severe preputial phimosis, which required canalization and dilation, brantley catheter placement. It was recommended to leave catheter in place until the patient is more medically stable. At some point, he will need a circumcision which can be done as an outpatient. It is recommended to reach out to urology after discharge to scheduled follow up. He was found to cough with meals and found to have moderate oropharyngeal dysphagia characterized by prolonged mastication with solids and cough following intake of thin liquids and nectar thick liquids. ST recommend: Level 2/mech soft diet, Honey thick liquids, Meds with puree assist, ST services 3-5x wk to address strategy use for liquid tolerance and to address dysphagia. Due to physical deconditioning likely 2/2 to acute illness above, PT recommended continue rehab. On 11/08/20 patient was discharged from acute inpatient and admitted to ARU for further treatment/rehab. Other chronic issues were stable. PAST MEDICAL/ SURGICAL HISTORY: COPD Diabetes mellitus. Chronic kidney disease stage III Dyslipidemia Hypertension Coronary artery disease GERD Hemorrhoids Diverticulosis Incision and drainage of the wound was left hip Right humeral fracture Cholecystectomy Hernia repair SOCIAL HISTORY: Patient lives at home with his and their daughter. Patient used to smoke cigarettes but stopped greater than 10 years ago. Patient denies daily alcohol or drug use. 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 FAMILY HISTORY: Family history of coronary artery disease and diabetes mellitus DISCHARGE MEDICATIONS: Please see below PHYSICAL EXAMINATION: VITAL SIGNS: please see below General: NAD, comfortable, AAOx3 HEENT: PERRLA, EOMI, sclerae clear Neck: supple, normal ROM, no JVD Respiratory: lungs CTAB, no wheeze, no rales, no crackles CVS: RRR, normal S1, S2, no murmurs Abdo: soft, no masses, no hepatosplenomegaly, BS+, no rebound tenderness Extremities: trace edema, pulses 2+ MSK: no joint deformities, normal ROM Neuro: no focal neuro deficits, CN2-12 intact. generalized weakness 4/5 in all 4 extremities. No nystagmus. LABORATORY DATA, IMAGING STUDIES, MICROBIOLOGY: Please see below. Echocardiogram 11/04/20: EF 55-60% Normal left ventricular size and wall thickness. Wall motion appeared to be fairly symmetrical and normal, though somewhat challenging to eye care professional in light of his atrial ectopic activity. Borderline left atrial enlargement with LV diastolic dysfunction grade 1 and elevated estimated mean left atrial pressure. Normal right heart chamber sizes and motion with Doppler sign of borderline to mild pulmonary hypertension. Normal IVC size and collapse against an elevated central venous pressure. Normal aortic root diameter. At least mild aortic valvular sclerosis without functional abnormality. Mild mitral annular calcification with trace insufficiency. Normal appearing tricuspid valve with trace to very mild insufficiency. Could not detect any intracardiac mass or pericardial effusion. ASSESSMENT: is an 85 yr old M w a hx of COPD, DM2, CKD3, DLP, HTN, & CAD who presented w c/o dyspnea and will be admitted for sepsis & acute COPD 2/2 PNA & rapid Afib. PLAN: Shortness of breath likely 2/2 to PNA- resolved sepsis -Currently on 3 L NC, home amount 2 L NC. Denies incr chest pain, SOB -WBC wnl, afebrile. -BCx NG -Strep pneumoniae, legionella studies- neg -MRSA neg -No sputum cx -To complete 4 additional days of PO doxycycline Persistent atrial fibrillation likely 2/2 to L atrial dilation and PNA/sepsis, resolved RVR -HR 70-90, controlled. -Echocardiogram from 11/04/20 above -C/w digoxin 0.125 mg daily (dig level 1.4), metoprolol 25 mg po BID, eliquis Dysphagia -moderate oropharyngeal dysphagia characterized by prolonged mastication with solids and cough following intake of thin liquids and nectar thick liquids. -ST recommend: Level 2/mech soft diet, Honey thick liquids, Meds with puree assist, ST services 3-5x wk to address strategy use for liquid tolerance and to address dysphagia Physical deconditioning likely 2/2 to acute illness above -PT: Pt required assist for bed mobility and transfers, noted to have trunk and BLE knee flexion with prolonged standing and inc fatigue. Pt uses 2L 02 at baseline and this therapist assisted with 02 line management this session. Pt appears to be below baseline and will benefit from cont rehab. -D/c to ARU today to c/w rehab Severe preputial phimosis s/p canalization, dilation -F/u urology note -Recommending leaving catheter in place until the patient is more medically stable. At some point, he will need a circumcision which can be done as an outpatient. would recommend reaching out to urology to schedule follow and solidify plan for removal or keeping brantley catheter. DM2 -BS stable -ISS, FBSB AC and HS -hypoglycemic precaution Chronic kidney disease stage III -Cr wnl -avoid nephrotoxins Dyslipidemia -Fenofibrate Hypertension -c/w metoprolol, amlodipine DVT ppx -c/w eliquis Resolved: COPD exacerbation DISPOSITION: D/c to ARU today. Will need f/u with urology arranged after discharge from inpatient. TIME SPENT ON DISCHARGE: 35 minutes. Vital Signs/I&Os Vital Signs Date Time Temp Pulse Resp B/P (MAP) Pulse Ox O2 Delivery O2 Flow Rate FiO2 11/08/20 14:00 97.0 56 18 96 Nasal Cannula 3.0 11/08/20 08:43 118/58 11/03/20 20:45 96 I&O- Last 24 Hours up to 6 AM 11/08/20 06:00 Intake Total 1200 ml Balance 1200 ml Laboratory Data Labs 24H Laboratory Tests 2 11/07/20 20:46: Bedside Glucose (Misc Panel) 259H 11/08/20 05:29: Nucleated Red Blood Cells % (auto) 0.0, Anion Gap 5L, Glomerular Filtration Rate > 60.0, Calcium Level 9.4 11/08/20 11:44: Bedside Glucose (Misc Panel) 101 CBC/BMP Laboratory Tests 11/08/20 05:29 FSBS Laboratory Tests Test 11/07/20 20:46 11/08/20 11:44 Range/Units Bedside Glucose (Misc Panel) 259 101 83-110 MG/DL Microbiology Microbiology 11/03/20 Respiratory Virus Panel (PCR) (TEO) - Final, Complete 11/03/20 Blood Culture - Preliminary, Resulted No Growth after 72 hours. All specime... 11/03/20 Blood Culture - Preliminary, Resulted No Growth after 72 hours. All specime... Discharge Medications Scheduled Amlodipine Besylate (Amlodipine Besylate) 2.5 Mg Tablet, 2.5 MG PO DAILY Apixaban (Eliquis) 5 Mg Tablet, 5 MG PO BID Digoxin (Digoxin) 125 Mcg Tablet, 0.125 MG PO DAILY Doxycycline Hyclate (Doxycycline Hyclate) 100 Mg Tablet, 100 MG PO BID Duloxetine Hcl (Duloxetine HCl) 60 Mg Cap, 60 MG PO DAILY, (Reported) Ergocalciferol (Vitamin D2) (Vitamin D2) 50,000 Units Cap, 50,000 UNITS PO 1XWK, (Reported) TAKES ON FRIDAY Fenofibrate Nanocrystallized (Fenofibrate) 145 Mg Tablet, 145 MG PO DAILY, (Reported) Insulin Detemir (Levemir Flextouch) 100 Unit/Ml Inj, 30 UNIT SC QHS, (Reported) Insulin Human Lispro (Humalog) 100 Unit/1 Ml Vial, 0 UNITS SC AC Insulin Human Lispro (Humalog) 100 Unit/1 Ml Vial, 0 UNITS SC QHS Ipratropium/Albuterol Sulfate (Iprat-Albut 0.5-3(2.5) mg/3 ml) 1 Lia Lia, 1 VIAL NEB Q4H, (Reported) Metoprolol Tartrate (Metoprolol Tartrate) 25 Mg Tablet, 25 MG PO BID Omeprazole (Omeprazole) 20 Mg Cap, 20 MG PO QHS, (Reported) Salmeterol/Fluticasone (Advair 250-50 Diskus) 14 Puff/Inhaler Aerp, 1 PUFF INH BID, (Reported) Tiotropium [place] (Spiriva) 18 Mcg Cap, 1 PUFF INH DAILY, (Reported) Scheduled PRN Magnesium Hydroxide (Milk of Magnesia) 400 Mg/5 Ml Oral.susp, 30 ML PO DAILY PRN for CONSTIPATION Allergies Coded Allergies: No Known Allergies (Verified , 03/06/04) Ml Renteria MD Nov 08, 2020 20:29
== END 2020-11-08 15:46 | DRG 871 ==
LOC: M ED 19:59 → M ED INP 11-04 01:27 → ENRESERV 11-04 01:57 → M ICU 11-04 03:28 → M MSPAV 11-05 12:16
PROVIDERS: ADMIT Internal Medicine; ATTEND Internal Medicine
DX: A41.9 Sepsis, unspecified organism (principal); J18.9 Pneumonia, unspecified organism; I50.31 Acute diastolic (congestive) heart failure; J44.0 Chronic obstructive pulmonary disease with (acute) lower respiratory infection; I13.0 Hypertensive heart and chronic kidney disease with heart failure and stage 1 through stage 4 chronic kidney disease, or unspecified chronic kidney disease; I48.19 Other persistent atrial fibrillation; E11.22 Type 2 diabetes mellitus with diabetic chronic kidney disease; N18.30 Chronic kidney disease, stage 3 unspecified; E78.5 Hyperlipidemia, unspecified; R13.12 Dysphagia, oropharyngeal phase; R32 Unspecified urinary incontinence; I25.10 Atherosclerotic heart disease of native coronary artery without angina pectoris; I27.20 Pulmonary hypertension, unspecified; K21.9 Gastro-esophageal reflux disease without esophagitis; N47.1 Phimosis; Z90.49 Acquired absence of other specified parts of digestive tract; Z87.891 Personal history of nicotine dependence; Z79.4 Long term (current) use of insulin; Z79.899 Other long term (current) drug therapy

== ENCOUNTER 2020-11-08 12:55 | Inpatient (IN) | payer MEDICARE, OTHER ==
[~2020-11-08] VITALS: Ht 177.8 cm; Wt 72.1 kg
[~2020-11-08 12:55] MED LIST changes: +AMLO25TA PO; +DIGO0.123 PO; +DOXY100T PO; +INSUHUMDS SC; +MED REC COMMENT; +METO1TAB87 PO; +MOM30SS2 PO
[2020-11-08 15:50] VITALS: BP 115/59
[2020-11-08] MEDS ORDERED: BISACODYL 10 MG SUPP PR PRN (17:10)
[2020-11-08] MEDS ORDERED: DEXTROSE 50% 50 ML SYRINGE IV PRN (17:15)
[2020-11-08] MEDS ORDERED: GLUCOSE 4GM CHEW TABLET PO PRN (17:15)
[2020-11-08] MEDS ORDERED: GLUCAGON INJ 1MG VIAL SC PRN (17:15)
[2020-11-08] MEDS: MAGIC MOUTHWASH SUSPENSION BTL SSP SCH ×2 (17:30→20:47)
[2020-11-08] MEDS: HumaLOG INSULIN (NovoLOG) PER UNIT SC SCH (17:52)
[2020-11-08 20:15] VITALS: BP 128/56
[2020-11-08] MEDS: DOXYCYCLINE HYCLATE 100MG TABLET PO SCH (20:45)
[2020-11-08] MEDS: SENNA 8.6 MG TAB (SENOKOT) PO SCH (20:45)
[2020-11-08] MEDS: LACTOBACILLUS ACIDOPHILUS CAP (BACID) PO SCH (20:45)
[2020-11-08] MEDS: APIXABAN 5 MG TAB (ELIQUIS) PO SCH (20:45)
[2020-11-08] MEDS: PANTOPRAZOLE 40MG TAB (PROTONIX) PO SCH (20:45)
[2020-11-08] MEDS: DOCUSATE SODIUM 100MG CAPSULE PO SCH (20:45)
[2020-11-08] MEDS: METOPROLOL TART 25 MG TABLET PO SCH (20:46)
[2020-11-08] MEDS: REMEDY PHYTOPLEX Z-GUARD PASTE 113GM TUBE (FROM STOREROOM PRODUCT) TOP SCH (20:48)
[2020-11-08] MEDS: IPRATROPIUM 0.5MG/ALBUTEROL 2.5MG INH SOL UD 3ML (DUONEB) NEB SCH (21:00)
[2020-11-08] MEDS: ADVAIR HFA 230/21MCG INHALER INH SCH (21:00)
[2020-11-08] MEDS ORDERED: LEVEMIR (INSULIN DETEMIR) 1 UNITS/0.01ML SC SCH (21:00)
[2020-11-08] MEDS ORDERED: HumaLOG INSULIN (NovoLOG) PER UNIT SC SCH (21:00)
[2020-11-09] MEDS ORDERED: SODIUM CHLORIDE 0.9% INJ 10 ML SYR IV PRN (01:50)
[2020-11-09] MEDS: SODIUM CHLORIDE 0.9% INJ 10 ML SYR IV SCH ×3 (05:29→23:02)
[2020-11-09 06:01] LABS: BASO # 0.1 10^3/uL (0.0-0.2); BASO % 0.8 % (0.0-1.0); EOS # 0.3 10^3/uL (0.0-0.5); EOS % 1.5 % (0.0-3.0); HEMATOCRIT 38.4 % (42.0-52.0); HEMOGLOBIN 12.1 g/dl (13.5-17.5); LYMPH # 3.2 10^3/uL (1.5-5.0); LYMPH % 19.1 % (24.0-44.0); MEAN CORPUSCULAR HEMOGLOBIN 28.5 pg (27.0-33.0); MEAN CORPUSCULAR HGB CONC 31.5 g/dl (32.0-36.5); MEAN CORPUSCULAR VOLUME 90.6 fl (80.0-96.0); MONO # 1.4 10^3/uL (0.0-0.8); MONO % 8.4 % (2.0-8.0); NEUTROPHILS # 11.1 10^3/uL (1.5-8.5); NEUTROPHILS % 65.6 % (36.0-66.0); PLATELET COUNT, AUTOMATED 388 10^3/uL (150-450); RED BLOOD COUNT 4.24 10^6/uL (4.30-6.10); WHITE BLOOD COUNT 16.9 10^3/uL (4.0-10.0)
[2020-11-09 06:14] VITALS: BP 130/67
[2020-11-09 06:47] LABS: ALBUMIN 2.6 GM/DL (3.2-5.2); ALT/SGPT 36 U/L (12-78); BILIRUBIN,TOTAL 0.3 MG/DL (0.2-1.0); BLOOD UREA NITROGEN 24 MG/DL (7-18); CARBON DIOXIDE LEVEL 34 MEQ/L (21-32); CHLORIDE LEVEL 101 MEQ/L (98-107); CREATININE FOR GFR 0.84 MG/DL (0.70-1.30); GLOMERULAR FILTRATION RATE > 60.0 (>35); GLUCOSE, FASTING 38 MG/DL (70-100); POTASSIUM SERUM 4.2 MEQ/L (3.5-5.1); SODIUM LEVEL 139 MEQ/L (136-145); TOTAL PROTEIN 5.9 GM/DL (6.4-8.2)
[2020-11-09] MEDS: IPRATROPIUM 0.5MG/ALBUTEROL 2.5MG INH SOL UD 3ML (DUONEB) NEB SCH ×4 (07:36→20:19)
[2020-11-09] MEDS: TIOTROPIUM INHALER/CAPSULE (SPIRIVA) INH SCH (07:36)
[2020-11-09] MEDS: ADVAIR HFA 230/21MCG INHALER INH SCH ×2 (07:37→20:19)
[2020-11-09] MEDS: MAGIC MOUTHWASH SUSPENSION BTL SSP SCH ×4 (08:00→21:53)
--- NOTE | 2020-11-09 08:50 | IPNPDOC ---
Date Seen The patient was seen on 11/09/20. Progress Note SUBJECTIVE: BS 38 this AM, stopped AM and HS levemir, continue coverage with ISS. WBC incr to 16K, could be reactive as remains afebrile, no s/s of sepsis. Follow. Denies chest pain, shortness of breath, n/v/d. OBJECTIVE: PHYSICAL EXAMINATION: VITAL SIGNS: please see below General: NAD, comfortable, AAOx3 HEENT: PERRLA, EOMI, sclerae clear Neck: supple, normal ROM, no JVD Respiratory: lungs CTAB, no wheeze, no rales, no crackles CVS: RRR, normal S1, S2, no murmurs Abdo: soft, no masses, no hepatosplenomegaly, BS+, no rebound tenderness Extremities: trace edema, pulses 2+ MSK: no joint deformities, normal ROM Neuro: no focal neuro deficits, CN2-12 intact. generalized weakness 4/5 in all 4 extremities. No nystagmus. LABORATORY DATA: Please see below IMAGING STUDIES: No new imaging MICROBIOLOGY: None new- consider luo culturing if WBC remains elevated Echocardiogram 11/04/20: EF 55-60% Normal left ventricular size and wall thickness. Wall motion appeared to be fairly symmetrical and normal, though somewhat challenging to spring encaser in light of his atrial ectopic activity. Borderline left atrial enlargement with LV diastolic dysfunction grade 1 and elevated estimated mean left atrial pressure. Normal right heart chamber sizes and motion with Doppler sign of borderline to mild pulmonary hypertension. Normal IVC size and collapse against an elevated central venous pressure. Normal aortic root diameter. At least mild aortic valvular sclerosis without functional abnormality. Mild mitral annular calcification with trace insufficiency. Normal appearing tricuspid valve with trace to very mild insufficiency. Could not detect any intracardiac mass or pericardial effusion. ASSESSMENT: is an 85 yr old M w a hx of COPD, DM2, CKD3, DLP, HTN, & CAD recently had inpatient admission for sepsis & acute COPD 2/2 PNA & rapid Afib. Currently admitted to ARU for continued rehab for physical deconditioning, weakness 2/2 to acute illnesses. PLAN: Hypoglycemia likely 2/2 to insulin -Hx of DM2 -BS improving from 38 --> 157 -Holding AM and HS levemir, ISS today -C/w FBSB AC and HS -hypoglycemic precaution Physical deconditioning likely 2/2 to acute illness above -PT: Pt required assist for bed mobility and transfers, noted to have trunk and BLE knee flexion with prolonged standing and inc fatigue. Pt uses 2L 02 at baseline and this therapist assisted with 02 line management this session. Pt appears to be below baseline and will benefit from cont rehab. -D/c to ARU today to c/w rehab Shortness of breath likely 2/2 to PNA- resolved sepsis -Currently on 3 L NC, home amount 2 L NC. Denies incr chest pain, SOB -WBC wnl, afebrile. -BCx NG -Strep pneumoniae, legionella studies- neg -MRSA neg -No sputum cx -To complete 3 additional days of PO doxycycline Persistent atrial fibrillation likely 2/2 to L atrial dilation and PNA/sepsis, resolved RVR -HR controlled. -Echocardiogram from 11/04/20 above -C/w digoxin 0.125 mg daily (dig level 1.4), metoprolol 25 mg po BID, eliquis Dysphagia -moderate oropharyngeal dysphagia characterized by prolonged mastication with solids and cough following intake of thin liquids and nectar thick liquids. -ST recommend: Level 2/mech soft diet, Honey thick liquids, Meds with puree assist, ST services 3-5x wk to address strategy use for liquid tolerance and to address dysphagia Severe preputial phimosis s/p canalization, dilation -Please refer to recent urology note from last admission -Recommending leaving catheter in place until the patient is more medically stable. At some point, he will need a circumcision which can be done as an outpatient. would recommend reaching out to urology to schedule follow and solidify plan for removal or keeping brantley catheter. Chronic kidney disease stage III -Cr wnl -avoid nephrotoxins Dyslipidemia -Fenofibrate COPD -Stable on 3 L NC -Not currently in exacerbation Hypertension -c/w metoprolol, amlodipine DVT ppx -c/w eliquis DISPOSITION: C/w treatment above. Will continue to follow as needed. VS, I&O, 24H, Fishbone Vital Signs/I&O Vital Signs Date Time Temp Pulse Resp B/P (MAP) Pulse Ox O2 Delivery O2 Flow Rate FiO2 11/09/20 06:14 97.5 77 18 130/67 (88) 98 Nasal Cannula 3.0 I&O- Last 24 Hours up to 6 AM 11/09/20 06:00 Intake Total 125 ml Output Total 150 ml Balance -25 ml Laboratory Data 24H LABS Laboratory Tests 2 11/08/20 16:41: Bedside Glucose (Misc Panel) 190H 11/08/20 20:09: Bedside Glucose (Misc Panel) 171H 11/09/20 05:45: Immature Granulocyte % (Auto) 4.6H, Neutrophils (%) (Auto) 65.6, Lymphocytes (%) (Auto) 19.1L, Monocytes (%) (Auto) 8.4H, Eosinophils (%) (Auto) 1.5, Basophils (%) (Auto) 0.8, Neutrophils # (Auto) 11.1H, Lymphocytes # (Auto) 3.2, Monocytes # (Auto) 1.4H, Eosinophils # (Auto) 0.3, Basophils # (Auto) 0.1, Nucleated Red Blood Cells % (auto) 0.0, Anion Gap 4L, Glomerular Filtration Rate > 60.0, Calcium Level 9.0, Total Bilirubin 0.3, Aspartate Amino Transf (AST/SGOT) 26, Alanine Aminotransferase (ALT/SGPT) 36, Alkaline Phosphatase 90, Total Protein 5.9L, Albumin 2.6L, Albumin/Globulin Ratio 0.8 11/09/20 07:20: Bedside Glucose Confirm (Misc) 42 11/09/20 08:15: Bedside Glucose (Misc Panel) 157H CBC/BMP Laboratory Tests 11/09/20 05:45 Current Medications Current Medications Medications (Trade) Dose Ordered Sig/Mata Route PRN Reason Start Time Stop Time Status Last Admin Dose Admin Acetaminophen (Tylenol Tab) 650 mg Q4HP PRN PO fever/MILD PAIN (PS 1-4) 11/08/20 17:10 Albuterol/ Ipratropium (Duoneb (Ipr 0.5mg/Alb 2.5mg)) 3 ml RQID NEB 11/08/20 20:00 11/09/20 07:36 Amlodipine Besylate (Norvasc) 2.5 mg DAILY PO 11/09/20 09:00 Apixaban (Eliquis) 5 mg BID PO 11/08/20 21:00 11/08/20 20:45 Bisacodyl (Dulcolax Suppository) 10 mg DAILYPRN PRN SC CONSTIPATION 11/08/20 17:10 Dextrose (Dextrose 50%) 25 ml ASDIRECTED PRN IV SEE LABEL COMMENTS 11/08/20 17:15 Digoxin (Lanoxin) 0.125 mg DAILY PO 11/09/20 09:00 Docusate Sodium (Colace) 100 mg BID PO 11/08/20 21:00 11/08/20 20:45 Doxycycline Hyclate (Vibramycin) 100 mg BID PO 11/08/20 21:00 11/08/20 20:45 Duloxetine HCl (Cymbalta) 60 mg DAILY PO 11/09/20 09:00 Fenofibrate (Tricor) 145 mg DAILY PO 11/09/20 09:00 Glucagon (Glucagon) 1 mg ASDIRECTED PRN SC SEE LABEL COMMENTS 11/08/20 17:15 Glucose (Glucose) 16 GM ASDIRECTED PRN PO SEE LABEL COMMENTS 11/08/20 17:15 Heparin Sodium (Heparin Lock Flush 10units/ml) 10 units ASDIRECTED PRN IV SEE LABEL COMMENTS 11/09/20 01:50 Heparin Sodium (Heparin Lock Flush 10units/ml) 10 units HLF IV 11/09/20 06:00 11/09/20 05:29 Insulin Detemir (Levemir Insulin) 20 units QHS SC 11/09/20 21:00 11/09/20 08:44 DC Insulin Detemir (Levemir Insulin) 30 units QHS SC 11/08/20 21:00 11/09/20 08:03 DC 11/08/20 20:47 Insulin Human Lispro (HumaLOG INSULIN) SEE PROTOCOL TABLE AC SC 11/08/20 17:30 11/08/20 17:52 Insulin Human Lispro (HumaLOG INSULIN) SEE PROTOCOL TABLE QHS SC 11/08/20 21:00 Lactobacillus Acidophilus (Bacid) 1 ea TID PO 11/08/20 21:00 11/08/20 20:45 Lidocaine/ Diphenhydr/Alum/ Mg/Simeth (Magic Mouthwash) 5ML ACHS SSP 11/08/20 17:30 Metoprolol Tartrate (Lopressor) 25 mg BID PO 11/08/20 21:00 11/08/20 20:46 Pantoprazole Sodium (Protonix) 40 mg BID PO 11/08/20 21:00 11/08/20 20:45 Pantoprazole Sodium (Protonix) 40 mg DAILY PO 11/09/20 09:00 11/08/20 17:21 DC Prednisone (Deltasone) 40 mg DAILY PO 11/09/20 09:00 Salmeterol Xinafoate/ Fluticasone (Advair Hfa ) 2 puff RBID INH 11/08/20 20:00 11/09/20 07:37 Senna (Senokot) 1 tab QHS PO 11/08/20 21:00 11/08/20 20:45 Sodium Chloride (Saline Lock Flush) 10 ml ASDIRECTED PRN IV SEE LABEL COMMENTS 11/09/20 01:50 Sodium Chloride (Saline Lock Flush) 10 ml SLF IV 11/09/20 06:00 11/09/20 05:29 Tiotropium [place] (Spiriva Handihaler) 1 inhalation DAILY@08 INH 11/09/20 08:00 11/09/20 07:36 Allergies Coded Allergies: No Known Allergies (Verified , 03/06/04) Current Medications Current Medications Medications (Trade) Dose Ordered Sig/Mata Route PRN Reason Start Time Stop Time Status Last Admin Dose Admin Acetaminophen (Tylenol Tab) 650 mg Q4HP PRN PO fever/MILD PAIN (PS 1-4) 11/08/20 17:10 Albuterol/ Ipratropium (Duoneb (Ipr 0.5mg/Alb 2.5mg)) 3 ml RQID NEB 11/08/20 20:00 11/09/20 11:24 Amlodipine Besylate (Norvasc) 2.5 mg DAILY PO 11/09/20 09:00 Apixaban (Eliquis) 5 mg BID PO 11/08/20 21:00 11/09/20 10:24 Bisacodyl (Dulcolax Suppository) 10 mg DAILYPRN PRN SC CONSTIPATION 11/08/20 17:10 Dextrose (Dextrose 50%) 25 ml ASDIRECTED PRN IV SEE LABEL COMMENTS 11/08/20 17:15 Digoxin (Lanoxin) 0.125 mg DAILY PO 11/09/20 09:00 11/09/20 10:26 Docusate Sodium (Colace) 100 mg BID PO 11/08/20 21:00 11/09/20 10:23 Doxycycline Hyclate (Vibramycin) 100 mg BID PO 11/08/20 21:00 11/09/20 10:24 Duloxetine HCl (Cymbalta) 60 mg DAILY PO 11/09/20 09:00 11/09/20 10:23 Fenofibrate (Tricor) 145 mg DAILY PO 11/09/20 09:00 11/09/20 10:25 Glucagon (Glucagon) 1 mg ASDIRECTED PRN SC SEE LABEL COMMENTS 11/08/20 17:15 Glucose (Glucose) 16 GM ASDIRECTED PRN PO SEE LABEL COMMENTS 11/08/20 17:15 Heparin Sodium (Heparin Lock Flush 10units/ml) 10 units ASDIRECTED PRN IV SEE LABEL COMMENTS 11/09/20 01:50 Heparin Sodium (Heparin Lock Flush 10units/ml) 10 units HLF IV 11/09/20 06:00 11/09/20 05:29 Insulin Detemir (Levemir Insulin) 20 units QHS SC 11/09/20 21:00 11/09/20 08:44 DC Insulin Detemir (Levemir Insulin) 30 units QHS SC 11/08/20 21:00 11/09/20 08:03 DC 11/08/20 20:47 Insulin Human Lispro (HumaLOG INSULIN) SEE PROTOCOL TABLE AC SC 11/08/20 17:30 11/08/20 17:52 Insulin Human Lispro (HumaLOG INSULIN) SEE PROTOCOL TABLE QHS SC 11/08/20 21:00 Lactobacillus Acidophilus (Bacid) 1 ea TID PO 11/08/20 21:00 11/09/20 10:23 Lidocaine/ Diphenhydr/Alum/ Mg/Simeth (Magic Mouthwash) 5ML ACHS SSP 11/08/20 17:30 11/09/20 12:07 Metoprolol Tartrate (Lopressor) 25 mg BID PO 11/08/20 21:00 11/08/20 20:46 Pantoprazole Sodium (Protonix) 40 mg BID PO 11/08/20 21:00 11/09/20 10:24 Pantoprazole Sodium (Protonix) 40 mg DAILY PO 11/09/20 09:00 11/08/20 17:21 DC Prednisone (Deltasone) 40 mg DAILY PO 11/09/20 09:00 11/09/20 10:24 Salmeterol Xinafoate/ Fluticasone (Advair Hfa ) 2 puff RBID INH 11/08/20 20:00 11/09/20 07:37 Senna (Senokot) 1 tab QHS PO 11/08/20 21:00 11/09/20 10:24 Sodium Chloride (Saline Lock Flush) 10 ml ASDIRECTED PRN IV SEE LABEL COMMENTS 11/09/20 01:50 Sodium Chloride (Saline Lock Flush) 10 ml SLF IV 11/09/20 06:00 11/09/20 05:29 Tiotropium [place] (Spiriva Handihaler) 1 inhalation DAILY@08 INH 11/09/20 08:00 11/09/20 07:36 Ml Renteria MD Nov 09, 2020 08:49
[2020-11-09] MEDS ORDERED: PANTOPRAZOLE 40MG TAB (PROTONIX) PO SCH (09:00)
--- NOTE | 2020-11-09 09:05 | REP ---
INDICATION: monitor previous, new? infilatrates. COMPARISON: Comparison CT study November 03, 2020. Comparison CT study is also reviewed from 26 March 2019.. TECHNIQUE: Helical scanning is acquired. 3 mm axial images are generated. Coronal and sagittal MPR and coronal MIP images are generated. FINDINGS: There is an obliquely oriented bandlike area of parenchymal fibrosis in the peribronchovascular region of the right upper lobe. This has improved since the November 03, 2020 study with less prominent air bronchograms and decrease in the thickness of the density period the multifocal bilateral tree-in-bud type inflammatory pattern seen on the most recent prior study in the upper lobes has resolved.. There is chest wall calcification apparently associated with a rib fracture on the right, unchanged. Bronchitis/a mild bronchiectasis pattern persists in the lower lobes with some a increased interstitial markings in the left base. This is somewhat improved. There is still some bronchial wall thickening in the lower lobes. Subsegmental atelectasis is seen in the lingular segment of the left upper lobe. This is slightly more prominent. There is no evidence of pleural or pericardial effusion. Heavy vascular calcification is noted. No hilar or mediastinal mass or adenopathy is seen. There is a cyst in the upper pole the right kidney. No adrenal abnormality. Gallbladder surgically absent. No acute bony abnormality is appreciated. 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 IMPRESSION: Inflammatory changes in the lung heredia have improved. Some bronchitis bronchiectasis changes remain in the lower lobes. A bandlike of fibrotic appearing opacity in the right upper lobe is improved. <Electronically signed by Lucio Jameson > 11/09/20 0901
[2020-11-09] MEDS: HumaLOG INSULIN (NovoLOG) PER UNIT SC SCH ×2 (10:04→11:41)
[2020-11-09] MEDS: LACTOBACILLUS ACIDOPHILUS CAP (BACID) PO SCH ×3 (10:23→21:51)
[2020-11-09] MEDS: DULoxetine 30 MG CAP (CYMBALTA) PO SCH (10:23)
[2020-11-09] MEDS: DOCUSATE SODIUM 100MG CAPSULE PO SCH ×2 (10:23→21:52)
[2020-11-09] MEDS: DOXYCYCLINE HYCLATE 100MG TABLET PO SCH ×2 (10:24→21:52)
[2020-11-09] MEDS: PANTOPRAZOLE 40MG TAB (PROTONIX) PO SCH ×2 (10:24→21:52)
[2020-11-09] MEDS: predniSONE 20 MG TAB PO SCH (10:24)
[2020-11-09] MEDS: APIXABAN 5 MG TAB (ELIQUIS) PO SCH ×2 (10:24→21:52)
[2020-11-09] MEDS: SENNA 8.6 MG TAB (SENOKOT) PO SCH (10:24)
[2020-11-09] MEDS: REMEDY PHYTOPLEX Z-GUARD PASTE 113GM TUBE (FROM STOREROOM PRODUCT) TOP SCH ×3 (10:25→21:52)
[2020-11-09] MEDS: FENOFIBRATE 145 MG TAB (TRICOR) PO SCH (10:25)
[2020-11-09] MEDS: DIGOXIN 0.125 MG TAB PO SCH (10:26)
[2020-11-09] MEDS: METOPROLOL TART 25 MG TABLET PO SCH (10:27)
[2020-11-09] MEDS ORDERED: NS 1,000 ML IV ONE (10:55)
--- NOTE | 2020-11-09 11:00 | HPEPDOC ---
Fur Trapper Note DATE OF ADMISSION: 11-08-20 DATE OF SERVICE: 11-08-20 TIME OF ADMISSION: Please refer to physician's admission order. SOURCE OF ADMISSION INFORMATION: [facility] record and patient CHIEF COMPLAINT: weakness in setting of PNA and CHF exacerbation HISTORY OF PRESENT ILLNESS: 85M pmh DM, CKD3, HLD, HTN, CAD, GERD, diverticulosis, hemorrhoids, COPD who presented to [facility] ED on 11-04-20 with difficulty breathing and weakness. CT chest showed, Diffuse bullous change with scattered atelectasis or scar which is similar to the prior study of 03/26/2019. There is diffuse bronchial wall thickening which appears slightly increased and endobronchial plugging in the left lower lobe with peripheral left lower lobe infiltrates and consolidation consistent with interval pneumonia. There is also diffuse reticulonodular tree-in-bud infiltrates which are slightly increased overall since the prior study and may reflect interstitial pneumonia. And he was diagnosed with sepsis in setting of pneumonia and COPD exacerbation for which he was started on Ceftriaxone, azithromycin, and steroids. He also had episode of rapid Afib and developed acute CHF exacerbation. He had difficulty with brantley placement and was seen by urology for foreskin stricture treatment and advised to be seen in office for circumcision. He was transitioned to doxycycline , noted to have extreme weakness in therapy with desaturations and deemed medically appropriate for discharge to ARU on 11-08-20. REVIEW OF SYSTEMS: The following is a completed review of systems and has been reviewed. Review of systems otherwise unremarkable. PAIN: Patient self reports no pain EYES: No recent vision changes EARS, NOSE, & THROAT: + dysphagia CARDIOVASCULAR: Denies chest pain or palpitations PULMONARY: +shortness of breath on exertion GASTROINTESTINAL: Denies constipation/diarrhea GENITOURINARY: denies dysuria MUSCULOSKELETAL: generalized weakness NEUROLOGICAL: no tremor ot paresthesias HEMATOLOGICAL: denies easy bruising SKIN: sacral ulcers PSYCHIATRIC: Unremarkable All other review of systems found to be negative. PAST MEDICAL HISTORY: as per HPI PAST SURGICAL HISTORY: Right humeral fracture, cholecystectomy, hernia repair ALLERGIES: Please see below. MEDICATIONS: Please see below. FAMILY HISTORY: Cardiac and DM SOCIAL HISTORY: Former smoker, no etoh/illicit drugs DIET: level 2 and honey PHYSICAL EXAMINATION: VITAL SIGNS: Please see below. GENERAL: Pleasant and cooperative. No acute distress. HEENT: PERRL. Extraocular movements intact. Clear conjunctiva, dry oral mucosa CARDIOVASCULAR: Regular rate and rhythm. No murmurs, rubs, or gallops LUNGS: Clear to auscultation bilaterally. No wheezes. No rhonchi ABDOMEN: Soft, nontender, nondistended. Positive bowel sounds. Normal active bowel sounds NEUROLOGICAL: Alert and oriented times three. Cranial nerves II through XII gr ossly intact. Sensation grossly intact. EXTREMITIES: 4\5 strength bilateral upper extremities. 4\5 strength right lower extremity. 4/5 strength in left lower extremity. SKIN: +sacral ulcers, scattered LE excoriations LABORATORY DATA: Please see below. IMAGING: Imaging documentation personally reviewed by record FUNCTIONAL STATUS: Premorbid: Modified Independent with all activities of daily life as well as mobility On Admission: Mod-assist for bed mobility, functional transfers, toileting, dressing, ambulation GOALS: Mod-I bed mobility, functional transfers, toileting, dressing, ambulation, bathing ASSESSMENT:85-year-old M with past medical history of COPD, CAD who presents status post sepsis in setting of PNA and CHF exacerbation PLAN: 1. 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 Cardiac- Afib c/u eliquis, digoxin, metoprolol -CHF- daily weights, on honey thickened liquids, will avoid fluid restriction -HLD- c/u tricor 3. resp- hx of COPD on 02 with recent COPD exacerbation and PNA- c/u doxycycline, inhalers, and steroids -guaifenasin -HOB 30 degrees aspiration precautions 4. Endo- hx of DM c/u ISS and levemir 5. DVT ppx on eliquis 6. GI ppx -protonix BID 7. Psych- cymbalta 8. Dispo- tbd - POST ADMISSION PHYSICIAN EVALUATION: Medical and functional status: Description of medical status, medical assessment: As above. Rehabilitation diagnosis and current and prior cold morbid medical conditions as above. Risk of complications and plans to mitigate them as above. Description of functional status current status is as above. Prior status as above. Status compared to preadmission: There are no clinically significant differences between the patient's current status and the information described on the preadmission screening document. Treatment plan anticipated: Treatment plan is as described above. Required disciplines including physical therapy, occupational therapy, others as noted above Intensity of services: 3 hours a day, 6 days a week. Special considerations: There are no specific special or safety considerations that would likely preclude immediate implementation of an intensive rehabilitation program or subsequently influence the plan of care ATTESTATION: Considering all the information above, it is my best judgment that this patient requires intensive rehabilitation therapy as described above and an inpatient hospital environment due to the complexity of nursing, medical, and rehabilitation needs required by the patient. Furthermore, this patient can reasonably be expected to participate in an benefit from an inpatient rehab ilitation stay with an interdisciplinary team approach to the delivery of rehabilitation care under the direction and supervision of rehabilitation physician PROGNOSIS: good ESTIMATED LENGTH OF STAY:14-18 days. PROJECTED DISCHARGE DESTINATION: Home with family support and any durable medical equipment required to increase functional safety and mobility TIME SPENT COUNSELING AND COORDINATING INITIAL CARE: Greater than 70 minutes. Vital Signs Vital Sign - Last 24 Hours 11/08/20 11/08/20 11/08/20 11/08/20 15:50 20:15 20:30 20:46 Temp 97.6 97.1 Pulse 77 89 89 Resp 18 18 B/P (MAP) 115/59 (77) 128/56 (80) 128/56 Pulse Ox 95 98 O2 Delivery Nasal Cannula Nasal Cannula O2 Flow Rate 3.0 3.0 4.0 11/08/20 11/09/20 11/09/20 11/09/20 21:00 06:14 09:00 10:26 Temp 97.5 Pulse 77 62 68 Resp 18 B/P (MAP) 130/67 (88) 96/62 Pulse Ox 98 O2 Delivery Nasal Cannula Nasal Cannula O2 Flow Rate 4.0 3.0 11/09/20 10:27 Pulse 68 B/P (MAP) 98/62 Laboratory Data CBC/BMP Laboratory Tests 11/09/20 05:45 Labs 24H Laboratory Tests 2 11/08/20 16:41: Bedside Glucose (Misc Panel) 190H 11/08/20 20:09: Bedside Glucose (Misc Panel) 171H 11/09/20 05:45: Immature Granulocyte % (Auto) 4.6H, Neutrophils (%) (Auto) 65.6, Lymphocytes (%) (Auto) 19.1L, Monocytes (%) (Auto) 8.4H, Eosinophils (%) (Auto) 1.5, Basophils (%) (Auto) 0.8, Neutrophils # (Auto) 11.1H, Lymphocytes # (Auto) 3.2, Monocytes # (Auto) 1.4H, Eosinophils # (Auto) 0.3, Basophils # (Auto) 0.1, Nucleated Red Blood Cells % (auto) 0.0, Anion Gap 4L, Glomerular Filtration Rate > 60.0, Calcium Level 9.0, Total Bilirubin 0.3, Aspartate Amino Transf (AST/SGOT) 26, Alanine Aminotransferase (ALT/SGPT) 36, Alkaline Phosphatase 90, Total Protein 5.9L, Albumin 2.6L, Albumin/Globulin Ratio 0.8 11/09/20 07:20: Bedside Glucose Confirm (Misc) 42 11/09/20 08:15: Bedside Glucose (Misc Panel) 157H FSBS Laboratory Tests Test 11/08/20 16:41 11/08/20 20:09 11/09/20 08:15 Range/Units Bedside Glucose (Misc Panel) 190 171 157 83-110 MG/DL Home Medications Scheduled Amlodipine Besylate (Amlodipine Besylate) 2.5 Mg Tablet, 2.5 MG PO DAILY Apixaban (Eliquis) 5 Mg Tablet, 5 MG PO BID Digoxin (Digoxin) 125 Mcg Tablet, 0.125 MG PO DAILY Doxycycline Hyclate (Doxycycline Hyclate) 100 Mg Tablet, 100 MG PO BID Duloxetine Hcl (Duloxetine HCl) 60 Mg Cap, 60 MG PO DAILY, (Reported) Ergocalciferol (Vitamin D2) (Vitamin D2) 50,000 Units Cap, 50,000 UNITS PO 1XWK, (Reported) TAKES ON FRIDAY Fenofibrate Nanocrystallized (Fenofibrate) 145 Mg Tablet, 145 MG PO DAILY, (Repo rted) Insulin Detemir (Levemir Flextouch) 100 Unit/Ml Inj, 30 UNIT SC QHS, (Reported) Insulin Human Lispro (Humalog) 100 Unit/1 Ml Vial, 0 UNITS SC AC Insulin Human Lispro (Humalog) 100 Unit/1 Ml Vial, 0 UNITS SC QHS Ipratropium/Albuterol Sulfate (Iprat-Albut 0.5-3(2.5) mg/3 ml) 1 Lia Lia, 1 VIAL NEB Q4H, (Reported) Metoprolol Tartrate (Metoprolol Tartrate) 25 Mg Tablet, 25 MG PO BID Omeprazole (Omeprazole) 20 Mg Cap, 20 MG PO QHS, (Reported) Salmeterol/Fluticasone (Advair 250-50 Diskus) 14 Puff/Inhaler Aerp, 1 PUFF INH BID, (Reported) Tiotropium [place] (Spiriva) 18 Mcg Cap, 1 PUFF INH DAILY, (Reported) Scheduled PRN Magnesium Hydroxide (Milk of Magnesia) 400 Mg/5 Ml Oral.susp, 30 ML PO DAILY PRN for CONSTIPATION Allergies Coded Allergies: No Known Allergies (Verified , 03/06/04) A-FIB/CHADSVASC A-FIB History Current/History of A-Fib/PAF?: Yes Current PO Anticoag Therapy: Yes IGNACIA WILHELM MD Nov 09, 2020 11:00
--- NOTE | 2020-11-09 11:00 | IPNPDOC ---
PM&R Progress Note DATE OF SERVICE: Nov 09, 2020 Home Office Representative Progress Note Subjective: Patient reporting he fe feels tired and weak, but able to participate in therapy. REVIEW OF SYSTEMS: The following is a completed review of systems and has been reviewed. Review of systems otherwise unremarkable. PAIN: Patient self reports no pain EYES: No recent vision changes EARS, NOSE, & THROAT: + dysphagia CARDIOVASCULAR: Denies chest pain or palpitations PULMONARY: +shortness of breath on exertion GASTROINTESTINAL: Denies constipation/diarrhea GENITOURINARY: denies dysuria MUSCULOSKELETAL: generalized weakness NEUROLOGICAL: no tremor ot paresthesias HEMATOLOGICAL: denies easy bruising SKIN: sacral ulcers PSYCHIATRIC: Unremarkable All other review of systems found to be negative. PHYSICAL EXAMINATION: VITAL SIGNS: Please see below. GENERAL: Pleasant and cooperative. No acute distress. HEENT: PERRL. Extraocular movements intact. Clear conjunctiva, dry oral mucosa CARDIOVASCULAR: Regular rate and rhythm. No murmurs, rubs, or gallops LUNGS: Clear to auscultation bilaterally. No wheezes. No rhonchi ABDOMEN: Soft, nontender, nondistended. Positive bowel sounds. Normal active bowel sounds NEUROLOGICAL: Alert and oriented times three. Cranial nerves II through XII grossly intact. Sensation grossly intact. EXTREMITIES: 4\5 strength bilateral upper extremities. 4\5 strength right lower extremity. 4/5 strength in left lower extremity. SKIN: +sacral ulcers, scattered LE excoriations ASSESSMENT:85-year-old M with past medical history of COPD, CAD who presents status post sepsis in setting of PNA and CHF exacerbation PLAN: 1. 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 Cardiac- Afib c/u eliquis, digoxin, metoprolol -CHF- daily weights, on honey thickened liquids, will avoid fluid restriction, will give gentle hydration as patient appears dehydrated -HLD- c/u tricor 3. resp- hx of COPD on 02 with recent COPD exacerbation and PNA- c/u doxycycline, inhalers, and steroids -Leukocytosis- on steroids, repeat CT chest showing overall improvements -HOB 30 degrees aspiration precautions 4. Endo- hx of DM with hypoglycemia, insulin held, c/u FS and hypoglycemic protocol 5. DVT ppx on eliquis 6. GI ppx -protonix BID 7. Psych- cymbalta 8. Dispo- tbd Allergies Coded Allergies: No Known Allergies (Verified , 03/06/04) Vital Signs Vital Signs Date Time Temp Pulse Resp B/P (MAP) Pulse Ox O2 Delivery O2 Flow Rate FiO2 11/09/20 10:27 68 98/62 11/09/20 06:14 97.5 18 98 Nasal Cannula 3.0 Laboratory Data CBC/BMP Laboratory Tests 11/09/20 05:45 Labs 24H Laboratory Tests 2 11/08/20 16:41: Bedside Glucose (Misc Panel) 190H 11/08/20 20:09: Bedside Glucose (Misc Panel) 171H 11/09/20 05:45: Immature Granulocyte % (Auto) 4.6H, Neutrophils (%) (Auto) 65.6, Lymphocytes (%) (Auto) 19.1L, Monocytes (%) (Auto) 8.4H, Eosinophils (%) (Auto) 1.5, Basophils (%) (Auto) 0.8, Neutrophils # (Auto) 11.1H, Lymphocytes # (Auto) 3.2, Monocytes # (Auto) 1.4H, Eosinophils # (Auto) 0.3, Basophils # (Auto) 0.1, Nucleated Red Blood Cells % (auto) 0.0, Anion Gap 4L, Glomerular Filtration Rate > 60.0, Calcium Level 9.0, Total Bilirubin 0.3, Aspartate Amino Transf (AST/SGOT) 26, Alanine Aminotransferase (ALT/SGPT) 36, Alkaline Phosphatase 90, Total Protein 5.9L, Albumin 2.6L, Albumin/Globulin Ratio 0.8 11/09/20 07:20: Bedside Glucose Confirm (Misc) 42 11/09/20 08:15: Bedside Glucose (Misc Panel) 157H Current Medications Current Medications Current Medications Medications (Trade) Dose Ordered Sig/Mata Route PRN Reason Start Time Stop Time Status Last Admin Dose Admin Acetaminophen (Tylenol Tab) 650 mg Q4HP PRN PO fever/MILD PAIN (PS 1-4) 11/08/20 17:10 Albuterol/ Ipratropium (Duoneb (Ipr 0.5mg/Alb 2.5mg)) 3 ml RQID NEB 11/08/20 20:00 11/09/20 07:36 Amlodipine Besylate (Norvasc) 2.5 mg DAILY PO 11/09/20 09:00 Apixaban (Eliquis) 5 mg BID PO 11/08/20 21:00 11/09/20 10:24 Bisacodyl (Dulcolax Suppository) 10 mg DAILYPRN PRN [place] CONSTIPATION 11/08/20 17:10 Dextrose (Dextrose 50%) 25 ml ASDIRECTED PRN IV SEE LABEL COMMENTS 11/08/20 17:15 Digoxin (Lanoxin) 0.125 mg DAILY PO 11/09/20 09:00 11/09/20 10:26 Docusate Sodium (Colace) 100 mg BID PO 11/08/20 21:00 11/09/20 10:23 Doxycycline Hyclate (Vibramycin) 100 mg BID PO 11/08/20 21:00 11/09/20 10:24 Duloxetine HCl (Cymbalta) 60 mg DAILY PO 11/09/20 09:00 11/09/20 10:23 Fenofibrate (Tricor) 145 mg DAILY PO 11/09/20 09:00 11/09/20 10:25 Glucagon (Glucagon) 1 mg ASDIRECTED PRN SC SEE LABEL COMMENTS 11/08/20 17:15 Glucose (Glucose) 16 GM ASDIRECTED PRN PO SEE LABEL COMMENTS 11/08/20 17:15 Heparin Sodium (Heparin Lock Flush 10units/ml) 10 units ASDIRECTED PRN IV SEE LABEL COMMENTS 11/09/20 01:50 Heparin Sodium (Heparin Lock Flush 10units/ml) 10 units HLF IV 11/09/20 06:00 11/09/20 05:29 Insulin Detemir (Levemir Insulin) 20 units QHS SC 11/09/20 21:00 11/09/20 08:44 DC Insulin Detemir (Levemir Insulin) 30 units QHS SC 11/08/20 21:00 11/09/20 08:03 DC 11/08/20 20:47 Insulin Human Lispro (HumaLOG INSULIN) SEE PROTOCOL TABLE AC SC 11/08/20 17:30 11/08/20 17:52 Insulin Human Lispro (HumaLOG INSULIN) SEE PROTOCOL TABLE QHS SC 11/08/20 21:00 Lactobacillus Acidophilus (Bacid) 1 ea TID PO 11/08/20 21:00 11/09/20 10:23 Lidocaine/ Diphenhydr/Alum/ Mg/Simeth (Magic Mouthwash) 5ML ACHS SSP 11/08/20 17:30 11/09/20 08:00 Metoprolol Tartrate (Lopressor) 25 mg BID PO 11/08/20 21:00 11/08/20 20:46 Pantoprazole Sodium (Protonix) 40 mg BID PO 11/08/20 21:00 11/09/20 10:24 Pantoprazole Sodium (Protonix) 40 mg DAILY PO 11/09/20 09:00 11/08/20 17:21 DC Prednisone (Deltasone) 40 mg DAILY PO 11/09/20 09:00 11/09/20 10:24 Salmeterol Xinafoate/ Fluticasone (Advair Hfa ) 2 puff RBID INH 11/08/20 20:00 11/09/20 07:37 Senna (Senokot) 1 tab QHS PO 11/08/20 21:00 11/09/20 10:24 Sodium Chloride (Saline Lock Flush) 10 ml ASDIRECTED PRN IV SEE LABEL COMMENTS 11/09/20 01:50 Sodium Chloride (Saline Lock Flush) 10 ml SLF IV 11/09/20 06:00 11/09/20 05:29 Tiotropium [place] (Spiriva Handihaler) 1 inhalation DAILY@08 INH 11/09/20 08:00 11/09/20 07:36 IGNACIA WILHELM MD Nov 09, 2020 11:00
--- NOTE | 2020-11-09 16:19 | REP ---
INDICATION: stroke? in setting of dysphagia. COMPARISON: None. TECHNIQUE: Axial T1, T2, FLAIR, gradient echo, and diffusion-weighted MR imaging of the brain is obtained. FINDINGS: No evidence of restricted diffusion to suggest acute infarction. No gradient echo susceptibility to suggest hemorrhage. The ventricles and extra-axial CSF spaces are prominent, but within normal limits for age. No mass effect or midline shift. No abnormal fluid collections. Scattered nonspecific white matter changes are seen on the FLAIR images. IMPRESSION: No acute findings. No infarct or hemorrhage. Age-related volume loss and chronic small vessel ischemic changes. <Electronically signed by Erik Abel > 11/09/20 [id number]
[2020-11-09 20:15] VITALS: BP 117/87
[2020-11-09 20:19] VITALS: O2SAT 95
[2020-11-09] MEDS ORDERED: LEVEMIR (INSULIN DETEMIR) 1 UNITS/0.01ML SC SCH (21:00)
[2020-11-09] MEDS: METOPROLOL TART 12.5 MG PER 1/2 TAB PO SCH (21:52)
[2020-11-10] MEDS: SODIUM CHLORIDE 0.9% INJ 10 ML SYR IV SCH ×3 (05:24→22:26)
[2020-11-10 05:53] LABS: BASO # 0.1 10^3/uL (0.0-0.2); BASO % 0.5 % (0.0-1.0); EOS # 0.1 10^3/uL (0.0-0.5); HEMATOCRIT 34.9 % (42.0-52.0); HEMOGLOBIN 11.1 g/dl (13.5-17.5); LYMPH # 1.8 10^3/uL (1.5-5.0); LYMPH % 13.8 % (24.0-44.0); MEAN CORPUSCULAR HEMOGLOBIN 28.6 pg (27.0-33.0); MEAN CORPUSCULAR HGB CONC 31.8 g/dl (32.0-36.5); MEAN CORPUSCULAR VOLUME 89.9 fl (80.0-96.0); MONO # 0.9 10^3/uL (0.0-0.8); MONO % 7.1 % (2.0-8.0); NEUTROPHILS # 9.7 10^3/uL (1.5-8.5); NEUTROPHILS % 73.8 % (36.0-66.0); PLATELET COUNT, AUTOMATED 293 10^3/uL (150-450); RED BLOOD COUNT 3.88 10^6/uL (4.30-6.10); WHITE BLOOD COUNT 13.2 10^3/uL (4.0-10.0)
[2020-11-10 06:15] LABS: BLOOD UREA NITROGEN 24 MG/DL (7-18); CALCIUM LEVEL 8.1 MG/DL (8.8-10.2); CARBON DIOXIDE LEVEL 34 MEQ/L (21-32); CHLORIDE LEVEL 103 MEQ/L (98-107); CREATININE FOR GFR 0.78 MG/DL (0.70-1.30); GLOMERULAR FILTRATION RATE > 60.0 (>35); GLUCOSE, FASTING 102 MG/DL (70-100); POTASSIUM SERUM 4.4 MEQ/L (3.5-5.1); SODIUM LEVEL 140 MEQ/L (136-145)
[2020-11-10 06:30] VITALS: BP 122/71
[2020-11-10] MEDS: TIOTROPIUM INHALER/CAPSULE (SPIRIVA) INH SCH (07:22)
[2020-11-10] MEDS: IPRATROPIUM 0.5MG/ALBUTEROL 2.5MG INH SOL UD 3ML (DUONEB) NEB SCH ×4 (07:22→20:00)
[2020-11-10] MEDS: ADVAIR HFA 230/21MCG INHALER INH SCH ×2 (07:22→20:00)
[2020-11-10] MEDS: predniSONE 20 MG TAB PO SCH (09:02)
[2020-11-10] MEDS: DOXYCYCLINE HYCLATE 100MG TABLET PO SCH ×2 (09:02→22:27)
[2020-11-10] MEDS: APIXABAN 5 MG TAB (ELIQUIS) PO SCH ×2 (09:02→22:27)
[2020-11-10] MEDS: DOCUSATE SODIUM 100MG CAPSULE PO SCH ×2 (09:02→22:27)
[2020-11-10] MEDS: DULoxetine 30 MG CAP (CYMBALTA) PO SCH (09:02)
[2020-11-10] MEDS: PANTOPRAZOLE 40MG TAB (PROTONIX) PO SCH ×2 (09:03→22:27)
[2020-11-10] MEDS: DIGOXIN 0.125 MG TAB PO SCH (09:03)
[2020-11-10] MEDS: LACTOBACILLUS ACIDOPHILUS CAP (BACID) PO SCH ×3 (09:03→22:26)
[2020-11-10] MEDS: FENOFIBRATE 145 MG TAB (TRICOR) PO SCH (09:04)
[2020-11-10] MEDS: REMEDY PHYTOPLEX Z-GUARD PASTE 113GM TUBE (FROM STOREROOM PRODUCT) TOP SCH ×3 (09:04→22:28)
[2020-11-10] MEDS: METOPROLOL TART 12.5 MG PER 1/2 TAB PO SCH ×2 (09:04→22:27)
[2020-11-10] MEDS: MAGIC MOUTHWASH SUSPENSION BTL SSP SCH ×4 (09:08→22:28)
[2020-11-10 14:00] VITALS: BP 139/75
[2020-11-10 20:00] VITALS: O2SAT 95
[2020-11-10 20:16] VITALS: BP 147/68
--- NOTE | 2020-11-10 21:57 | IPNPDOC ---
PM&R Progress Note DATE OF SERVICE: Nov 10, 2020 Media Senior Recruiter Progress Note Subjective: Patient seen in therapy reporting his breathing is stable and he is having a good day. REVIEW OF SYSTEMS: The following is a completed review of systems and has been reviewed. Review of systems otherwise unremarkable. PAIN: Patient self reports no pain EYES: No recent vision changes EARS, NOSE, & THROAT: + dysphagia CARDIOVASCULAR: Denies chest pain or palpitations PULMONARY: +shortness of breath on exertion GASTROINTESTINAL: Denies constipation/diarrhea GENITOURINARY: denies dysuria MUSCULOSKELETAL: generalized weakness NEUROLOGICAL: no tremor or paresthesias HEMATOLOGICAL: denies easy bruising SKIN: sacral ulcers PSYCHIATRIC: Unremarkable All other review of systems found to be negative. PHYSICAL EXAMINATION: VITAL SIGNS: Please see below. GENERAL: Pleasant and cooperative. No acute distress. HEENT: PERRL. Extraocular movements intact. Clear conjunctiva, moist oral mucosa CARDIOVASCULAR: Regular rate and rhythm. No murmurs, rubs, or gallops LUNGS: Clear to auscultation bilaterally. No wheezes. No rhonchi ABDOMEN: Soft, nontender, nondistended. Positive bowel sounds. Normal active bowel sounds NEUROLOGICAL: Alert and oriented times three. Cranial nerves II through XII grossly intact. Sensation grossly intact. EXTREMITIES: 4\5 strength bilateral upper extremities. 4\5 strength right lower extremity. 4/5 strength in left lower extremity. (-) LE edema SKIN: +sacral ulcers, scattered LE excoriations ASSESSMENT:85-year-old M with past medical history of COPD, CAD who presents status post sepsis in setting of PNA and CHF exacerbation PLAN: 1. 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 Cardiac- Afib c/u eliquis, digoxin, metoprolol -CHF- daily weights, on honey thickened liquids, will avoid fluid restriction, -HLD- c/u tricor 3. resp- hx of COPD on 02 with recent COPD exacerbation and PNA- c/u doxycycline, inhalers, and steroids -Leukocytosis- on steroids, repeat CT chest showing overall improvements -HOB 30 degrees aspiration precautions 4. Endo- hx of DM with hypoglycemia, insulin held, c/u FS and hypoglycemic protocol 5. DVT ppx on eliquis 6. GI ppx -protonix BID 7. Psych- cymbalta 8. Dispo- tbd Allergies Coded Allergies: No Known Allergies (Verified , 03/06/04) Vital Signs Vital Signs Date Time Temp Pulse Resp B/P (MAP) Pulse Ox O2 Delivery O2 Flow Rate FiO2 11/10/20 20:16 97.9 71 20 147/68 (94) 98 Nasal Cannula 3.0 11/10/20 20:00 36 Laboratory Data CBC/BMP Laboratory Tests 11/10/20 05:36 Labs 24H Laboratory Tests 2 11/10/20 05:36: Immature Granulocyte % (Auto) 3.8H, Neutrophils (%) (Auto) 73.8H, Lymphocytes (%) (Auto) 13.8L, Monocytes (%) (Auto) 7.1, Eosinophils (%) (Auto) 1.0, Basophils (%) (Auto) 0.5, Neutrophils # (Auto) 9.7H, Lymphocytes # (Auto) 1.8, Monocytes # (Auto) 0.9H, Eosinophils # (Auto) 0.1, Basophils # (Auto) 0.1, Nucleated Red Blood Cells % (auto) 0.0, Anion Gap 3L, Glomerular Filtration Rate > 60.0, Calcium Level 8.1L 11/10/20 11:18: Bedside Glucose (Misc Panel) 131H 11/10/20 16:23: Bedside Glucose (Misc Panel) 223H 11/10/20 20:27: Bedside Glucose (Misc Panel) 235H Current Medications Current Medications Current Medications Medications (Trade) Dose Ordered Sig/Mata Route PRN Reason Start Time Stop Time Status Last Admin Dose Admin Acetaminophen (Tylenol Tab) 650 mg Q4HP PRN PO fever/MILD PAIN (PS 1-4) 11/08/20 17:10 Albuterol/ Ipratropium (Duoneb (Ipr 0.5mg/Alb 2.5mg)) 3 ml RQID NEB 11/08/20 20:00 11/10/20 20:00 Amlodipine Besylate (Norvasc) 2.5 mg DAILY PO 11/09/20 09:00 11/09/20 16:34 DC Apixaban (Eliquis) 5 mg BID PO 11/08/20 21:00 11/10/20 09:02 Bisacodyl (Dulcolax Suppository) 10 mg DAILYPRN PRN [place] CONSTIPATION 11/08/20 17:10 Dextrose (Dextrose 50%) 25 ml ASDIRECTED PRN IV SEE LABEL COMMENTS 11/08/20 17:15 Digoxin (Lanoxin) 0.125 mg DAILY PO 11/09/20 09:00 11/10/20 09:03 Docusate Sodium (Colace) 100 mg BID PO 11/08/20 21:00 11/10/20 09:02 Doxycycline Hyclate (Vibramycin) 100 mg BID PO 11/08/20 21:00 11/10/20 09:02 Duloxetine HCl (Cymbalta) 60 mg DAILY PO 11/09/20 09:00 11/10/20 09:02 Fenofibrate (Tricor) 145 mg DAILY PO 11/09/20 09:00 11/10/20 09:04 Glucagon (Glucagon) 1 mg ASDIRECTED PRN SC SEE LABEL COMMENTS 11/08/20 17:15 Glucose (Glucose) 16 GM ASDIRECTED PRN PO SEE LABEL COMMENTS 11/08/20 17:15 Heparin Sodium (Heparin Lock Flush 10units/ml) 10 units ASDIRECTED PRN IV SEE LABEL COMMENTS 11/09/20 01:50 Heparin Sodium (Heparin Lock Flush 10units/ml) 10 units HLF IV 11/09/20 06:00 11/10/20 14:28 Insulin Detemir (Levemir Insulin) 20 units QHS SC 11/09/20 21:00 11/09/20 08:44 DC Insulin Detemir (Levemir Insulin) 30 units QHS SC 11/08/20 21:00 11/09/20 08:03 DC 11/08/20 20:47 Insulin Human Lispro (HumaLOG INSULIN) SEE PROTOCOL TABLE AC SC 11/08/20 17:30 11/09/20 13:38 DC 11/08/20 17:52 Insulin Human Lispro (HumaLOG INSULIN) SEE PROTOCOL TABLE QHS SC 11/08/20 21:00 11/09/20 13:38 DC Lactobacillus Acidophilus (Bacid) 1 ea TID PO 11/08/20 21:00 11/10/20 17:35 Lidocaine/ Diphenhydr/Alum/ Mg/Simeth (Magic Mouthwash) 5ML ACHS SSP 11/08/20 17:30 11/10/20 17:35 Metoprolol Tartrate (Lopressor) 12.5 mg BID PO 11/09/20 21:00 11/10/20 09:04 Metoprolol Tartrate (Lopressor) 25 mg BID PO 11/08/20 21:00 11/09/20 16:34 DC 11/08/20 20:46 Pantoprazole Sodium (Protonix) 40 mg BID PO 11/08/20 21:00 11/10/20 09:03 Pantoprazole Sodium (Protonix) 40 mg DAILY PO 11/09/20 09:00 11/08/20 17:21 DC Prednisone (Deltasone) 40 mg DAILY PO 11/09/20 09:00 11/10/20 09:02 Salmeterol Xinafoate/ Fluticasone (Advair Hfa ) 2 puff RBID INH 11/08/20 20:00 11/10/20 20:00 Senna (Senokot) 1 tab QHS PO 11/08/20 21:00 11/09/20 10:24 Sodium Chloride (Saline Lock Flush) 10 ml ASDIRECTED PRN IV SEE LABEL COMMENTS 11/09/20 01:50 Sodium Chloride (Saline Lock Flush) 10 ml SLF IV 11/09/20 06:00 11/10/20 14:28 Tiotropium [place] (Spiriva Handihaler) 1 inhalation DAILY@08 INH 11/09/20 08:00 11/10/20 07:22 IGNACIA WILHELM MD Nov 10, 2020 21:57
[2020-11-10] MEDS: ACETAMINOPHEN TAB 650MG DOSE (2X325MG) PO PRN (22:26)
[2020-11-10] MEDS: SENNA 8.6 MG TAB (SENOKOT) PO SCH (22:27)
[2020-11-11 06:11] VITALS: BP 140/67
[2020-11-11] MEDS: TIOTROPIUM INHALER/CAPSULE (SPIRIVA) INH SCH (07:34)
[2020-11-11] MEDS: ADVAIR HFA 230/21MCG INHALER INH SCH ×2 (07:36→20:03)
[2020-11-11] MEDS: IPRATROPIUM 0.5MG/ALBUTEROL 2.5MG INH SOL UD 3ML (DUONEB) NEB SCH ×4 (07:36→20:03)
[2020-11-11] MEDS: FENOFIBRATE 145 MG TAB (TRICOR) PO SCH (08:08)
[2020-11-11] MEDS: SODIUM CHLORIDE 0.9% INJ 10 ML SYR IV SCH ×3 (08:08→20:59)
[2020-11-11] MEDS: PANTOPRAZOLE 40MG TAB (PROTONIX) PO SCH ×2 (08:08→20:40)
[2020-11-11] MEDS: APIXABAN 5 MG TAB (ELIQUIS) PO SCH ×2 (08:08→20:40)
[2020-11-11] MEDS: DOXYCYCLINE HYCLATE 100MG TABLET PO SCH ×2 (08:08→20:40)
[2020-11-11] MEDS: predniSONE 20 MG TAB PO SCH (08:09)
[2020-11-11] MEDS: DULoxetine 30 MG CAP (CYMBALTA) PO SCH (08:09)
[2020-11-11] MEDS: DIGOXIN 0.125 MG TAB PO SCH (08:09)
[2020-11-11] MEDS: LACTOBACILLUS ACIDOPHILUS CAP (BACID) PO SCH ×3 (08:09→20:40)
[2020-11-11] MEDS: MAGIC MOUTHWASH SUSPENSION BTL SSP SCH ×4 (08:09→20:40)
[2020-11-11] MEDS: METOPROLOL TART 12.5 MG PER 1/2 TAB PO SCH ×2 (08:09→20:41)
[2020-11-11] MEDS: DOCUSATE SODIUM 100MG CAPSULE PO SCH ×2 (08:09→20:41)
[2020-11-11] MEDS: REMEDY PHYTOPLEX Z-GUARD PASTE 113GM TUBE (FROM STOREROOM PRODUCT) TOP SCH ×3 (08:09→20:40)
[2020-11-11 20:00] VITALS: BP 111/75
[2020-11-11] MEDS: SENNA 8.6 MG TAB (SENOKOT) PO SCH (20:41)
[2020-11-12 05:40] VITALS: BP 143/71
[2020-11-12] MEDS: SODIUM CHLORIDE 0.9% INJ 10 ML SYR IV SCH ×3 (06:45→21:28)
[2020-11-12] MEDS: METOPROLOL TART 12.5 MG PER 1/2 TAB PO SCH ×2 (07:26→21:27)
[2020-11-12] MEDS: DOXYCYCLINE HYCLATE 100MG TABLET PO SCH ×2 (07:26→21:27)
[2020-11-12] MEDS: PANTOPRAZOLE 40MG TAB (PROTONIX) PO SCH ×2 (07:26→21:27)
[2020-11-12] MEDS: DULoxetine 30 MG CAP (CYMBALTA) PO SCH (07:26)
[2020-11-12] MEDS: DOCUSATE SODIUM 100MG CAPSULE PO SCH ×2 (07:26→21:27)
[2020-11-12] MEDS: LACTOBACILLUS ACIDOPHILUS CAP (BACID) PO SCH ×3 (07:26→21:27)
[2020-11-12] MEDS: MAGIC MOUTHWASH SUSPENSION BTL SSP SCH ×4 (07:27→21:28)
[2020-11-12] MEDS: FENOFIBRATE 145 MG TAB (TRICOR) PO SCH (07:27)
[2020-11-12] MEDS: REMEDY PHYTOPLEX Z-GUARD PASTE 113GM TUBE (FROM STOREROOM PRODUCT) TOP SCH ×3 (07:27→21:00)
[2020-11-12] MEDS: APIXABAN 5 MG TAB (ELIQUIS) PO SCH ×2 (07:27→21:27)
[2020-11-12] MEDS: DIGOXIN 0.125 MG TAB PO SCH (07:27)
[2020-11-12] MEDS: predniSONE 20 MG TAB PO SCH (07:27)
[2020-11-12] MEDS: TIOTROPIUM INHALER/CAPSULE (SPIRIVA) INH SCH (07:45)
[2020-11-12] MEDS: IPRATROPIUM 0.5MG/ALBUTEROL 2.5MG INH SOL UD 3ML (DUONEB) NEB SCH ×4 (07:45→19:51)
[2020-11-12] MEDS: ADVAIR HFA 230/21MCG INHALER INH SCH ×2 (07:45→19:51)
[2020-11-12 14:00] VITALS: BP 114/59
[2020-11-12 20:00] VITALS: BP 118/62
[2020-11-12] MEDS: SENNA 8.6 MG TAB (SENOKOT) PO SCH (21:27)
[2020-11-13] MEDS: SODIUM CHLORIDE 0.9% INJ 10 ML SYR IV SCH ×3 (05:05→21:03)
[2020-11-13 05:23] LABS: BASO % 0.2 % (0.0-1.0); EOS % 0.2 % (0.0-3.0); HEMATOCRIT 36.2 % (42.0-52.0); HEMOGLOBIN 11.5 g/dl (13.5-17.5); LYMPH # 1.6 10^3/uL (1.5-5.0); LYMPH % 10.9 % (24.0-44.0); MEAN CORPUSCULAR HEMOGLOBIN 28.7 pg (27.0-33.0); MEAN CORPUSCULAR HGB CONC 31.8 g/dl (32.0-36.5); MEAN CORPUSCULAR VOLUME 90.3 fl (80.0-96.0); MONO # 1.1 10^3/uL (0.0-0.8); MONO % 7.3 % (2.0-8.0); NEUTROPHILS # 11.5 10^3/uL (1.5-8.5); NEUTROPHILS % 79.9 % (36.0-66.0); PLATELET COUNT, AUTOMATED 304 10^3/uL (150-450); RED BLOOD COUNT 4.01 10^6/uL (4.30-6.10); WHITE BLOOD COUNT 14.4 10^3/uL (4.0-10.0)
[2020-11-13 05:37] LABS: BLOOD UREA NITROGEN 31 MG/DL (7-18); CALCIUM LEVEL 9.4 MG/DL (8.8-10.2); CARBON DIOXIDE LEVEL 33 MEQ/L (21-32); CHLORIDE LEVEL 100 MEQ/L (98-107); CREATININE FOR GFR 0.99 MG/DL (0.70-1.30); GLOMERULAR FILTRATION RATE > 60.0 (>35); GLUCOSE, FASTING 111 MG/DL (70-100); POTASSIUM SERUM 4.5 MEQ/L (3.5-5.1); SODIUM LEVEL 137 MEQ/L (136-145)
[2020-11-13 06:10] VITALS: BP 102/57
[2020-11-13] MEDS: ADVAIR HFA 230/21MCG INHALER INH SCH ×2 (07:38→20:33)
[2020-11-13] MEDS: TIOTROPIUM INHALER/CAPSULE (SPIRIVA) INH SCH (07:39)
[2020-11-13] MEDS: IPRATROPIUM 0.5MG/ALBUTEROL 2.5MG INH SOL UD 3ML (DUONEB) NEB SCH ×4 (07:42→20:33)
[2020-11-13] MEDS: LACTOBACILLUS ACIDOPHILUS CAP (BACID) PO SCH ×3 (08:53→20:48)
[2020-11-13] MEDS: DULoxetine 30 MG CAP (CYMBALTA) PO SCH (08:53)
[2020-11-13] MEDS: MAGIC MOUTHWASH SUSPENSION BTL SSP SCH ×4 (08:53→20:48)
[2020-11-13] MEDS: DOCUSATE SODIUM 100MG CAPSULE PO SCH ×2 (08:53→20:48)
[2020-11-13] MEDS: PANTOPRAZOLE 40MG TAB (PROTONIX) PO SCH ×2 (08:53→20:48)
[2020-11-13] MEDS: APIXABAN 5 MG TAB (ELIQUIS) PO SCH ×2 (08:53→20:48)
[2020-11-13] MEDS: FENOFIBRATE 145 MG TAB (TRICOR) PO SCH (08:53)
[2020-11-13] MEDS: predniSONE 20 MG TAB PO SCH (08:53)
[2020-11-13] MEDS: DIGOXIN 0.125 MG TAB PO SCH (08:56)
[2020-11-13] MEDS: METOPROLOL TART 12.5 MG PER 1/2 TAB PO SCH ×2 (08:56→20:49)
[2020-11-13] MEDS: REMEDY PHYTOPLEX Z-GUARD PASTE 113GM TUBE (FROM STOREROOM PRODUCT) TOP SCH ×3 (08:57→20:49)
[2020-11-13] MEDS ORDERED: BARIUM SULFATE 700 MG TABLET (E-Z-DISK) As Ordered ONE (11:54)
[2020-11-13] MEDS ORDERED: E-Z-PAQUE 96% w/w SUSP 176GM BTL As Ordered ONE (11:54)
[2020-11-13] MEDS ORDERED: VARIBAR NECTAR 40% w/v 240ML SUSP BTL As Ordered ONE (11:54)
[2020-11-13] MEDS ORDERED: VARIBAR PUDDING 40% w/v 230ML TUBE As Ordered ONE (11:54)
[2020-11-13 14:00] VITALS: BP 137/57
--- NOTE | 2020-11-13 14:17 | REP ---
INDICATION: dysphagia. COMPARISON: NONE TECHNIQUE: The procedure was performed under the direct supervision of . The procedure was performed with Milla Chao from speech pathology present. 5 CC aliquots of honey, nectar, pudding and soft consistency barium was administered. 1.7 minutes of fluoroscopy time was utilized for this procedure. FINDINGS: With nectar and soft consistency barium there is laryngeal penetration. A detailed report of this examination will be provided by speech pathology. IMPRESSION: With nectar and soft consistency barium there is laryngeal penetration. A detailed report of this examination will be provided by speech pathology. <Electronically signed by Heriberto Whitney > 11/13/20 [id number] <Electronically signed by Lucio Jameson > 11/13/20 [id number]
[2020-11-13] MEDS: ACETAMINOPHEN TAB 650MG DOSE (2X325MG) PO PRN (17:12)
[2020-11-13 19:42] VITALS: BP 128/69
[2020-11-13] MEDS: SENNA 8.6 MG TAB (SENOKOT) PO SCH (20:48)
[2020-11-14] MEDS: SODIUM CHLORIDE 0.9% INJ 10 ML SYR IV SCH ×3 (05:18→21:05)
[2020-11-14 06:00] VITALS: BP 137/66
[2020-11-14] MEDS: TIOTROPIUM INHALER/CAPSULE (SPIRIVA) INH SCH (07:29)
[2020-11-14] MEDS: IPRATROPIUM 0.5MG/ALBUTEROL 2.5MG INH SOL UD 3ML (DUONEB) NEB SCH ×4 (07:29→19:32)
[2020-11-14] MEDS: ADVAIR HFA 230/21MCG INHALER INH SCH ×2 (07:29→19:32)
[2020-11-14] MEDS: MAGIC MOUTHWASH SUSPENSION BTL SSP SCH ×4 (07:49→20:32)
[2020-11-14] MEDS: DULoxetine 30 MG CAP (CYMBALTA) PO SCH (07:50)
[2020-11-14] MEDS: APIXABAN 5 MG TAB (ELIQUIS) PO SCH ×2 (07:50→20:32)
[2020-11-14] MEDS: predniSONE 10 MG TAB PO SCH (07:50)
[2020-11-14] MEDS: DOCUSATE SODIUM 100MG CAPSULE PO SCH ×2 (07:50→20:32)
[2020-11-14] MEDS: PANTOPRAZOLE 40MG TAB (PROTONIX) PO SCH ×2 (07:50→20:32)
[2020-11-14] MEDS: FENOFIBRATE 145 MG TAB (TRICOR) PO SCH (07:51)
[2020-11-14] MEDS: DIGOXIN 0.125 MG TAB PO SCH (07:51)
[2020-11-14] MEDS: METOPROLOL TART 12.5 MG PER 1/2 TAB PO SCH ×2 (07:51→20:31)
[2020-11-14] MEDS: LACTOBACILLUS ACIDOPHILUS CAP (BACID) PO SCH ×3 (07:51→20:31)
[2020-11-14] MEDS: REMEDY PHYTOPLEX Z-GUARD PASTE 113GM TUBE (FROM STOREROOM PRODUCT) TOP SCH ×3 (07:52→20:32)
[2020-11-14 14:00] VITALS: BP 121/59
[2020-11-14 19:57] VITALS: BP 122/58
[2020-11-14] MEDS: SENNA 8.6 MG TAB (SENOKOT) PO SCH (20:32)
[2020-11-15] MEDS: SODIUM CHLORIDE 0.9% INJ 10 ML SYR IV SCH ×3 (05:13→21:03)
[2020-11-15 05:34] LABS: BASO % 0.1 % (0.0-1.0); EOS # 0.2 10^3/uL (0.0-0.5); EOS % 0.9 % (0.0-3.0); HEMATOCRIT 34.1 % (42.0-52.0); HEMOGLOBIN 11.1 g/dl (13.5-17.5); LYMPH # 1.7 10^3/uL (1.5-5.0); LYMPH % 10.5 % (24.0-44.0); MEAN CORPUSCULAR HEMOGLOBIN 29.1 pg (27.0-33.0); MEAN CORPUSCULAR HGB CONC 32.6 g/dl (32.0-36.5); MEAN CORPUSCULAR VOLUME 89.5 fl (80.0-96.0); MONO % 6.1 % (2.0-8.0); NEUTROPHILS # 13.5 10^3/uL (1.5-8.5); NEUTROPHILS % 81.6 % (36.0-66.0); PLATELET COUNT, AUTOMATED 254 10^3/uL (150-450); RED BLOOD COUNT 3.81 10^6/uL (4.30-6.10); WHITE BLOOD COUNT 16.6 10^3/uL (4.0-10.0)
[2020-11-15 05:56] LABS: BLOOD UREA NITROGEN 27 MG/DL (7-18); CALCIUM LEVEL 8.7 MG/DL (8.8-10.2); CARBON DIOXIDE LEVEL 32 MEQ/L (21-32); CHLORIDE LEVEL 101 MEQ/L (98-107); CREATININE FOR GFR 0.84 MG/DL (0.70-1.30); GLOMERULAR FILTRATION RATE > 60.0 (>35); GLUCOSE, FASTING 92 MG/DL (70-100); POTASSIUM SERUM 4.2 MEQ/L (3.5-5.1); SODIUM LEVEL 136 MEQ/L (136-145)
[2020-11-15] MEDS: IPRATROPIUM 0.5MG/ALBUTEROL 2.5MG INH SOL UD 3ML (DUONEB) NEB SCH ×4 (07:26→20:26)
[2020-11-15] MEDS: TIOTROPIUM INHALER/CAPSULE (SPIRIVA) INH SCH (07:27)
[2020-11-15] MEDS: ADVAIR HFA 230/21MCG INHALER INH SCH ×2 (07:29→20:26)
[2020-11-15] MEDS: APIXABAN 5 MG TAB (ELIQUIS) PO SCH ×2 (07:30→20:46)
[2020-11-15] MEDS: METOPROLOL TART 12.5 MG PER 1/2 TAB PO SCH ×2 (07:30→20:46)
[2020-11-15] MEDS: DULoxetine 30 MG CAP (CYMBALTA) PO SCH (07:30)
[2020-11-15] MEDS: predniSONE 10 MG TAB PO SCH (07:30)
[2020-11-15] MEDS: DOCUSATE SODIUM 100MG CAPSULE PO SCH ×2 (07:30→20:46)
[2020-11-15] MEDS: FENOFIBRATE 145 MG TAB (TRICOR) PO SCH (07:30)
[2020-11-15] MEDS: PANTOPRAZOLE 40MG TAB (PROTONIX) PO SCH ×2 (07:30→20:46)
[2020-11-15] MEDS: DIGOXIN 0.125 MG TAB PO SCH (07:30)
[2020-11-15] MEDS: LACTOBACILLUS ACIDOPHILUS CAP (BACID) PO SCH ×3 (07:31→20:46)
[2020-11-15] MEDS: REMEDY PHYTOPLEX Z-GUARD PASTE 113GM TUBE (FROM STOREROOM PRODUCT) TOP SCH ×3 (07:31→20:46)
[2020-11-15] MEDS: MAGIC MOUTHWASH SUSPENSION BTL SSP SCH ×4 (07:31→20:46)
[2020-11-15 14:00] VITALS: BP 112/55
[2020-11-15 20:00] VITALS: BP 135/71
[2020-11-15] MEDS: SENNA 8.6 MG TAB (SENOKOT) PO SCH (20:45)
--- NOTE | 2020-11-15 21:00 | IPNPDOC ---
PM&R Progress Note DATE OF SERVICE: Nov 15, 2020 Hand Packer Progress Note Subjective: Patient seen in his room stating that this morning he felt off, but feels better this afternoon. REVIEW OF SYSTEMS: The following is a completed review of systems and has been reviewed. Review of systems otherwise unremarkable. PAIN: Patient self reports no pain EYES: No recent vision changes EARS, NOSE, & THROAT: + dysphagia CARDIOVASCULAR: Denies chest pain or palpitations PULMONARY: +shortness of breath on exertion GASTROINTESTINAL: Denies constipation/diarrhea GENITOURINARY: denies dysuria MUSCULOSKELETAL: generalized weakness NEUROLOGICAL: no tremor or paresthesias HEMATOLOGICAL: denies easy bruising SKIN: sacral ulcers PSYCHIATRIC: Unremarkable All other review of systems found to be negative. PHYSICAL EXAMINATION: VITAL SIGNS: Please see below. GENERAL: Pleasant and cooperative. No acute distress. HEENT: PERRL. Extraocular movements intact. Clear conjunctiva, moist oral mucosa CARDIOVASCULAR: Regular rate and rhythm. No murmurs, rubs, or gallops LUNGS: Clear to auscultation bilaterally. No wheezes. No rhonchi ABDOMEN: Soft, nontender, nondistended. Positive bowel sounds. Normal active bowel sounds NEUROLOGICAL: Alert and oriented times three. Cranial nerves II through XII grossly intact. Sensation grossly intact. EXTREMITIES: 4\5 strength bilateral upper extremities. 4\5 strength right lower extremity. 4/5 strength in left lower extremity. (-) LE edema SKIN: +sacral ulcers, scattered LE excoriations ASSESSMENT:85-year-old M with past medical history of COPD, CAD who presents status post sepsis in setting of PNA and CHF exacerbation PLAN: 1. Rehab- PT/OT avance mobility and ADLs-stretch/strengthen/maintain ROM all 4l limbs- ambulating with RW REGIONAL BRANCH MANAGER for dysphagia 2/ Neuro- MRI negative for infarct 2. Cardiac- Afib c/u eliquis, digoxin, metoprolol -CHF- daily weights, on honey thickened liquids, will avoid fluid restriction, free water protocol -HLD- c/u tricor 3. resp- hx of COPD on 02 with recent COPD exacerbation and PNA- s/p course of doxycycline, inhalers, and steroids- breathing overall improved -Leukocytosis- on oral steroids, repeat CT chest showing overall improvements, no concern for new infection -HOB 30 degrees aspiration precautions 4. Endo- hx of DM with hypoglycemia, insulin held, c/u FS and hypoglycemic protocol 5. DVT ppx on eliquis 6. GI ppx -protonix BID 7. Psych- cymbalta 8. Dispo- 11-21-20 to home, progressing towards goals Allergies Coded Allergies: No Known Allergies (Verified , 03/06/04) Vital Signs Vital Signs Date Time Temp Pulse Resp B/P (MAP) Pulse Ox O2 Delivery O2 Flow Rate FiO2 11/15/20 20:46 85 135/71 11/15/20 20:27 Nasal Cannula 2.0 11/15/20 14:00 97.8 18 92 11/13/20 20:33 32 Laboratory Data CBC/BMP Laboratory Tests 11/15/20 05:12 Labs 24H Laboratory Tests 2 11/15/20 05:12: Immature Granulocyte % (Auto) 0.8, Neutrophils (%) (Auto) 81.6H, Lymphocytes (%) (Auto) 10.5L, Monocytes (%) (Auto) 6.1, Eosinophils (%) (Auto) 0.9, Basophils (%) (Auto) 0.1, Neutrophils # (Auto) 13.5H, Lymphocytes # (Auto) 1.7, Monocytes # (Auto) 1.0H, Eosinophils # (Auto) 0.2, Basophils # (Auto) 0.0, Nucleated Red Blood Cells % (auto) 0.0, Anion Gap 3L, Glomerular Filtration Rate > 60.0, Calcium Level 8.7L 11/15/20 11:41: Bedside Glucose (Misc Panel) 158H 11/15/20 16:29: Bedside Glucose (Misc Panel) 159H 11/15/20 19:53: Bedside Glucose (Misc Panel) 165H Microbiology Microbiology 11/15/20 Respiratory Virus Panel (PCR) (TEO) - Final, Complete Current Medications Current Medications Current Medications Medications (Trade) Dose Ordered Sig/Mata Route PRN Reason Start Time Stop Time Status Last Admin Dose Admin Acetaminophen (Tylenol Tab) 650 mg Q4HP PRN PO fever/MILD PAIN (PS 1-4) 11/08/20 17:10 11/13/20 17:12 Albuterol/ Ipratropium (Duoneb (Ipr 0.5mg/Alb 2.5mg)) 3 ml RQID NEB 11/08/20 20:00 11/15/20 20:26 Amlodipine Besylate (Norvasc) 2.5 mg DAILY PO 11/09/20 09:00 11/09/20 16:34 DC Apixaban (Eliquis) 5 mg BID PO 11/08/20 21:00 11/15/20 20:46 Bisacodyl (Dulcolax Suppository) 10 mg DAILYPRN PRN [place] CONSTIPATION 11/08/20 17:10 Dextrose (Dextrose 50%) 25 ml ASDIRECTED PRN IV SEE LABEL COMMENTS 11/08/20 17:15 Digoxin (Lanoxin) 0.125 mg DAILY PO 11/09/20 09:00 11/15/20 07:30 Docusate Sodium (Colace) 100 mg BID PO 11/08/20 21:00 11/15/20 20:46 Doxycycline Hyclate (Vibramycin) 100 mg BID PO 11/08/20 21:00 11/13/20 07:47 DC 11/12/20 21:27 Duloxetine HCl (Cymbalta) 60 mg DAILY PO 11/09/20 09:00 11/15/20 07:30 Fenofibrate (Tricor) 145 mg DAILY PO 11/09/20 09:00 11/15/20 07:30 Glucagon (Glucagon) 1 mg ASDIRECTED PRN SC SEE LABEL COMMENTS 11/08/20 17:15 Glucose (Glucose) 16 GM ASDIRECTED PRN PO SEE LABEL COMMENTS 11/08/20 17:15 Heparin Sodium (Heparin Lock Flush 10units/ml) 10 units ASDIRECTED PRN IV SEE LABEL COMMENTS 11/09/20 01:50 11/10/20 22:26 Heparin Sodium (Heparin Lock Flush 10units/ml) 10 units HLF IV 11/09/20 06:00 11/15/20 13:05 Insulin Detemir (Levemir Insulin) 20 units QHS SC 11/09/20 21:00 11/09/20 08:44 DC Insulin Detemir (Levemir Insulin) 30 units QHS SC 11/08/20 21:00 11/09/20 08:03 DC 11/08/20 20:47 Insulin Human Lispro (HumaLOG INSULIN) SEE PROTOCOL TABLE AC SC 11/08/20 17:30 11/09/20 13:38 DC 11/08/20 17:52 Insulin Human Lispro (HumaLOG INSULIN) SEE PROTOCOL TABLE QHS SC 11/08/20 21:00 11/09/20 13:38 DC Lactobacillus Acidophilus (Bacid) 1 ea TID PO 11/08/20 21:00 11/15/20 20:46 Lidocaine/ Diphenhydr/Alum/ Mg/Simeth (Magic Mouthwash) 5ML ACHS SSP 11/08/20 17:30 11/15/20 20:46 Metoprolol Tartrate (Lopressor) 12.5 mg BID PO 11/09/20 21:00 11/15/20 20:46 Metoprolol Tartrate (Lopressor) 25 mg BID PO 11/08/20 21:00 11/09/20 16:34 DC 11/08/20 20:46 Pantoprazole Sodium (Protonix) 40 mg BID PO 11/08/20 21:00 11/15/20 20:46 Pantoprazole Sodium (Protonix) 40 mg DAILY PO 11/09/20 09:00 11/08/20 17:21 DC Prednisone (Deltasone) 30 mg DAILY PO 11/14/20 09:00 11/15/20 07:30 Prednisone (Deltasone) 40 mg DAILY PO 11/09/20 09:00 11/13/20 10:00 DC 11/13/20 08:53 Salmeterol Xinafoate/ Fluticasone (Advair Hfa / ) 2 puff RBID INH 11/08/20 20:00 11/15/20 20:26 Senna (Senokot) 1 tab QHS PO 11/08/20 21:00 11/15/20 20:45 Sodium Chloride (Saline Lock Flush) 10 ml ASDIRECTED PRN IV SEE LABEL COMMENTS 11/09/20 01:50 11/10/20 22:26 Sodium Chloride (Saline Lock Flush) 10 ml SLF IV 11/09/20 06:00 11/15/20 13:05 Tiotropium [place] (Spiriva Handihaler) 1 inhalation DAILY@08 INH 11/09/20 08:00 11/15/20 07:27 IGNACIA WILHELM MD Nov 15, 2020 21:00
[2020-11-16 05:31] VITALS: BP 136/62
[2020-11-16] MEDS: SODIUM CHLORIDE 0.9% INJ 10 ML SYR IV SCH ×3 (06:09→21:04)
[2020-11-16] MEDS: REMEDY PHYTOPLEX Z-GUARD PASTE 113GM TUBE (FROM STOREROOM PRODUCT) TOP SCH ×3 (07:24→20:57)
[2020-11-16] MEDS: MAGIC MOUTHWASH SUSPENSION BTL SSP SCH ×4 (07:24→20:57)
[2020-11-16] MEDS: DIGOXIN 0.125 MG TAB PO SCH (07:25)
[2020-11-16] MEDS: METOPROLOL TART 12.5 MG PER 1/2 TAB PO SCH ×2 (07:25→20:57)
[2020-11-16] MEDS: DULoxetine 30 MG CAP (CYMBALTA) PO SCH (07:25)
[2020-11-16] MEDS: PANTOPRAZOLE 40MG TAB (PROTONIX) PO SCH ×2 (07:25→20:56)
[2020-11-16] MEDS: LACTOBACILLUS ACIDOPHILUS CAP (BACID) PO SCH ×3 (07:25→20:56)
[2020-11-16] MEDS: APIXABAN 5 MG TAB (ELIQUIS) PO SCH ×2 (07:25→20:56)
[2020-11-16] MEDS: DOCUSATE SODIUM 100MG CAPSULE PO SCH ×2 (07:26→20:56)
[2020-11-16] MEDS: predniSONE 10 MG TAB PO SCH (07:26)
[2020-11-16] MEDS: FENOFIBRATE 145 MG TAB (TRICOR) PO SCH (07:26)
--- NOTE | 2020-11-16 10:38 | IPNPDOC ---
PM&R Progress Note DATE OF SERVICE: Nov 16, 2020 Appointment Manager Progress Note Subjective: Patient seen in his room reporting he is feeling well, denies any worsening cough or congestion. REVIEW OF SYSTEMS: The following is a completed review of systems and has been reviewed. Review of systems otherwise unremarkable. PAIN: Patient self reports no pain EYES: No recent vision changes EARS, NOSE, & THROAT: + dysphagia CARDIOVASCULAR: Denies chest pain or palpitations PULMONARY: +shortness of breath on exertion GASTROINTESTINAL: Denies constipation/diarrhea GENITOURINARY: denies dysuria MUSCULOSKELETAL: generalized weakness NEUROLOGICAL: no tremor or paresthesias HEMATOLOGICAL: denies easy bruising SKIN: sacral ulcers PSYCHIATRIC: Unremarkable All other review of systems found to be negative. PHYSICAL EXAMINATION: VITAL SIGNS: Please see below. GENERAL: Pleasant and cooperative. No acute distress. HEENT: PERRL. Extraocular movements intact. Clear conjunctiva, moist oral mucosa CARDIOVASCULAR: Regular rate and rhythm. No murmurs, rubs, or gallops LUNGS: Clear to auscultation bilaterally. No wheezes. No rhonchi ABDOMEN: Soft, nontender, nondistended. Positive bowel sounds. Normal active bowel sounds NEUROLOGICAL: Alert and oriented times three. Cranial nerves II through XII grossly intact. Sensation grossly intact. EXTREMITIES: 4\5 strength bilateral upper extremities. 4\5 strength right lower extremity. 4/5 strength in left lower extremity. (-) LE edema SKIN: +sacral ulcers, scattered LE excoriations ASSESSMENT:85-year-old M with past medical history of COPD, CAD who presents status post sepsis in setting of PNA and CHF exacerbation PLAN: 1. Rehab- PT/OT avance mobility and ADLs-stretch/strengthen/maintain ROM all 4l limbs- ambulating with RW [employer] POWER PLANT SUPERINTENDENT for dysphagia 2/ Neuro- MRI negative for infarct 2. Cardiac- Afib c/u eliquis, digoxin, metoprolol -CHF- daily weights, on honey thickened liquids, will avoid fluid restriction, free water protocol -HLD- c/u tricor 3. resp- hx of COPD on 02 with recent COPD exacerbation and PNA- s/p course of doxycycline, inhalers, and steroids- breathing overall improved -Leukocytosis- on oral steroids, repeat CT chest showing overall improvements, no concern for new infection -HOB 30 degrees aspiration precautions 4. Endo- hx of DM with hypoglycemia, insulin held, c/u FS and hypoglycemic protocol 5. DVT ppx on eliquis 6. GI ppx -protonix BID 7. Psych- cymbalta 8. Dispo- 11-21-20 to home, progressing towards goals Allergies Coded Allergies: No Known Allergies (Verified , 03/06/04) Vital Signs Vital Signs Date Time Temp Pulse Resp B/P (MAP) Pulse Ox O2 Delivery O2 Flow Rate FiO2 11/16/20 08:00 3.0 11/16/20 07:25 81 136/62 11/16/20 05:31 96.3 20 99 Nasal Cannula 11/13/20 20:33 32 Laboratory Data Labs 24H Laboratory Tests 2 11/15/20 11:41: Bedside Glucose (Misc Panel) 158H 11/15/20 16:29: Bedside Glucose (Misc Panel) 159H 11/15/20 19:53: Bedside Glucose (Misc Panel) 165H 11/16/20 05:09: Bedside Glucose (Misc Panel) 93 Microbiology Microbiology 11/15/20 Respiratory Virus Panel (PCR) (TEO) - Final, Complete Current Medications Current Medications Current Medications Medications (Trade) Dose Ordered Sig/Mata Route PRN Reason Start Time Stop Time Status Last Admin Dose Admin Acetaminophen (Tylenol Tab) 650 mg Q4HP PRN PO fever/MILD PAIN (PS 1-4) 11/08/20 17:10 11/13/20 17:12 Albuterol/ Ipratropium (Combivent Respimat 100-20mcg) 1 puff RTID INH 11/16/20 08:00 Albuterol/ Ipratropium (Duoneb (Ipr 0.5mg/Alb 2.5mg)) 3 ml RQID NEB 11/08/20 20:00 11/16/20 08:03 DC 11/15/20 20:26 Amlodipine Besylate (Norvasc) 2.5 mg DAILY PO 11/09/20 09:00 11/09/20 16:34 DC Apixaban (Eliquis) 5 mg BID PO 11/08/20 21:00 11/16/20 07:25 Bisacodyl (Dulcolax Suppository) 10 mg DAILYPRN PRN [place] CONSTIPATION 11/08/20 17:10 Dextrose (Dextrose 50%) 25 ml ASDIRECTED PRN IV SEE LABEL COMMENTS 11/08/20 17:15 Digoxin (Lanoxin) 0.125 mg DAILY PO 11/09/20 09:00 11/16/20 07:25 Docusate Sodium (Colace) 100 mg BID PO 11/08/20 21:00 11/15/20 20:46 Doxycycline Hyclate (Vibramycin) 100 mg BID PO 11/08/20 21:00 11/13/20 07:47 DC 11/12/20 21:27 Duloxetine HCl (Cymbalta) 60 mg DAILY PO 11/09/20 09:00 11/16/20 07:25 Fenofibrate (Tricor) 145 mg DAILY PO 11/09/20 09:00 11/16/20 07:26 Glucagon (Glucagon) 1 mg ASDIRECTED PRN SC SEE LABEL COMMENTS 11/08/20 17:15 Glucose (Glucose) 16 GM ASDIRECTED PRN PO SEE LABEL COMMENTS 11/08/20 17:15 Heparin Sodium (Heparin Lock Flush 10units/ml) 10 units ASDIRECTED PRN IV SEE LABEL COMMENTS 11/09/20 01:50 11/10/20 22:26 Heparin Sodium (Heparin Lock Flush 10units/ml) 10 units HLF IV 11/09/20 06:00 11/16/20 06:09 Insulin Detemir (Levemir Insulin) 20 units QHS SC 11/09/20 21:00 11/09/20 08:44 DC Insulin Detemir (Levemir Insulin) 30 units QHS SC 11/08/20 21:00 11/09/20 08:03 DC 11/08/20 20:47 Insulin Human Lispro (HumaLOG INSULIN) SEE PROTOCOL TABLE AC SC 11/08/20 17:30 11/09/20 13:38 DC 11/08/20 17:52 Insulin Human Lispro (HumaLOG INSULIN) SEE PROTOCOL TABLE QHS SC 11/08/20 21:00 11/09/20 13:38 DC Lactobacillus Acidophilus (Bacid) 1 ea TID PO 11/08/20 21:00 11/16/20 07:25 Lidocaine/ Diphenhydr/Alum/ Mg/Simeth (Magic Mouthwash) 5ML ACHS SSP 11/08/20 17:30 11/16/20 07:24 Metoprolol Tartrate (Lopressor) 12.5 mg BID PO 11/09/20 21:00 11/16/20 07:25 Metoprolol Tartrate (Lopressor) 25 mg BID PO 11/08/20 21:00 11/09/20 16:34 DC 11/08/20 20:46 Pantoprazole Sodium (Protonix) 40 mg BID PO 11/08/20 21:00 11/16/20 07:25 Pantoprazole Sodium (Protonix) 40 mg DAILY PO 11/09/20 09:00 11/08/20 17:21 DC Prednisone (Deltasone) 30 mg DAILY PO 11/14/20 09:00 11/16/20 07:26 Prednisone (Deltasone) 40 mg DAILY PO 11/09/20 09:00 11/13/20 10:00 DC 11/13/20 08:53 Salmeterol Xinafoate/ Fluticasone (Advair Hfa ) 2 puff RBID INH 11/08/20 20:00 11/15/20 20:26 Senna (Senokot) 1 tab QHS PO 11/08/20 21:00 11/15/20 20:45 Sodium Chloride (Saline Lock Flush) 10 ml ASDIRECTED PRN IV SEE LABEL COMMENTS 11/09/20 01:50 11/10/20 22:26 Sodium Chloride (Saline Lock Flush) 10 ml SLF IV 11/09/20 06:00 11/16/20 06:09 Tiotropium [place] (Spiriva Handihaler) 1 inhalation DAILY@08 INH 11/09/20 08:00 11/15/20 07:27 IGNACIA WILHELM MD Nov 16, 2020 10:38
[2020-11-16] MEDS: TIOTROPIUM INHALER/CAPSULE (SPIRIVA) INH SCH (11:15)
[2020-11-16] MEDS: ADVAIR HFA 230/21MCG INHALER INH SCH ×2 (11:15→20:46)
[2020-11-16] MEDS: COMBIVENT RESPIMAT 100-20MCG INHALER 4GM INH SCH ×3 (11:15→20:46)
[2020-11-16 14:00] VITALS: BP 137/65
[2020-11-16 20:00] VITALS: BP 115/62
[2020-11-16] MEDS: SENNA 8.6 MG TAB (SENOKOT) PO SCH (20:56)
[2020-11-17 05:39] VITALS: BP 135/63
[2020-11-17] MEDS: SODIUM CHLORIDE 0.9% INJ 10 ML SYR IV SCH ×3 (06:29→22:02)
[2020-11-17 06:54] LABS: BASO % 0.1 % (0.0-1.0); EOS # 0.1 10^3/uL (0.0-0.5); EOS % 1.2 % (0.0-3.0); HEMOGLOBIN 10.6 g/dl (13.5-17.5); LYMPH # 1.4 10^3/uL (1.5-5.0); LYMPH % 12.5 % (24.0-44.0); MEAN CORPUSCULAR HGB CONC 32.1 g/dl (32.0-36.5); MEAN CORPUSCULAR VOLUME 90.2 fl (80.0-96.0); MONO # 0.7 10^3/uL (0.0-0.8); MONO % 6.5 % (2.0-8.0); NEUTROPHILS # 8.9 10^3/uL (1.5-8.5); NEUTROPHILS % 78.5 % (36.0-66.0); PLATELET COUNT, AUTOMATED 216 10^3/uL (150-450); RED BLOOD COUNT 3.66 10^6/uL (4.30-6.10); WHITE BLOOD COUNT 11.3 10^3/uL (4.0-10.0)
[2020-11-17 07:10] LABS: BLOOD UREA NITROGEN 22 MG/DL (7-18); CALCIUM LEVEL 8.8 MG/DL (8.8-10.2); CARBON DIOXIDE LEVEL 32 MEQ/L (21-32); CHLORIDE LEVEL 102 MEQ/L (98-107); CREATININE FOR GFR 0.77 MG/DL (0.70-1.30); GLOMERULAR FILTRATION RATE > 60.0 (>35); GLUCOSE, FASTING 108 MG/DL (70-100); POTASSIUM SERUM 4.2 MEQ/L (3.5-5.1); SODIUM LEVEL 137 MEQ/L (136-145)
[2020-11-17] MEDS: DULoxetine 30 MG CAP (CYMBALTA) PO SCH (07:22)
[2020-11-17] MEDS: FENOFIBRATE 145 MG TAB (TRICOR) PO SCH (07:22)
[2020-11-17] MEDS: DOCUSATE SODIUM 100MG CAPSULE PO SCH ×2 (07:22→21:10)
[2020-11-17] MEDS: METOPROLOL TART 12.5 MG PER 1/2 TAB PO SCH ×2 (07:22→21:10)
[2020-11-17] MEDS: LACTOBACILLUS ACIDOPHILUS CAP (BACID) PO SCH ×3 (07:22→21:09)
[2020-11-17] MEDS: DIGOXIN 0.125 MG TAB PO SCH (07:22)
[2020-11-17] MEDS: predniSONE 10 MG TAB PO SCH (07:23)
[2020-11-17] MEDS: REMEDY PHYTOPLEX Z-GUARD PASTE 113GM TUBE (FROM STOREROOM PRODUCT) TOP SCH ×3 (07:23→21:12)
[2020-11-17] MEDS: APIXABAN 5 MG TAB (ELIQUIS) PO SCH ×2 (07:23→21:09)
[2020-11-17] MEDS: MAGIC MOUTHWASH SUSPENSION BTL SSP SCH ×4 (07:23→21:10)
[2020-11-17] MEDS: PANTOPRAZOLE 40MG TAB (PROTONIX) PO SCH ×2 (07:23→21:10)
[2020-11-17] MEDS: TIOTROPIUM INHALER/CAPSULE (SPIRIVA) INH SCH (07:36)
[2020-11-17] MEDS: ADVAIR HFA 230/21MCG INHALER INH SCH ×2 (07:37→19:29)
[2020-11-17] MEDS: COMBIVENT RESPIMAT 100-20MCG INHALER 4GM INH SCH ×3 (07:37→19:29)
[2020-11-17 13:50] VITALS: BP 119/56
[2020-11-17 20:15] VITALS: BP 120/58
[2020-11-17] MEDS: SENNA 8.6 MG TAB (SENOKOT) PO SCH (21:10)
--- NOTE | 2020-11-17 21:33 | IPNPDOC ---
PM&R Progress Note DATE OF SERVICE: Nov 17, 2020 Powder Mill Operator Progress Note Subjective: Patient reporting he feel comfortable doing the free water protocol and has no complaints. REVIEW OF SYSTEMS: The following is a completed review of systems and has been reviewed. Review of systems otherwise unremarkable. PAIN: Patient self reports no pain EYES: No recent vision changes EARS, NOSE, & THROAT: + dysphagia CARDIOVASCULAR: Denies chest pain or palpitations PULMONARY: +shortness of breath on exertion (improved) GASTROINTESTINAL: Denies constipation/diarrhea GENITOURINARY: denies dysuria MUSCULOSKELETAL: generalized weakness NEUROLOGICAL: no tremor or paresthesias HEMATOLOGICAL: denies easy bruising SKIN: sacral ulcers PSYCHIATRIC: Unremarkable All other review of systems found to be negative. PHYSICAL EXAMINATION: VITAL SIGNS: Please see below. GENERAL: Pleasant and cooperative. No acute distress. HEENT: PERRL. Extraocular movements intact. Clear conjunctiva, moist oral mucosa CARDIOVASCULAR: Regular rate and rhythm. No murmurs, rubs, or gallops LUNGS: Clear to auscultation bilaterally. No wheezes. No rhonchi ABDOMEN: Soft, nontender, nondistended. Positive bowel sounds. Normal active bowel sounds NEUROLOGICAL: Alert and oriented times three. Cranial nerves II through XII grossly intact. Sensation grossly intact. EXTREMITIES: 4\5 strength bilateral upper extremities. 4\5 strength right lower extremity. 4/5 strength in left lower extremity. (-) LE edema SKIN: +sacral ulcers, scattered LE excoriations ASSESSMENT:85-year-old M with past medical history of COPD, CAD who presents status post sepsis in setting of PNA and CHF exacerbation PLAN: 1. Rehab- PT/OT advance mobility and ADLs-stretch/strengthen/maintain ROM all 4l limbs- ambulating with RW SUMMER CHILD CAREGIVER for dysphagia 2/ Neuro- MRI negative for infarct 2. Cardiac- Afib c/u eliquis, digoxin, metoprolol -CHF- daily weights, on honey thickened liquids, will avoid fluid restriction, free water protocol -HLD- c/u tricor 3. resp- hx of COPD on 02 with recent COPD exacerbation and PNA- s/p course of doxycycline, inhalers, and steroids- breathing overall improved -Leukocytosis- on oral steroids, repeat CT chest showing overall improvements, no concern for new infection -HOB 30 degrees aspiration precautions 4. Endo- hx of DM with hypoglycemia, insulin held, c/u FS and hypoglycemic protocol 5. DVT ppx on eliquis 6. GI ppx -protonix BID 7. Psych- cymbalta 8. Dispo- 11-21-20 to home, progressing towards goals Allergies Coded Allergies: No Known Allergies (Verified , 03/06/04) Vital Signs Vital Signs Date Time Temp Pulse Resp B/P (MAP) Pulse Ox O2 Delivery O2 Flow Rate FiO2 11/17/20 21:10 81 120/58 11/17/20 13:50 97.3 20 99 Nasal Cannula 3.0 11/13/20 20:33 32 Laboratory Data CBC/BMP Laboratory Tests 11/17/20 06:00 Labs 24H Laboratory Tests 2 11/17/20 05:19: Bedside Glucose (Misc Panel) 102 11/17/20 06:00: Immature Granulocyte % (Auto) 1.2, Neutrophils (%) (Auto) 78.5H, Lymphocytes (%) (Auto) 12.5L, Monocytes (%) (Auto) 6.5, Eosinophils (%) (Auto) 1.2, Basophils (%) (Auto) 0.1, Neutrophils # (Auto) 8.9H, Lymphocytes # (Auto) 1.4L, Monocytes # (Auto) 0.7, Eosinophils # (Auto) 0.1, Basophils # (Auto) 0.0, Nucleated Red Blood Cells % (auto) 0.0, Anion Gap 3L, Glomerular Filtration Rate > 60.0, Calcium Level 8.8 11/17/20 11:32: Bedside Glucose (Misc Panel) 132H 11/17/20 16:45: Bedside Glucose (Misc Panel) 183H 11/17/20 20:24: Bedside Glucose (Misc Panel) 151H Microbiology Microbiology 11/15/20 Respiratory Virus Panel (PCR) (TEO) - Final, Complete Current Medications Current Medications Current Medications Medications (Trade) Dose Ordered Sig/Mata Route PRN Reason Start Time Stop Time Status Last Admin Dose Admin Acetaminophen (Tylenol Tab) 650 mg Q4HP PRN PO fever/MILD PAIN (PS 1-4) 11/08/20 17:10 11/13/20 17:12 Albuterol/ Ipratropium (Combivent Respimat 100-20mcg) 1 puff RTID INH 11/16/20 08:00 11/17/20 19:29 Albuterol/ Ipratropium (Duoneb (Ipr 0.5mg/Alb 2.5mg)) 3 ml RQID NEB 11/08/20 20:00 11/16/20 08:03 DC 11/15/20 20:26 Amlodipine Besylate (Norvasc) 2.5 mg DAILY PO 11/09/20 09:00 11/09/20 16:34 DC Apixaban (Eliquis) 5 mg BID PO 11/08/20 21:00 11/17/20 21:09 Bisacodyl (Dulcolax Suppository) 10 mg DAILYPRN PRN [place] CONSTIPATION 11/08/20 17:10 Dextrose (Dextrose 50%) 25 ml ASDIRECTED PRN IV SEE LABEL COMMENTS 11/08/20 17:15 Digoxin (Lanoxin) 0.125 mg DAILY PO 11/09/20 09:00 11/17/20 07:22 Docusate Sodium (Colace) 100 mg BID PO 11/08/20 21:00 11/17/20 21:10 Doxycycline Hyclate (Vibramycin) 100 mg BID PO 11/08/20 21:00 11/13/20 07:47 DC 11/12/20 21:27 Duloxetine HCl (Cymbalta) 60 mg DAILY PO 11/09/20 09:00 11/17/20 07:22 Fenofibrate (Tricor) 145 mg DAILY PO 11/09/20 09:00 11/17/20 07:22 Glucagon (Glucagon) 1 mg ASDIRECTED PRN SC SEE LABEL COMMENTS 11/08/20 17:15 Glucose (Glucose) 16 GM ASDIRECTED PRN PO SEE LABEL COMMENTS 11/08/20 17:15 Heparin Sodium (Heparin Lock Flush 10units/ml) 10 units ASDIRECTED PRN IV SEE LABEL COMMENTS 11/09/20 01:50 11/10/20 22:26 Heparin Sodium (Heparin Lock Flush 10units/ml) 10 units HLF IV 11/09/20 06:00 11/17/20 13:31 Insulin Detemir (Levemir Insulin) 20 units QHS SC 11/09/20 21:00 11/09/20 08:44 DC Insulin Detemir (Levemir Insulin) 30 units QHS SC 11/08/20 21:00 11/09/20 08:03 DC 11/08/20 20:47 Insulin Human Lispro (HumaLOG INSULIN) SEE PROTOCOL TABLE AC SC 11/08/20 17:30 11/09/20 13:38 DC 11/08/20 17:52 Insulin Human Lispro (HumaLOG INSULIN) SEE PROTOCOL TABLE QHS SC 11/08/20 21:00 11/09/20 13:38 DC Lactobacillus Acidophilus (Bacid) 1 ea TID PO 11/08/20 21:00 11/17/20 21:09 Lidocaine/ Diphenhydr/Alum/ Mg/Simeth (Magic Mouthwash) 5ML ACHS SSP 11/08/20 17:30 11/17/20 21:10 Metoprolol Tartrate (Lopressor) 12.5 mg BID PO 11/09/20 21:00 11/17/20 21:10 Metoprolol Tartrate (Lopressor) 25 mg BID PO 11/08/20 21:00 11/09/20 16:34 DC 11/08/20 20:46 Pantoprazole Sodium (Protonix) 40 mg BID PO 11/08/20 21:00 11/17/20 21:10 Pantoprazole Sodium (Protonix) 40 mg DAILY PO 11/09/20 09:00 11/08/20 17:21 DC Prednisone (Deltasone) 30 mg DAILY PO 11/14/20 09:00 11/17/20 07:23 Prednisone (Deltasone) 40 mg DAILY PO 11/09/20 09:00 11/13/20 10:00 DC 11/13/20 08:53 Salmeterol Xinafoate/ Fluticasone (Advair Hfa 230/ ) 2 puff RBID INH 11/08/20 20:00 11/17/20 19:29 Senna (Senokot) 1 tab QHS PO 11/08/20 21:00 11/17/20 21:10 Sodium Chloride (Saline Lock Flush) 10 ml ASDIRECTED PRN IV SEE LABEL COMMENTS 11/09/20 01:50 11/10/20 22:26 Sodium Chloride (Saline Lock Flush) 10 ml SLF IV 11/09/20 06:00 11/17/20 13:31 Tiotropium [place] (Spiriva Handihaler) 1 inhalation DAILY@08 INH 11/09/20 08:00 11/17/20 07:36 IGNACIA WILHELM MD Nov 17, 2020 21:33
[2020-11-18] MEDS: SODIUM CHLORIDE 0.9% INJ 10 ML SYR IV SCH ×3 (05:44→21:46)
[2020-11-18 05:55] VITALS: BP 136/58
[2020-11-18] MEDS: ADVAIR HFA 230/21MCG INHALER INH SCH ×2 (07:37→19:41)
[2020-11-18] MEDS: COMBIVENT RESPIMAT 100-20MCG INHALER 4GM INH SCH ×3 (07:38→19:41)
[2020-11-18] MEDS: TIOTROPIUM INHALER/CAPSULE (SPIRIVA) INH SCH (07:38)
[2020-11-18] MEDS: MAGIC MOUTHWASH SUSPENSION BTL SSP SCH ×4 (09:33→21:12)
[2020-11-18] MEDS: DOCUSATE SODIUM 100MG CAPSULE PO SCH ×2 (09:33→21:12)
[2020-11-18] MEDS: PANTOPRAZOLE 40MG TAB (PROTONIX) PO SCH ×2 (09:33→21:12)
[2020-11-18] MEDS: APIXABAN 5 MG TAB (ELIQUIS) PO SCH ×2 (09:33→21:12)
[2020-11-18] MEDS: METOPROLOL TART 12.5 MG PER 1/2 TAB PO SCH ×2 (09:34→21:14)
[2020-11-18] MEDS: FENOFIBRATE 145 MG TAB (TRICOR) PO SCH (09:34)
[2020-11-18] MEDS: LACTOBACILLUS ACIDOPHILUS CAP (BACID) PO SCH ×3 (09:34→21:12)
[2020-11-18] MEDS: DIGOXIN 0.125 MG TAB PO SCH (09:34)
[2020-11-18] MEDS: DULoxetine 30 MG CAP (CYMBALTA) PO SCH (09:34)
[2020-11-18] MEDS: predniSONE 10 MG TAB PO SCH (09:34)
[2020-11-18] MEDS: REMEDY PHYTOPLEX Z-GUARD PASTE 113GM TUBE (FROM STOREROOM PRODUCT) TOP SCH ×3 (09:35→21:12)
[2020-11-18 14:00] VITALS: BP 138/63
[2020-11-18 20:15] VITALS: BP 142/62
[2020-11-18] MEDS: SENNA 8.6 MG TAB (SENOKOT) PO SCH (21:11)
[2020-11-19 05:29] VITALS: BP 127/62
[2020-11-19] MEDS: SODIUM CHLORIDE 0.9% INJ 10 ML SYR IV SCH ×3 (07:07→20:19)
[2020-11-19] MEDS: ADVAIR HFA 230/21MCG INHALER INH SCH ×2 (07:36→20:26)
[2020-11-19] MEDS: COMBIVENT RESPIMAT 100-20MCG INHALER 4GM INH SCH ×3 (07:36→20:26)
[2020-11-19] MEDS: TIOTROPIUM INHALER/CAPSULE (SPIRIVA) INH SCH (07:36)
[2020-11-19] MEDS: REMEDY PHYTOPLEX Z-GUARD PASTE 113GM TUBE (FROM STOREROOM PRODUCT) TOP SCH ×3 (09:00→20:18)
[2020-11-19] MEDS: DULoxetine 30 MG CAP (CYMBALTA) PO SCH (09:48)
[2020-11-19] MEDS: APIXABAN 5 MG TAB (ELIQUIS) PO SCH ×2 (09:48→20:18)
[2020-11-19] MEDS: DIGOXIN 0.125 MG TAB PO SCH (09:48)
[2020-11-19] MEDS: FENOFIBRATE 145 MG TAB (TRICOR) PO SCH (09:48)
[2020-11-19] MEDS: PANTOPRAZOLE 40MG TAB (PROTONIX) PO SCH ×2 (09:48→20:18)
[2020-11-19] MEDS: DOCUSATE SODIUM 100MG CAPSULE PO SCH ×2 (09:48→20:18)
[2020-11-19] MEDS: METOPROLOL TART 12.5 MG PER 1/2 TAB PO SCH ×2 (09:49→20:18)
[2020-11-19] MEDS: MAGIC MOUTHWASH SUSPENSION BTL SSP SCH ×4 (09:49→20:18)
[2020-11-19] MEDS: predniSONE 10 MG TAB PO SCH (09:49)
[2020-11-19] MEDS: LACTOBACILLUS ACIDOPHILUS CAP (BACID) PO SCH ×3 (09:49→20:17)
[2020-11-19 14:00] VITALS: BP 126/61
[2020-11-19] MEDS: SENNA 8.6 MG TAB (SENOKOT) PO SCH (20:18)
[2020-11-19 20:27] VITALS: O2SAT 99
[2020-11-19 21:00] VITALS: BP 115/73
[2020-11-20] MEDS: SODIUM CHLORIDE 0.9% INJ 10 ML SYR IV SCH ×3 (05:49→20:54)
[2020-11-20 06:00] VITALS: BP 128/67
[2020-11-20 06:17] LABS: BASO % 0.2 % (0.0-1.0); EOS # 0.1 10^3/uL (0.0-0.5); EOS % 0.9 % (0.0-3.0); HEMOGLOBIN 10.5 g/dl (13.5-17.5); LYMPH # 1.5 10^3/uL (1.5-5.0); LYMPH % 13.8 % (24.0-44.0); MEAN CORPUSCULAR HGB CONC 31.8 g/dl (32.0-36.5); MEAN CORPUSCULAR VOLUME 91.2 fl (80.0-96.0); MONO # 0.6 10^3/uL (0.0-0.8); MONO % 5.3 % (2.0-8.0); NEUTROPHILS # 8.3 10^3/uL (1.5-8.5); NEUTROPHILS % 78.2 % (36.0-66.0); PLATELET COUNT, AUTOMATED 165 10^3/uL (150-450); RED BLOOD COUNT 3.62 10^6/uL (4.30-6.10); WHITE BLOOD COUNT 10.7 10^3/uL (4.0-10.0)
[2020-11-20 06:44] LABS: BLOOD UREA NITROGEN 28 MG/DL (7-18); CALCIUM LEVEL 8.9 MG/DL (8.8-10.2); CARBON DIOXIDE LEVEL 30 MEQ/L (21-32); CHLORIDE LEVEL 101 MEQ/L (98-107); CREATININE FOR GFR 0.94 MG/DL (0.70-1.30); GLOMERULAR FILTRATION RATE > 60.0 (>35); GLUCOSE, FASTING 106 MG/DL (70-100); POTASSIUM SERUM 4.1 MEQ/L (3.5-5.1); SODIUM LEVEL 137 MEQ/L (136-145)
[2020-11-20] MEDS: ADVAIR HFA 230/21MCG INHALER INH SCH ×2 (07:39→20:04)
[2020-11-20] MEDS: COMBIVENT RESPIMAT 100-20MCG INHALER 4GM INH SCH ×3 (07:39→20:03)
[2020-11-20] MEDS: TIOTROPIUM INHALER/CAPSULE (SPIRIVA) INH SCH (07:39)
[2020-11-20 10:00] VITALS: BP 132/60
[2020-11-20] MEDS: DOCUSATE SODIUM 100MG CAPSULE PO SCH ×2 (10:23→20:53)
[2020-11-20] MEDS: FENOFIBRATE 145 MG TAB (TRICOR) PO SCH (10:23)
[2020-11-20] MEDS: PANTOPRAZOLE 40MG TAB (PROTONIX) PO SCH ×2 (10:23→20:53)
[2020-11-20] MEDS: predniSONE 10 MG TAB PO SCH (10:23)
[2020-11-20] MEDS: LACTOBACILLUS ACIDOPHILUS CAP (BACID) PO SCH ×3 (10:23→20:53)
[2020-11-20] MEDS: REMEDY PHYTOPLEX Z-GUARD PASTE 113GM TUBE (FROM STOREROOM PRODUCT) TOP SCH ×3 (10:23→20:54)
[2020-11-20] MEDS: MAGIC MOUTHWASH SUSPENSION BTL SSP SCH ×4 (10:24→20:54)
[2020-11-20] MEDS: APIXABAN 5 MG TAB (ELIQUIS) PO SCH ×2 (10:24→20:53)
[2020-11-20] MEDS: DULoxetine 30 MG CAP (CYMBALTA) PO SCH (10:24)
[2020-11-20] MEDS: METOPROLOL TART 12.5 MG PER 1/2 TAB PO SCH ×2 (10:30→20:53)
[2020-11-20] MEDS: DIGOXIN 0.125 MG TAB PO SCH (10:30)
[2020-11-20 14:00] VITALS: BP 140/63
[2020-11-20 20:00] VITALS: BP 121/70
[2020-11-20 20:04] VITALS: O2SAT 98
[2020-11-20] MEDS: SENNA 8.6 MG TAB (SENOKOT) PO SCH (20:52)
[2020-11-21] MEDS: SODIUM CHLORIDE 0.9% INJ 10 ML SYR IV SCH ×2 (05:30→14:00)
[2020-11-21 05:42] VITALS: BP 137/72
[2020-11-21] MEDS: COMBIVENT RESPIMAT 100-20MCG INHALER 4GM INH SCH ×2 (08:00→14:00)
[2020-11-21] MEDS: TIOTROPIUM INHALER/CAPSULE (SPIRIVA) INH SCH (08:06)
[2020-11-21] MEDS: ADVAIR HFA 230/21MCG INHALER INH SCH (08:07)
[2020-11-21] MEDS ORDERED: predniSONE 10 MG TAB PO SCH (08:15)
[2020-11-21] MEDS ORDERED: COMBAER6 INH (08:16)
[2020-11-21] MEDS ORDERED: ADVA230A INH (08:16)
[2020-11-21] MEDS ORDERED: TIOT18INH INH (08:16)
[2020-11-21] MEDS ORDERED: METO1TAB87 PO (08:16)
[2020-11-21] MEDS ORDERED: DIGO0.123 PO (08:16)
[2020-11-21] MEDS ORDERED: PRED5TA PO (08:16)
[2020-11-21] MEDS ORDERED: PANT40TA29 PO (08:16)
[2020-11-21] MEDS ORDERED: RISATAB3 PO (08:16)
[2020-11-21] MEDS ORDERED: DULO1CAP6 PO (08:16)
[2020-11-21] MEDS ORDERED: FENO145T7 PO (08:16)
[2020-11-21] MEDS ORDERED: ELIQ5TAB PO (08:16)
[2020-11-21 09:50] VITALS: BP 121/56
[2020-11-21] MEDS: LACTOBACILLUS ACIDOPHILUS CAP (BACID) PO SCH (09:55)
[2020-11-21] MEDS: PANTOPRAZOLE 40MG TAB (PROTONIX) PO SCH (09:55)
[2020-11-21] MEDS: APIXABAN 5 MG TAB (ELIQUIS) PO SCH (09:55)
[2020-11-21] MEDS: DOCUSATE SODIUM 100MG CAPSULE PO SCH (09:55)
[2020-11-21] MEDS: FENOFIBRATE 145 MG TAB (TRICOR) PO SCH (09:56)
[2020-11-21] MEDS: REMEDY PHYTOPLEX Z-GUARD PASTE 113GM TUBE (FROM STOREROOM PRODUCT) TOP SCH (09:56)
[2020-11-21] MEDS: MAGIC MOUTHWASH SUSPENSION BTL SSP SCH ×2 (09:56→14:10)
[2020-11-21] MEDS: DULoxetine 30 MG CAP (CYMBALTA) PO SCH (09:56)
[2020-11-21 09:59] VITALS: BP 121/56
[2020-11-21] MEDS: DIGOXIN 0.125 MG TAB PO SCH (09:59)
[2020-11-21] MEDS: METOPROLOL TART 12.5 MG PER 1/2 TAB PO SCH (09:59)
--- NOTE | 2020-11-21 11:51 | IPNPDOC ---
PM&R Progress Note DATE OF SERVICE: November 20, 2020 Finance Analyst Progress Note Subjective: Patient seen in room with during family training, stating he feels good and ready to go home tomorrow. REVIEW OF SYSTEMS: The following is a completed review of systems and has been reviewed. Review of systems otherwise unremarkable. PAIN: Patient self reports no pain EYES: No recent vision changes EARS, NOSE, & THROAT: + dysphagia CARDIOVASCULAR: Denies chest pain or palpitations PULMONARY: +shortness of breath on exertion (improved) GASTROINTESTINAL: Denies constipation/diarrhea GENITOURINARY: denies dysuria MUSCULOSKELETAL: generalized weakness NEUROLOGICAL: no tremor or paresthesias HEMATOLOGICAL: denies easy bruising SKIN: sacral ulcers PSYCHIATRIC: Unremarkable All other review of systems found to be negative. PHYSICAL EXAMINATION: VITAL SIGNS: Please see below. GENERAL: Pleasant and cooperative. No acute distress. HEENT: PERRL. Extraocular movements intact. Clear conjunctiva, moist oral mucosa CARDIOVASCULAR: Regular rate and rhythm. No murmurs, rubs, or gallops LUNGS: Clear to auscultation bilaterally. No wheezes. No rhonchi ABDOMEN: Soft, nontender, nondistended. Positive bowel sounds. Normal active bowel sounds NEUROLOGICAL: Alert and oriented times three. Cranial nerves II through XII grossly intact. Sensation grossly intact. EXTREMITIES: 4\5 strength bilateral upper extremities. 4\5 strength right lower extremity. 4/5 strength in left lower extremity. SKIN: +sacral ulcers, scattered LE excoriations ASSESSMENT:85-year-old M with past medical history of COPD, CAD who presents status post sepsis in setting of PNA and CHF exacerbation PLAN: 1. Rehab- PT/OT advance mobility and ADLs-stretch/strengthen/maintain ROM all 4l limbs- ambulating with RW [employer] for dysphagia 2/ Neuro- MRI negative for infarct 2. Cardiac- Afib c/u eliquis, digoxin, metoprolol -CHF- daily weights, on honey thickened liquids, will avoid fluid restriction, free water protocol -HLD- c/u tricor 3. resp- hx of COPD on 02 with recent COPD exacerbation and PNA- s/p course of doxycycline, inhalers, and steroids- breathing overall improved -Leukocytosis- on oral steroids, repeat CT chest showing overall improvements, no concern for new infection -HOB 30 degrees aspiration precautions 4. Endo- hx of DM with hypoglycemia, insulin held, c/u FS and hypoglycemic protocol 5. DVT ppx on eliquis 6. GI ppx -protonix BID 7. Psych- cymbalta 8. Dispo- 11-21-20 to home, progressing towards goals DME- patient will need a hospital bed due to his history of CHF and for his risk of aspirating in the setting of dysphagia. He will need the head of the bed elevated to prevent orthopnea and his legs to be elevated to reduce lower extremity edema. A hospital bed will make it easier for his caregiver to take care of him and help reduce the risk of him developing a pneumonia or hypoxic respiratory failure insetting of CHF. Allergies Coded Allergies: No Known Allergies (Verified , 03/06/04) Vital Signs Vital Signs Date Time Temp Pulse Resp B/P (MAP) Pulse Ox O2 Delivery O2 Flow Rate FiO2 11/21/20 09:59 88 121/56 11/21/20 05:42 97.2 17 99 Nasal Cannula 3.0 11/20/20 20:04 28 Laboratory Data Labs 24H Laboratory Tests 2 11/20/20 16:28: Bedside Glucose (Misc Panel) 225H 11/20/20 19:50: Bedside Glucose (Misc Panel) 187H 11/21/20 05:17: Bedside Glucose (Misc Panel) 131H Microbiology Microbiology 11/15/20 Respiratory Virus Panel (PCR) (TEO) - Final, Complete Current Medications Current Medications Current Medications Medications (Trade) Dose Ordered Sig/Mata Route PRN Reason Start Time Stop Time Status Last Admin Dose Admin Acetaminophen (Tylenol Tab) 650 mg Q4HP PRN PO fever/MILD PAIN (PS 1-4) 11/08/20 17:10 11/13/20 17:12 Albuterol/ Ipratropium (Combivent Respimat 100-20mcg) 1 puff RTID INH 11/16/20 08:00 11/20/20 20:03 Albuterol/ Ipratropium (Duoneb (Ipr 0.5mg/Alb 2.5mg)) 3 ml RQID NEB 11/08/20 20:00 11/16/20 08:03 DC 11/15/20 20:26 Amlodipine Besylate (Norvasc) 2.5 mg DAILY PO 11/09/20 09:00 11/09/20 16:34 DC Apixaban (Eliquis) 5 mg BID PO 11/08/20 21:00 11/21/20 09:55 Bisacodyl (Dulcolax Suppository) 10 mg DAILYPRN PRN PA CONSTIPATION 11/08/20 17:10 Dextrose (Dextrose 50%) 25 ml ASDIRECTED PRN IV SEE LABEL COMMENTS 11/08/20 17:15 Digoxin (Lanoxin) 0.125 mg DAILY PO 11/09/20 09:00 11/21/20 09:59 Docusate Sodium (Colace) 100 mg BID PO 11/08/20 21:00 11/21/20 09:55 Doxycycline Hyclate (Vibramycin) 100 mg BID PO 11/08/20 21:00 11/13/20 07:47 DC 11/12/20 21:27 Duloxetine HCl (Cymbalta) 60 mg DAILY PO 11/09/20 09:00 11/21/20 09:56 Fenofibrate (Tricor) 145 mg DAILY PO 11/09/20 09:00 11/21/20 09:56 Glucagon (Glucagon) 1 mg ASDIRECTED PRN SC SEE LABEL COMMENTS 11/08/20 17:15 Glucose (Glucose) 16 GM ASDIRECTED PRN PO SEE LABEL COMMENTS 11/08/20 17:15 Heparin Sodium (Heparin Lock Flush 10units/ml) 10 units ASDIRECTED PRN IV SEE LABEL COMMENTS 11/09/20 01:50 11/10/20 22:26 Heparin Sodium (Heparin Lock Flush 10units/ml) 10 units HLF IV 11/09/20 06:00 11/21/20 05:29 Insulin Detemir (Levemir Insulin) 20 units QHS SC 11/09/20 21:00 11/09/20 08:44 DC Insulin Detemir (Levemir Insulin) 30 units QHS SC 11/08/20 21:00 11/09/20 08:03 DC 11/08/20 20:47 Insulin Human Lispro (HumaLOG INSULIN) SEE PROTOCOL TABLE AC SC 11/08/20 17:30 11/09/20 13:38 DC 11/08/20 17:52 Insulin Human Lispro (HumaLOG INSULIN) SEE PROTOCOL TABLE QHS SC 11/08/20 21:00 11/09/20 13:38 DC Lactobacillus Acidophilus (Bacid) 1 ea TID PO 11/08/20 21:00 11/21/20 09:55 Lidocaine/ Diphenhydr/Alum/ Mg/Simeth (Magic Mouthwash) 5ML ACHS SSP 11/08/20 17:30 11/21/20 09:56 Metoprolol Tartrate (Lopressor) 12.5 mg BID PO 11/09/20 21:00 11/21/20 09:59 Metoprolol Tartrate (Lopressor) 25 mg BID PO 11/08/20 21:00 11/09/20 16:34 DC 11/08/20 20:46 Pantoprazole Sodium (Protonix) 40 mg BID PO 11/08/20 21:00 11/21/20 09:55 Pantoprazole Sodium (Protonix) 40 mg DAILY PO 11/09/20 09:00 11/08/20 17:21 DC Prednisone (Deltasone) 20 mg DAILY PO 11/21/20 08:15 11/21/20 09:56 Prednisone (Deltasone) 30 mg DAILY PO 11/14/20 09:00 11/21/20 08:17 DC 11/20/20 10:23 Prednisone (Deltasone) 40 mg DAILY PO 11/09/20 09:00 11/13/20 10:00 DC 11/13/20 08:53 Salmeterol Xinafoate/ Fluticasone (Advair Hfa ) 2 puff RBID INH 11/08/20 20:00 11/21/20 08:07 Senna (Senokot) 1 tab QHS PO 11/08/20 21:00 11/20/20 20:52 Sodium Chloride (Saline Lock Flush) 10 ml ASDIRECTED PRN IV SEE LABEL COMMENTS 11/09/20 01:50 11/10/20 22:26 Sodium Chloride (Saline Lock Flush) 10 ml SLF IV 11/09/20 06:00 11/21/20 05:30 Tiotropium [place] (Spiriva Handihaler) 1 inhalation DAILY@08 INH 11/09/20 08:00 11/21/20 08:06 IGNACIA WILHELM MD November 21, 2020 11:51
[2020-11-21] MEDS ORDERED: NEOSPORIN TOP OINT 15GM TOP STA (13:29)
[2020-11-21] MEDS ORDERED: NEOSPORIN OINT 0.9 GM PKT TOP STA (13:36)
== END 2020-11-21 14:45 | disposition home health service (06) | DRG 948 ==
LOC: M PM&R 15:50
PROVIDERS: ADMIT Physical Medicine & Rehabilitation; ATTEND Physical Medicine & Rehabilitation
DX: R53.1 Weakness (principal); I48.19 Other persistent atrial fibrillation; I13.0 Hypertensive heart and chronic kidney disease with heart failure and stage 1 through stage 4 chronic kidney disease, or unspecified chronic kidney disease; E11.22 Type 2 diabetes mellitus with diabetic chronic kidney disease; N18.30 Chronic kidney disease, stage 3 unspecified; E78.5 Hyperlipidemia, unspecified; I25.10 Atherosclerotic heart disease of native coronary artery without angina pectoris; K21.9 Gastro-esophageal reflux disease without esophagitis; K57.90 Diverticulosis of intestine, part unspecified, without perforation or abscess without bleeding; K64.9 Unspecified hemorrhoids; R06.02 Shortness of breath; R13.12 Dysphagia, oropharyngeal phase; Z66 Do not resuscitate; L98.419 Non-pressure chronic ulcer of buttock with unspecified severity; I50.9 Heart failure, unspecified; J44.9 Chronic obstructive pulmonary disease, unspecified; N47.1 Phimosis; E11.649 Type 2 diabetes mellitus with hypoglycemia without coma; Z74.1 Need for assistance with personal care; Z99.81 Dependence on supplemental oxygen; Z74.09 Other reduced mobility; Z79.01 Long term (current) use of anticoagulants; Z79.4 Long term (current) use of insulin; Z79.899 Other long term (current) drug therapy; Z90.49 Acquired absence of other specified parts of digestive tract; Z87.81 Personal history of (healed) traumatic fracture

== ENCOUNTER 2021-08-06 21:21 | Inpatient (IN) | payer MEDICARE, OTHER ==
[~2021-08-06] VITALS: Ht 177.8 cm; Wt 79.5 kg
[~2021-08-06 21:21] MED LIST changes: +ADVA230A INH; +CEFD300CAP PO; -CLIN150C15 PO; +CLIN150C17 PO; +COMBAER6 INH; +DILT120C89 PO; +DILT1TAB7 PO; +ERGO500029 PO; +OMEP-173 PO; +PANT40TA29 PO; +PRED5TA PO; +RISATAB3 PO; +TAMS1CAP17 PO; +TIOT18INH INH; +med rec comment
[2021-08-06] MEDS ORDERED: ONDANSETRON 4MG/2ML VIAL IV ONE (21:40)
[2021-08-06] MEDS ORDERED: FAMOTIDINE INJ 20MG/2ML VIAL (S0028 PER 1) IVP ONE (21:40)
[2021-08-06] MEDS ORDERED: LIDOCAINE 2% 5ML JELLY UROJET TOP ONE (21:40)
[2021-08-06] MEDS ORDERED: NS 1,000 ML IV SCH (21:40)
[2021-08-06 23:37] LABS: BASO % 0.3 % (0.0-1.0); EOS % 0.1 % (0.0-3.0); HEMATOCRIT 45.1 % (42.0-52.0); HEMOGLOBIN 14.4 g/dl (13.5-17.5); LYMPH # 0.5 10^3/uL (1.5-5.0); LYMPH % 3.8 % (24.0-44.0); MEAN CORPUSCULAR HEMOGLOBIN 27.9 pg (27.0-33.0); MEAN CORPUSCULAR HGB CONC 31.9 g/dl (32.0-36.5); MEAN CORPUSCULAR VOLUME 87.2 fl (80.0-96.0); MONO # 0.3 10^3/uL (0.0-0.8); MONO % 2.3 % (2.0-8.0); NEUTROPHILS # 11.6 10^3/uL (1.5-8.5); NEUTROPHILS % 92.1 % (36.0-66.0); PLATELET COUNT, AUTOMATED 132 10^3/uL (150-450); RED BLOOD COUNT 5.17 10^6/uL (4.30-6.10); WHITE BLOOD COUNT 12.6 10^3/uL (4.0-10.0)
[2021-08-06] MEDS ORDERED: cefTRIAXone SOD 1 GM in D5W MINI-BAG PLUS 50 ML IV ONE (23:40)
[2021-08-07 00:06] LABS: ALBUMIN 3.4 GM/DL (3.2-5.2); BILIRUBIN,DIRECT 0.2 MG/DL (0.0-0.2); BILIRUBIN,TOTAL 0.4 MG/DL (0.2-1.0)
[2021-08-07] MEDS ORDERED: AZITHROMYCIN 250MG TABLET PO ONE (01:55)
[2021-08-07] MEDS ORDERED: ALBUTEROL 90 MCG/ACT 8GM HFA INHALER INH PRN (02:35)
[2021-08-07] MEDS ORDERED: ALBUTEROL SULFATE 2.5 MG/0.5 ML INH NEB SOLN INH PRN (02:35)
[2021-08-07] MEDS ORDERED: GLUCOSE 4GM CHEW TABLET PO PRN (03:35)
[2021-08-07] MEDS ORDERED: DEXTROSE 50% 50 ML SYRINGE IV PRN (03:35)
[2021-08-07] MEDS ORDERED: GLUCAGON INJ 1MG VIAL SC PRN (03:35)
[2021-08-07 04:04] LABS: INR 1.05; PROTHROMBIN TIME 14.1 SECONDS (12.7-14.5)
[2021-08-07 04:05] LABS: PARTIAL THROMBOPLASTIN TIME 29.6 SECONDS (25.9-37.0)
[2021-08-07 04:30] VITALS: BP 139/85
[2021-08-07] MEDS: DOXYCYCLINE HYCLATE 100 MG in D5W MINI-BAG PLUS 100 ML IV SCH ×2 (05:06→17:48)
[2021-08-07] MEDS ORDERED: PRED10TA2 PO (05:54)
[2021-08-07] MEDS ORDERED: DILT1TAB7 PO (05:54)
[2021-08-07] MEDS ORDERED: ELIQ5TAB PO (05:54)
[2021-08-07] MEDS ORDERED: HOME MED LIST COMPLETE! XX SCH (05:55)
[2021-08-07] MEDS ORDERED: SPIR1CAP INH (05:55)
[2021-08-07] MEDS ORDERED: INSUDET SC (05:55)
[2021-08-07] MEDS: TIOTROPIUM INHALER/CAPSULE (SPIRIVA) INH SCH (07:14)
[2021-08-07] MEDS: IPRATROPIUM 0.5MG/ALBUTEROL 2.5MG INH SOL UD 3ML (DUONEB) INH SCH ×4 (07:14→20:07)
[2021-08-07] MEDS: APIXABAN 5 MG TAB (ELIQUIS) PO SCH ×2 (09:38→21:06)
[2021-08-07] MEDS: HumaLOG INSULIN (NovoLOG) PER UNIT SC SCH ×4 (09:38→19:40)
[2021-08-07] MEDS ORDERED: ONDANSETRON 4 MG TAB PO ONE (10:30)
[2021-08-07] MEDS: diltiaZEM **CD** 180 MG CAP PO SCH (10:43)
[2021-08-07 11:04] LABS: HEPATITIS B CORE ANTIBODY IGM NEGATIVE (NEGATIVE); HEPATITIS B SURFACE ANTIGEN NEGATIVE (NEGATIVE); HEPATITIS C VIRUS ABY INDEX < 0.0 INDEX (<0.8)
[2021-08-07 11:22] LABS: CK-MB VALUE MASS 1.3 NG/ML (<3.6); MB/CK RELATIVE INDEX 6.5 (< OR =4)
[2021-08-07 12:01] LABS: ALBUMIN 2.8 GM/DL (3.2-5.2); ALT/SGPT 86 U/L (12-78); BILIRUBIN,TOTAL 0.3 MG/DL (0.2-1.0); BLOOD UREA NITROGEN 33 MG/DL (7-18); CALCIUM LEVEL 8.5 MG/DL (8.8-10.2); CARBON DIOXIDE LEVEL 22 MEQ/L (21-32); CHLORIDE LEVEL 106 MEQ/L (98-107); GLOMERULAR FILTRATION RATE > 60.0 (>35); GLUCOSE, FASTING 184 MG/DL (70-100); MAGNESIUM LEVEL 1.5 MG/DL (1.8-2.4); PHOSPHORUS LEVEL 2.7 MG/DL (2.5-4.9); SODIUM LEVEL 137 MEQ/L (136-145); TOTAL PROTEIN 5.9 GM/DL (6.4-8.2)
[2021-08-07] MEDS ORDERED: VARIBAR NECTAR 40% w/v 240ML SUSP BTL As Ordered ONE (13:31)
[2021-08-07] MEDS ORDERED: VARIBAR PUDDING 40% w/v 230ML TUBE As Ordered ONE (13:31)
[2021-08-07] MEDS ORDERED: E-Z-PAQUE 96% w/w SUSP 176GM BTL As Ordered ONE (13:32)
[2021-08-07] MEDS ORDERED: BARIUM SULFATE 700 MG TABLET (E-Z-DISK) As Ordered ONE (13:32)
[2021-08-07] MEDS ORDERED: NS 500 ML IV ONE (13:35)
[2021-08-07 14:00] VITALS: BP 138/63
[2021-08-07] MEDS ORDERED: THIAMINE INJection 500 MG in NS 100 ML IV SCH (16:00)
[2021-08-07 22:00] VITALS: BP 141/62
[2021-08-07] MEDS: cefTRIAXone SOD 1 GM in D5W MINI-BAG PLUS 50 ML IV SCH (23:15)
[2021-08-08] MEDS: IPRATROPIUM 0.5MG/ALBUTEROL 2.5MG INH SOL UD 3ML (DUONEB) INH SCH ×7 (00:23→23:26)
[2021-08-08 02:00] VITALS: BP 126/58
[2021-08-08] MEDS: DOXYCYCLINE HYCLATE 100 MG in D5W MINI-BAG PLUS 100 ML IV SCH ×2 (05:56→17:43)
[2021-08-08 06:00] VITALS: BP 124/58
[2021-08-08] MEDS: TIOTROPIUM INHALER/CAPSULE (SPIRIVA) INH SCH (07:29)
[2021-08-08 07:50] LABS: BASO # 0.1 10^3/uL (0.0-0.2); BASO % 0.8 % (0.0-1.0); EOS # 0.2 10^3/uL (0.0-0.5); HEMATOCRIT 37.3 % (42.0-52.0); LYMPH # 1.4 10^3/uL (1.5-5.0); LYMPH % 15.1 % (24.0-44.0); MEAN CORPUSCULAR HEMOGLOBIN 27.6 pg (27.0-33.0); MEAN CORPUSCULAR HGB CONC 31.9 g/dl (32.0-36.5); MEAN CORPUSCULAR VOLUME 86.5 fl (80.0-96.0); MONO # 0.7 10^3/uL (0.0-0.8); MONO % 7.2 % (2.0-8.0); NEUTROPHILS # 6.5 10^3/uL (1.5-8.5); NEUTROPHILS % 70.9 % (36.0-66.0); PLATELET COUNT, AUTOMATED 126 10^3/uL (150-450); RED BLOOD COUNT 4.31 10^6/uL (4.30-6.10); WHITE BLOOD COUNT 9.2 10^3/uL (4.0-10.0)
[2021-08-08 08:02] LABS: HEMOGLOBIN 11.9 g/dl (13.5-17.5)
[2021-08-08 08:23] LABS: ALBUMIN 2.5 GM/DL (3.2-5.2); ALT/SGPT 61 U/L (12-78); BILIRUBIN,TOTAL 0.2 MG/DL (0.2-1.0); BLOOD UREA NITROGEN 28 MG/DL (7-18); CALCIUM LEVEL 8.6 MG/DL (8.8-10.2); CARBON DIOXIDE LEVEL 29 MEQ/L (21-32); CHLORIDE LEVEL 106 MEQ/L (98-107); CREATININE FOR GFR 1.11 MG/DL (0.70-1.30); GLOMERULAR FILTRATION RATE > 60.0 (>35); GLUCOSE, FASTING 131 MG/DL (70-100); MAGNESIUM LEVEL 1.6 MG/DL (1.8-2.4); PHOSPHORUS LEVEL 3.7 MG/DL (2.5-4.9); POTASSIUM SERUM 4.2 MEQ/L (3.5-5.1); SODIUM LEVEL 138 MEQ/L (136-145); TOTAL PROTEIN 5.4 GM/DL (6.4-8.2)
[2021-08-08] MEDS: HumaLOG INSULIN (NovoLOG) PER UNIT SC SCH ×4 (08:56→19:57)
[2021-08-08] MEDS: diltiaZEM **CD** 180 MG CAP PO SCH (08:57)
[2021-08-08] MEDS: APIXABAN 5 MG TAB (ELIQUIS) PO SCH ×2 (08:57→20:00)
[2021-08-08 10:00] VITALS: BP 128/61
[2021-08-08 14:00] VITALS: BP 140/89
[2021-08-08 15:12] LABS: MYCOPLASMA PNEUMONIAE IgG 502 U/mL (0-99); MYCOPLASMA PNEUMONIAE IgM <770 U/mL (0-769)
[2021-08-08 18:00] VITALS: BP 134/62
[2021-08-08 20:00] VITALS: BP 130/60
[2021-08-08] MEDS ORDERED: MAGNESIUM OXIDE 400MG TAB (MAG-OX) PO ONE (20:50)
[2021-08-08] MEDS: TAMSULOSIN 0.4 MG CAP PO SCH (21:56)
[2021-08-08] MEDS: cefTRIAXone SOD 1 GM in D5W MINI-BAG PLUS 50 ML IV SCH (22:01)
[2021-08-09 01:55] VITALS: BP 134/64
[2021-08-09] MEDS: IPRATROPIUM 0.5MG/ALBUTEROL 2.5MG INH SOL UD 3ML (DUONEB) INH SCH ×5 (02:55→20:00)
[2021-08-09] MEDS: DOXYCYCLINE HYCLATE 100 MG in D5W MINI-BAG PLUS 100 ML IV SCH (05:20)
[2021-08-09 05:31] VITALS: BP 123/55
[2021-08-09 06:37] LABS: BASO # 0.1 10^3/uL (0.0-0.2); EOS # 0.3 10^3/uL (0.0-0.5); EOS % 3.2 % (0.0-3.0); HEMATOCRIT 36.1 % (42.0-52.0); HEMOGLOBIN 11.5 g/dl (13.5-17.5); LYMPH # 1.2 10^3/uL (1.5-5.0); LYMPH % 13.3 % (24.0-44.0); MEAN CORPUSCULAR HEMOGLOBIN 27.6 pg (27.0-33.0); MEAN CORPUSCULAR HGB CONC 31.9 g/dl (32.0-36.5); MEAN CORPUSCULAR VOLUME 86.8 fl (80.0-96.0); MONO # 0.5 10^3/uL (0.0-0.8); MONO % 6.2 % (2.0-8.0); NEUTROPHILS # 6.3 10^3/uL (1.5-8.5); PLATELET COUNT, AUTOMATED 117 10^3/uL (150-450); RED BLOOD COUNT 4.16 10^6/uL (4.30-6.10); WHITE BLOOD COUNT 8.8 10^3/uL (4.0-10.0)
[2021-08-09 07:14] LABS: ALBUMIN 2.6 GM/DL (3.2-5.2); ALT/SGPT 49 U/L (12-78); BILIRUBIN,TOTAL 0.3 MG/DL (0.2-1.0); BLOOD UREA NITROGEN 31 MG/DL (7-18); CALCIUM LEVEL 9.1 MG/DL (8.8-10.2); CARBON DIOXIDE LEVEL 27 MEQ/L (21-32); CHLORIDE LEVEL 106 MEQ/L (98-107); CREATININE FOR GFR 1.18 MG/DL (0.70-1.30); GLOMERULAR FILTRATION RATE > 60.0 (>35); GLUCOSE, FASTING 135 MG/DL (70-100); POTASSIUM SERUM 4.8 MEQ/L (3.5-5.1); SODIUM LEVEL 137 MEQ/L (136-145); TOTAL PROTEIN 5.9 GM/DL (6.4-8.2)
[2021-08-09] MEDS: HumaLOG INSULIN (NovoLOG) PER UNIT SC SCH ×4 (07:30→19:57)
[2021-08-09] MEDS: TIOTROPIUM INHALER/CAPSULE (SPIRIVA) INH SCH (07:52)
[2021-08-09] MEDS: APIXABAN 5 MG TAB (ELIQUIS) PO SCH ×2 (09:01→20:34)
[2021-08-09] MEDS: diltiaZEM **CD** 180 MG CAP PO SCH (09:01)
[2021-08-09 10:00] VITALS: BP 149/66
[2021-08-09] MEDS: LevoFLOXacin 750 MG TABLET PO SCH (13:41)
[2021-08-09] MEDS: TAMSULOSIN 0.4 MG CAP PO SCH (20:34)
[2021-08-09] MEDS ORDERED: DOXYCYCLINE HYCLATE 100MG TABLET PO SCH (21:00)
[2021-08-09] MEDS ORDERED: CEFUROXIME 500 MG TAB PO SCH (21:00)
[2021-08-10 06:00] VITALS: BP 132/66
[2021-08-10] MEDS: IPRATROPIUM 0.5MG/ALBUTEROL 2.5MG INH SOL UD 3ML (DUONEB) INH SCH ×7 (06:05→23:48)
[2021-08-10 06:12] LABS: BASO # 0.1 10^3/uL (0.0-0.2); BASO % 0.7 % (0.0-1.0); EOS # 0.4 10^3/uL (0.0-0.5); EOS % 3.9 % (0.0-3.0); HEMATOCRIT 35.5 % (42.0-52.0); HEMOGLOBIN 11.6 g/dl (13.5-17.5); LYMPH % 11.2 % (24.0-44.0); MEAN CORPUSCULAR HEMOGLOBIN 28.2 pg (27.0-33.0); MEAN CORPUSCULAR HGB CONC 32.7 g/dl (32.0-36.5); MEAN CORPUSCULAR VOLUME 86.2 fl (80.0-96.0); MONO # 0.6 10^3/uL (0.0-0.8); MONO % 6.9 % (2.0-8.0); NEUTROPHILS # 6.7 10^3/uL (1.5-8.5); PLATELET COUNT, AUTOMATED 110 10^3/uL (150-450); RED BLOOD COUNT 4.12 10^6/uL (4.30-6.10); WHITE BLOOD COUNT 9.1 10^3/uL (4.0-10.0)
[2021-08-10] MEDS: LevoFLOXacin 750 MG TABLET PO SCH (06:26)
[2021-08-10 06:46] LABS: ALBUMIN 2.6 GM/DL (3.2-5.2); ALT/SGPT 39 U/L (12-78); BILIRUBIN,TOTAL 0.3 MG/DL (0.2-1.0); BLOOD UREA NITROGEN 24 MG/DL (7-18); CARBON DIOXIDE LEVEL 29 MEQ/L (21-32); CHLORIDE LEVEL 106 MEQ/L (98-107); CREATININE FOR GFR 1.12 MG/DL (0.70-1.30); GLOMERULAR FILTRATION RATE > 60.0 (>35); GLUCOSE, FASTING 113 MG/DL (70-100); POTASSIUM SERUM 4.3 MEQ/L (3.5-5.1); SODIUM LEVEL 138 MEQ/L (136-145); TOTAL PROTEIN 5.6 GM/DL (6.4-8.2)
[2021-08-10] MEDS: TIOTROPIUM INHALER/CAPSULE (SPIRIVA) INH SCH (07:45)
[2021-08-10] MEDS: HumaLOG INSULIN (NovoLOG) PER UNIT SC SCH ×4 (08:57→19:54)
[2021-08-10] MEDS: APIXABAN 5 MG TAB (ELIQUIS) PO SCH ×2 (08:58→21:14)
[2021-08-10] MEDS: diltiaZEM **CD** 180 MG CAP PO SCH (08:58)
[2021-08-10 14:00] VITALS: BP 134/56
[2021-08-10 14:08] LABS: CHLAMYDIA PNEUMONIAE IgM <1:10 (Neg:<1:10)
[2021-08-10] MEDS ORDERED: MIRALAX *UNIT DOSE* 17GM PACKET PO PRN (14:35)
[2021-08-10] MEDS ORDERED: MOM 30ML SUSPENSION UDC PO ONE (14:35)
[2021-08-10] MEDS ORDERED: FUROSEMIDE 20MG/2ML VIAL (J1940) IV ONE (14:35)
[2021-08-10] MEDS ORDERED: FUROSEMIDE 40 MG TAB PO ONE (15:00)
[2021-08-10] MEDS: DOCUSATE SODIUM 100MG CAPSULE PO SCH (15:23)
[2021-08-10] MEDS: PANTOPRAZOLE 40MG TAB (PROTONIX) PO SCH (19:09)
[2021-08-10] MEDS ORDERED: MAALOX 30 ML SUSP *UDC PO ONE (19:20)
[2021-08-10] MEDS: SUCRALFATE 1 GM TAB PO SCH (21:14)
[2021-08-10] MEDS: TAMSULOSIN 0.4 MG CAP PO SCH (21:14)
[2021-08-11] MEDS: IPRATROPIUM 0.5MG/ALBUTEROL 2.5MG INH SOL UD 3ML (DUONEB) INH SCH ×6 (03:48→23:29)
[2021-08-11 05:00] VITALS: BP 128/58
[2021-08-11] MEDS: LevoFLOXacin 750 MG TABLET PO SCH (05:37)
[2021-08-11 06:36] LABS: BASO # 0.1 10^3/uL (0.0-0.2); BASO % 0.6 % (0.0-1.0); EOS # 0.2 10^3/uL (0.0-0.5); EOS % 2.7 % (0.0-3.0); HEMOGLOBIN 11.2 g/dl (13.5-17.5); MEAN CORPUSCULAR HEMOGLOBIN 27.7 pg (27.0-33.0); MEAN CORPUSCULAR HGB CONC 31.1 g/dl (32.0-36.5); MEAN CORPUSCULAR VOLUME 89.1 fl (80.0-96.0); MONO # 0.7 10^3/uL (0.0-0.8); MONO % 9.2 % (2.0-8.0); NEUTROPHILS # 5.9 10^3/uL (1.5-8.5); RED BLOOD COUNT 4.04 10^6/uL (4.30-6.10)
[2021-08-11 06:58] LABS: ALBUMIN 2.5 GM/DL (3.2-5.2); ALT/SGPT 31 U/L (12-78); BILIRUBIN,TOTAL 0.4 MG/DL (0.2-1.0); BLOOD UREA NITROGEN 26 MG/DL (7-18); CALCIUM LEVEL 8.9 MG/DL (8.8-10.2); CARBON DIOXIDE LEVEL 28 MEQ/L (21-32); CHLORIDE LEVEL 104 MEQ/L (98-107); CREATININE FOR GFR 1.18 MG/DL (0.70-1.30); GLOMERULAR FILTRATION RATE > 60.0 (>35); GLUCOSE, FASTING 133 MG/DL (70-100); POTASSIUM SERUM 3.9 MEQ/L (3.5-5.1); SODIUM LEVEL 137 MEQ/L (136-145); TOTAL PROTEIN 5.5 GM/DL (6.4-8.2)
[2021-08-11 07:08] LABS: PLATELET COUNT, AUTOMATED 88 10^3/uL (150-450)
[2021-08-11] MEDS: TIOTROPIUM INHALER/CAPSULE (SPIRIVA) INH SCH (07:15)
[2021-08-11] MEDS: SUCRALFATE 1 GM TAB PO SCH ×4 (08:57→21:15)
[2021-08-11] MEDS: APIXABAN 5 MG TAB (ELIQUIS) PO SCH ×2 (08:57→21:15)
[2021-08-11] MEDS: HumaLOG INSULIN (NovoLOG) PER UNIT SC SCH ×4 (09:04→19:57)
[2021-08-11] MEDS: DOCUSATE SODIUM 100MG CAPSULE PO SCH (09:04)
[2021-08-11] MEDS: PANTOPRAZOLE 40MG TAB (PROTONIX) PO SCH (09:04)
[2021-08-11] MEDS: diltiaZEM **CD** 180 MG CAP PO SCH (09:05)
[2021-08-11] MEDS: MAALOX 30 ML SUSP *UDC PO PRN (11:56)
[2021-08-11] MEDS ORDERED: FUROSEMIDE 40 MG TAB PO ONE (14:00)
[2021-08-11] MEDS: TAMSULOSIN 0.4 MG CAP PO SCH (21:15)
[2021-08-12] MEDS: IPRATROPIUM 0.5MG/ALBUTEROL 2.5MG INH SOL UD 3ML (DUONEB) INH SCH ×6 (03:18→23:47)
[2021-08-12] MEDS: LevoFLOXacin 750 MG TABLET PO SCH (05:14)
[2021-08-12 06:00] VITALS: BP 136/62
[2021-08-12] MEDS: TIOTROPIUM INHALER/CAPSULE (SPIRIVA) INH SCH (07:16)
[2021-08-12 08:23] LABS: ALBUMIN 2.6 GM/DL (3.2-5.2); BILIRUBIN,TOTAL 0.5 MG/DL (0.2-1.0); CALCIUM LEVEL 8.6 MG/DL (8.8-10.2); CREATININE FOR GFR 1.23 MG/DL (0.70-1.30); GLOMERULAR FILTRATION RATE 59.7 (>35); POTASSIUM SERUM 4.3 MEQ/L (3.5-5.1); TOTAL PROTEIN 6.1 GM/DL (6.4-8.2)
[2021-08-12] MEDS: PANTOPRAZOLE 40MG TAB (PROTONIX) PO SCH (08:49)
[2021-08-12] MEDS: DOCUSATE SODIUM 100MG CAPSULE PO SCH (08:49)
[2021-08-12] MEDS: diltiaZEM **CD** 180 MG CAP PO SCH (08:49)
[2021-08-12] MEDS: APIXABAN 5 MG TAB (ELIQUIS) PO SCH ×2 (08:49→20:52)
[2021-08-12] MEDS: SUCRALFATE 1 GM TAB PO SCH ×4 (08:49→20:52)
[2021-08-12] MEDS: HumaLOG INSULIN (NovoLOG) PER UNIT SC SCH ×4 (08:50→19:54)
[2021-08-12 10:39] LABS: BASO % 0.4 % (0.0-1.0); EOS # 0.3 10^3/uL (0.0-0.5); EOS % 3.5 % (0.0-3.0); HEMATOCRIT 35.5 % (42.0-52.0); HEMOGLOBIN 11.3 g/dl (13.5-17.5); LYMPH # 0.7 10^3/uL (1.5-5.0); LYMPH % 10.3 % (24.0-44.0); MEAN CORPUSCULAR HEMOGLOBIN 27.3 pg (27.0-33.0); MEAN CORPUSCULAR HGB CONC 31.8 g/dl (32.0-36.5); MEAN CORPUSCULAR VOLUME 85.7 fl (80.0-96.0); MONO # 0.8 10^3/uL (0.0-0.8); NEUTROPHILS # 5.2 10^3/uL (1.5-8.5); PLATELET COUNT, AUTOMATED 106 10^3/uL (150-450); RED BLOOD COUNT 4.14 10^6/uL (4.30-6.10); WHITE BLOOD COUNT 7.1 10^3/uL (4.0-10.0)
[2021-08-12] MEDS: MAALOX 30 ML SUSP *UDC PO PRN (11:22)
[2021-08-12] MEDS: TAMSULOSIN 0.4 MG CAP PO SCH (20:52)
[2021-08-13] MEDS: IPRATROPIUM 0.5MG/ALBUTEROL 2.5MG INH SOL UD 3ML (DUONEB) INH SCH ×5 (03:42→20:44)
[2021-08-13] MEDS: LevoFLOXacin 750 MG TABLET PO SCH (05:23)
[2021-08-13 06:00] VITALS: BP 135/62
[2021-08-13] MEDS: TIOTROPIUM INHALER/CAPSULE (SPIRIVA) INH SCH (07:27)
[2021-08-13] MEDS: APIXABAN 5 MG TAB (ELIQUIS) PO SCH ×2 (09:37→21:29)
[2021-08-13] MEDS: SUCRALFATE 1 GM TAB PO SCH ×4 (09:37→21:29)
[2021-08-13] MEDS: DOCUSATE SODIUM 100MG CAPSULE PO SCH (09:37)
[2021-08-13] MEDS: PANTOPRAZOLE 40MG TAB (PROTONIX) PO SCH (09:37)
[2021-08-13] MEDS: HumaLOG INSULIN (NovoLOG) PER UNIT SC SCH ×4 (09:38→21:00)
[2021-08-13] MEDS: diltiaZEM **CD** 180 MG CAP PO SCH (09:38)
[2021-08-13] MEDS: TAMSULOSIN 0.4 MG CAP PO SCH (21:29)
[2021-08-14] MEDS: NYSTATIN 100,000 UNITS/GM TOPICAL PWD 15 GM TOP PRN ×2 (00:02→22:15)
[2021-08-14] MEDS: IPRATROPIUM 0.5MG/ALBUTEROL 2.5MG INH SOL UD 3ML (DUONEB) INH SCH ×3 (00:12→07:51)
[2021-08-14 06:01] VITALS: BP 133/70
[2021-08-14] MEDS: TIOTROPIUM INHALER/CAPSULE (SPIRIVA) INH SCH (07:51)
[2021-08-14] MEDS: HumaLOG INSULIN (NovoLOG) PER UNIT SC SCH ×4 (08:41→19:59)
[2021-08-14] MEDS: diltiaZEM **CD** 180 MG CAP PO SCH (08:41)
[2021-08-14] MEDS: DOCUSATE SODIUM 100MG CAPSULE PO SCH (08:42)
[2021-08-14] MEDS: APIXABAN 5 MG TAB (ELIQUIS) PO SCH ×2 (08:42→20:02)
[2021-08-14] MEDS: PANTOPRAZOLE 40MG TAB (PROTONIX) PO SCH (08:42)
[2021-08-14] MEDS: SUCRALFATE 1 GM TAB PO SCH ×4 (08:42→20:01)
[2021-08-14] MEDS ORDERED: ACETAMINOPHEN TAB 650MG DOSE (2X325MG) PO PRN (15:50)
[2021-08-14] MEDS: TAMSULOSIN 0.4 MG CAP PO SCH (20:02)
[2021-08-15 06:00] VITALS: BP 122/68
[2021-08-15] MEDS: TIOTROPIUM INHALER/CAPSULE (SPIRIVA) INH SCH (07:20)
[2021-08-15] MEDS: HumaLOG INSULIN (NovoLOG) PER UNIT SC SCH ×2 (08:34→12:51)
[2021-08-15] MEDS: SUCRALFATE 1 GM TAB PO SCH ×2 (08:34→13:00)
[2021-08-15] MEDS: DOCUSATE SODIUM 100MG CAPSULE PO SCH (09:25)
[2021-08-15 09:26] VITALS: BP 119/69
[2021-08-15] MEDS: APIXABAN 5 MG TAB (ELIQUIS) PO SCH (09:26)
[2021-08-15] MEDS: PANTOPRAZOLE 40MG TAB (PROTONIX) PO SCH (09:26)
[2021-08-15] MEDS: diltiaZEM **CD** 180 MG CAP PO SCH (09:26)
[2021-08-15] MEDS ORDERED: VENTAER INH (11:03)
[2021-08-15] MEDS ORDERED: TAMS1CAP17 PO (11:03)
[2021-08-15] MEDS ORDERED: INSUDET SC (11:03)
== END 2021-08-15 14:00 | disposition home health service (06) | DRG 698 ==
LOC: M ED 21:21 → M ED INP 08-07 02:32 → M MSPAV 08-07 04:30
PROVIDERS: ADMIT Family Medicine; ATTEND Internal Medicine
DX: T83.511A Infection and inflammatory reaction due to indwelling urethral catheter, initial encounter (principal); J18.9 Pneumonia, unspecified organism; G93.41 Metabolic encephalopathy; J96.10 Chronic respiratory failure, unspecified whether with hypoxia or hypercapnia; I48.20 Chronic atrial fibrillation, unspecified; J44.0 Chronic obstructive pulmonary disease with (acute) lower respiratory infection; N39.0 Urinary tract infection, site not specified; R07.89 Other chest pain; E11.22 Type 2 diabetes mellitus with diabetic chronic kidney disease; N18.2 Chronic kidney disease, stage 2 (mild); Z66 Do not resuscitate; I12.9 Hypertensive chronic kidney disease with stage 1 through stage 4 chronic kidney disease, or unspecified chronic kidney disease; E78.5 Hyperlipidemia, unspecified; I25.10 Atherosclerotic heart disease of native coronary artery without angina pectoris; B96.5 Pseudomonas (aeruginosa) (mallei) (pseudomallei) as the cause of diseases classified elsewhere; Z99.81 Dependence on supplemental oxygen; Z90.49 Acquired absence of other specified parts of digestive tract; Z87.81 Personal history of (healed) traumatic fracture; Z87.891 Personal history of nicotine dependence; R11.2 Nausea with vomiting, unspecified; Z79.01 Long term (current) use of anticoagulants; Z79.4 Long term (current) use of insulin; Z79.899 Other long term (current) drug therapy; Z86.16 Personal history of COVID-19; Y84.6 Urinary catheterization as the cause of abnormal reaction of the patient, or of later complication, without mention of misadventure at the time of the procedure

== ENCOUNTER → 2021-12-25 | Emergency (ER) | payer MEDICARE, OTHER ==
[~2021-12-25] VITALS: Ht 177.8 cm; Wt 79.5 kg
[~2021-12-25] MED LIST changes: +ACETAMINOPHEN 325 MG SUPP PR ONE; +ACETAMINOPHEN 650 MG SUPP PR ONE; +INSUDET SC; +NS 1,000 ML IV ONE; +VENTAER INH
== END | disposition expired ==
LOC: M ED 19:14
DX: I46.9 Cardiac arrest, cause unspecified (principal); A41.9 Sepsis, unspecified organism; R00.0 Tachycardia, unspecified; E78.5 Hyperlipidemia, unspecified; E11.9 Type 2 diabetes mellitus without complications; I13.10 Hypertensive heart and chronic kidney disease without heart failure, with stage 1 through stage 4 chronic kidney disease, or unspecified chronic kidney disease; J44.9 Chronic obstructive pulmonary disease, unspecified; Z79.01 Long term (current) use of anticoagulants; Z79.899 Other long term (current) drug therapy